=== PATIENT | male | born 1960 | race Caucasian/White ===

== ENCOUNTER → 2016-04-02 | Outpatient (CLI) | payer BC ==
[2016-04-02 08:31] LABS: Basophils # (A) 0.1 k/uL (0-0.2); Basophils % (A) 2 %; CHCM 35.8; Eosinophils # (A) 0.2 k/uL (0-0.7); Eosinophils % (A) 3 %; HCT 47.9 % (39.0-53.0); HDW 2.56; HGB 16.3 gm/dL (13.0-17.5); Luc # (Auto) 0.14; Luc % (Auto) 2; Lymphocytes # (A) 2.4 k/uL (1.0-4.8); Lymphocytes % (A) 34 %; MCH 30.6 pg (25.0-35.0); MCHC 34.1 g/dL (31.0-37.0); MCV 89.8 fL (80.0-100.0); Mean Platelet Volume 7.5; Monocytes # (A) 0.3 k/uL (0-1.0); Monocytes % (A) 5 %; Neutrophils # (A) 3.9 k/uL (1.3-7.7); Neutrophils % (A) 55 %; RBC 5.34 m/uL (4.30-5.90); RDW 12.4 % (11.5-15.5); WBC (Perox) 6.65
[2016-04-02 09:53] LABS: ALT 72 U/L (21-72); AST 39 U/L (17-59); Alkaline Phosphatase 60 U/L (38-126); Anion Gap 9 mmol/L; Blood Urea Nitrogen 14 mg/dL (9-20); Calcium 9.5 mg/dL (8.4-10.2); Carbon Dioxide 27 mmol/L (22-30); Chloride 105 mmol/L (98-107); Cholesterol 236 mg/dL (<200); Glucose 91 mg/dL (74-99); HDL Cholesterol 45 mg/dL (40-60); Non-African American GFR(MDRD) >60 (>60 ml/min/1.73 sqM); Potassium 4.5 mmol/L (3.5-5.1); Sodium 141 mmol/L (137-145); Total Bilirubin 1.2 mg/dL (0.2-1.3); Total Protein 7.1 g/dL (6.3-8.2); Triglycerides 196 mg/dL (<150)
== END | disposition home or self-care (01) ==
LOC: LABWHC1 08:04
PROVIDERS: ATTEND Internal Medicine Critical Care Medicine
DX: Z00.00 Encounter for general adult medical examination without abnormal findings (principal); K21.9 Gastro-esophageal reflux disease without esophagitis; N40.0 Benign prostatic hyperplasia without lower urinary tract symptoms; E78.5 Hyperlipidemia, unspecified; I10 Essential (primary) hypertension
CPT/HCPCS: 84439; 80061; 80053; 83036; 84443; 85025; 82306; 36415; G0103

== ENCOUNTER 2016-06-08 07:04 | Emergency (ER) | payer BC ==
[2016-06-08 07:18] VITALS: BP 128/89; PULSE 97; RESP 20; TEMP 98.5
--- NOTE | 2016-06-08 07:51 | ED ---
General Adult HPI - General Chief complaint: Fall Stated complaint: Fall Time Seen by Provider: 06/08/16 07:25 Source: patient, RN notes reviewed, old records reviewed Mode of arrival: wheelchair Limitations: no limitations - History of Present Illness Initial comments: This is a 56-year-old male the ER for evaluation of fall. Patient has a fall twisting injury to right ankle. Patient also does have injury to his incomplete right side right ankle right shoulder right wrist right elbow he has had positive loss of consciousness. Patient's main location of pain in his right ankle. Patient states follows mechanical in nature he was able to ambulate today - Related Data Home Medications Medication Instructions Recorded Confirmed Ergocalciferol [Vitamin D2] 50,000 unit PO HOFFMAN 06/08/16 06/08/16 Levothyroxine Sodium [Synthroid] 125 mcg PO DAILY 06/08/16 06/08/16 Allergies Allergy/AdvReac Type Severity Reaction Status Date / Time Penicillins AdvReac Anaphylaxis Verified 06/08/16 08:13 Review of Systems ROS Statement: Those systems with pertinent positive or pertinent negative responses have been documented in the HPI. ROS Other: All systems not noted in ROS Statement are negative. Past Medical History Past Medical History: No Reported History History of Any Multi-Drug Resistant Organisms: None Reported Past Surgical History: Orthopedic Surgery Additional Past Surgical History / Comment(s): right knee Past Psychological History: No Psychological Hx Reported Smoking Status: Never smoker Past Alcohol Use History: Rare Past Drug Use History: None Reported General Exam Limitations: no limitations General appearance: alert, in no apparent distress Head exam: Present: atraumatic, normocephalic, normal inspection Eye exam: Present: normal appearance, PERRL, EOMI. Absent: scleral icterus, conjunctival injection, periorbital swelling ENT exam: Present: normal exam, mucous membranes moist Neck exam: Present: normal inspection. Absent: tenderness, meningismus, lymphadenopathy Respiratory exam: Present: normal lung sounds bilaterally. Absent: respiratory distress, wheezes, rales, rhonchi, stridor Cardiovascular Exam: Present: regular rate, normal rhythm, normal heart sounds. Absent: systolic murmur, diastolic murmur, rubs, gallop, clicks GI/Abdominal exam: Present: soft, normal bowel sounds. Absent: distended, tenderness, guarding, rebound, rigid Extremities exam: Present: normal inspection, full ROM, normal capillary refill , other (Right ankle edema). Absent: tenderness, pedal edema, joint swelling, calf tenderness Back exam: Present: normal inspection Neurological exam: Present: alert, oriented X3, CN II-XII intact Psychiatric exam: Present: normal affect, normal mood Skin exam: Present: warm, dry, intact, normal color. Absent: rash Course Vital Signs 06/08/16 07:15 Temperature 98.5 F Pulse Rate 97 Respiratory 20 Rate Blood Pressure 128/89 O2 Sat by Pulse 97 Oximetry - Reevaluation(s) Reevaluation #1: 06/08/16 08:22 At this point patient's pain is improved Medical Decision Making - Medical Decision Making 36 middle ear status post fall, entire right body contusion. No fractures. Patient can be discharged home - Radiology Data Radiology results: report reviewed (CT brain and C-spine negative for acute disease, x-ray right ankle, x-ray right elbow wrist shoulder chest and pelvis are negative for any acute injury), image reviewed Disposition Clinical Impression: Fall, Contusion Disposition: HOME SELF-CARE Condition: Good Instructions: Contusion in Adults (ED) Referrals: Simone Howell DO [Primary Care Provider] - 1-2 days
--- NOTE | 2016-06-08 08:01 | CT ---
EXAMINATION TYPE: CT brain anithaine wo con DATE OF EXAM: 06/08/2016 7:53 AM COMPARISON: NONE HISTORY: fell and hit Rt parietal region CT DLP: Brain 1144.7, Cervical 677.[address] of the brain was performed. The ventricles, basal cisterns and sulci overlying the cerebral convexities demonstrate enlargement. There is no evidence for intracranial hemorrhage or sulcal effacement. There is decreased attenuatio n about the periventricular white matter and deep white matter of both cerebral hemispheres, compatib le with chronic small vessel ischemia. No mass effects are seen. If symptoms persist consider MRI. Osseous calvarium is intact. IMPRESSION: 1. Age related atrophic and chronic small vessel ischemic change without acute intracranial process seen at this time. CT Cervical Spine: Unenhanced CT of the cervical spine was performed with bone and soft tissue window settings submitted . Coronal and sagittal reconstruction is obtained. There is normal alignment and prevertebral soft tissues. No evidence for acute cervical fracture . Scattered degenerative disc disease and spondylosis. Biapical scarring. IMPRESSION: 1. No evidence for acute fracture or subluxation of the cervical spine.
--- NOTE | 2016-06-08 08:11 | XR ---
EXAMINATION TYPE: XR pelvis AP view DATE OF EXAM: 06/08/2016 8:05 AM CLINICAL HISTORY: pain TECHNIQUE: Single view the pelvis is submitted. FINDINGS: No evidence for fracture, dislocation or bony lesion. Joint spaces are well-preserved. S I joints appear symmetric. IMPRESSION: 1. No acute fracture or dislocation seen. ICD 10 NO FRACTURE, INITIAL EVALUATION
--- NOTE | 2016-06-08 08:12 | XR ---
EXAMINATION TYPE: XR ankle complete RT DATE OF EXAM: 06/08/2016 8:05 AM COMPARISON: NONE HISTORY: Pain TECHNIQUE: Frontal, lateral and oblique images of the right ankle are obtained. COMPARISON: None. FINDINGS: There is no acute fracture/dislocation evident. The joint spaces appear within normal mays its. The overlying soft tissue appears unremarkable. IMPRESSION: There is no acute fracture or dislocation seen.
--- NOTE | 2016-06-08 08:13 | XR ---
EXAMINATION TYPE: XR chest 1V DATE OF EXAM: 06/08/2016 8:05 AM HISTORY: Shortness of breath. COMPARISON: None. TECHNIQUE: Single view of the chest is submitted. FINDINGS: Demonstrated are scattered senescent parenchymal change. There is no evidence for focal infiltrate. The heart is stable. Hilar and mediastinal structures are within normal limits. Degenerative changes are seen of the dorsal spine. IMPRESSION: 1. Chronic changes without evidence for acute pulmonary disease.
--- NOTE | 2016-06-08 08:13 | XR ---
EXAMINATION TYPE: XR shoulder complete RT DATE OF EXAM: 06/08/2016 8:05 AM CLINICAL HISTORY: pain TECHNIQUE: Three views of the right shoulder are obtained. COMPARISON: None FINDINGS: There is no acute fracture/dislocation evident. The acromioclavicular and glenohumeral kaitlin int spaces appear within normal limits. The visualized ribs are intact and unremarkable. IMPRESSION: 1. There is no acute fracture or dislocation. ICD 10 NO FRACTURE, INITIAL EVALUATION
--- NOTE | 2016-06-08 08:14 | XR ---
EXAMINATION TYPE: XR wrist complete RT DATE OF EXAM: 06/08/2016 8:05 AM CLINICAL HISTORY: pain TECHNIQUE: Frontal, lateral and oblique images of the right wrist are obtained. Scaphoid view is als o submitted. COMPARISON: None. FINDINGS: There is no acute fracture/dislocation evident. The joint spaces appear within normal limits. The o verlying soft tissue appears unremarkable. IMPRESSION: There is no acute fracture or dislocation seen. ICD 10 NO FRACTURE, INITIAL EVALUATION
--- NOTE | 2016-06-08 08:15 | XR ---
EXAMINATION TYPE: XR elbow complete RT DATE OF EXAM: 06/08/2016 8:05 AM CLINICAL HISTORY: pain TECHNIQUE: Frontal, lateral and oblique images of the right elbow are obtained. COMPARISON: None. FINDINGS: There is no acute fracture/dislocation evident of the elbow. No abnormal fat pad signs ar e seen. Olecranon spurring is noted. The overlying soft tissue appears unremarkable. IMPRESSION: There is no acute fracture or dislocation of the elbow. ICD 10 NO FRACTURE, INITIAL EVALUATION
== END 2016-06-08 08:38 | disposition home or self-care (01) ==
LOC: EC 07:04
DX: S90.01XA Contusion of right ankle, initial encounter (principal); S40.011A Contusion of right shoulder, initial encounter; S60.211A Contusion of right wrist, initial encounter; S50.01XA Contusion of right elbow, initial encounter; S09.90XA Unspecified injury of head, initial encounter; Z88.0 Allergy status to penicillin; Z79.899 Other long term (current) drug therapy; W19.XXXA Unspecified fall, initial encounter
CPT/HCPCS: 70450; 71010; 72125; 72170; 99284

== ENCOUNTER → 2017-05-13 | Outpatient (CLI) | payer BC ==
[2017-05-13 09:05] LABS: Basophils # (A) 0.1 k/uL (0-0.2); Basophils % (A) 1 %; Eosinophils # (A) 0.1 k/uL (0-0.7); Eosinophils % (A) 2 %; HCT 50.2 % (39.0-53.0); HGB 16.8 gm/dL (13.0-17.5); Lymphocytes % (A) 32 %; MCH 28.8 pg (25.0-35.0); MCHC 33.5 g/dL (31.0-37.0); Mean Platelet Volume 7.2; Monocytes # (A) 0.4 k/uL (0-1.0); Monocytes % (A) 6 %; Neutrophils # (A) 3.8 k/uL (1.3-7.7); Neutrophils % (A) 59 %; Platelet Count 239 k/uL (150-450); RBC 5.84 m/uL (4.30-5.90); RDW 12.4 % (11.5-15.5); WBC 6.5 k/uL (3.8-10.6)
[2017-05-13 09:26] LABS: ALT 44 U/L (21-72); AST 31 U/L (17-59); Alkaline Phosphatase 82 U/L (38-126); Anion Gap 11 mmol/L; Blood Urea Nitrogen 17 mg/dL (9-20); Calcium 9.8 mg/dL (8.4-10.2); Carbon Dioxide 29 mmol/L (22-30); Chloride 103 mmol/L (98-107); Cholesterol 201 mg/dL (<200); Glucose 88 mg/dL (74-99); HDL Cholesterol 48 mg/dL (40-60); LDL Cholesterol,Calculated 105 mg/dL (0-99); Potassium 4.5 mmol/L (3.5-5.1); Sodium 143 mmol/L (137-145); Total Bilirubin 0.9 mg/dL (0.2-1.3); Total Protein 7.2 g/dL (6.3-8.2); Triglycerides 242 mg/dL (<150)
[2017-05-13 09:39] LABS: T4, Free (Free Thyroxine) 1.17 ng/dL (0.78-2.19)
[2017-05-13 09:53] LABS: PSA Annual Screen 1.27 ng/mL (0.00-4.00)
[2017-05-13 18:37] LABS: Hemoglobin A1C 4.9 % (4.0-6.0)
== END ==
LOC: LABWHC1 08:06
PROVIDERS: ATTEND Internal Medicine Critical Care Medicine
DX: Z00.00 Encounter for general adult medical examination without abnormal findings (principal); E78.5 Hyperlipidemia, unspecified; I10 Essential (primary) hypertension; N40.0 Benign prostatic hyperplasia without lower urinary tract symptoms; Z12.5 Encounter for screening for malignant neoplasm of prostate
CPT/HCPCS: 84439; 80061; 80053; 84443; 85025; 82306; 83036; 36415; G0103

== ENCOUNTER → 2018-05-19 | Outpatient (CLI) | payer BC ==
[2018-05-19 09:27] LABS: Basophils # (A) 0.1 k/uL (0-0.2); Basophils % (A) 1 %; Eosinophils # (A) 0.2 k/uL (0-0.7); Eosinophils % (A) 2 %; HCT 46.5 % (39.0-53.0); Lymphocytes # (A) 2.3 k/uL (1.0-4.8); Lymphocytes % (A) 37 %; MCH 29.8 pg (25.0-35.0); MCHC 34.4 g/dL (31.0-37.0); MCV 86.7 fL (80.0-100.0); Mean Platelet Volume 9.4; Monocytes # (A) 0.3 k/uL (0-1.0); Monocytes % (A) 5 %; Neutrophils # (A) 3.4 k/uL (1.3-7.7); Neutrophils % (A) 54 %; Platelet Count 210 k/uL (150-450); RBC 5.37 m/uL (4.30-5.90); RDW 15.1 % (11.5-15.5); WBC 6.3 k/uL (3.8-10.6)
[2018-05-19 16:50] LABS: Albumin 3.9 g/dL (3.80-4.90); Albumin/Globulin Ratio 1.7 (1.60-3.17); Anion Gap 6.7 mmol/L (4.00-12.00); Calcium 9.4 mg/dL (8.7-10.3); Carbon Dioxide 29.3 mmol/L (21.6-31.8); Globulin 2.3 g/dL (1.6-3.3); Potassium 4.4 mmol/L (3.5-5.5); Total Bilirubin 1.1 mg/dL (0.2-1.2); Total Protein 6.2 g/dL (6.2-8.2)
[2018-05-19 16:51] LABS: Bilirubin, Conjugated 0.2 mg/dL (0.20-0.40); Bilirubin,Unconjugated 0.9 mg/dL; LDL Cholesterol,Calculated 94.4 mg/dL (0.0-131.0); VLDL Calculation 60.6 mg/dL (5.00-40.00)
[2018-05-19 17:00] LABS: T4, Free (Free Thyroxine) 1.3 ng/dL (0.80-1.80)
[2018-05-19 21:22] LABS: Hemoglobin A1C 5.1 % (4.0-6.0)
== END | disposition home or self-care (01) ==
LOC: LABWHC1 08:12
PROVIDERS: ATTEND Internal Medicine Critical Care Medicine
DX: Z00.00 Encounter for general adult medical examination without abnormal findings (principal); I10 Essential (primary) hypertension; E78.5 Hyperlipidemia, unspecified; Z79.899 Other long term (current) drug therapy
CPT/HCPCS: 84439; 84481; 80061; 80053; 82248; 84443; 85025; 83036; 36415; G0103

== ENCOUNTER → 2018-06-06 | Outpatient (CLI) | payer BC ==
--- NOTE | 2018-06-11 16:43 | MR ---
MR right hip HISTORY: Pain in right hip Multiplanar multisequence imaging through the pelvis with small [id number] imaging through the rig ht hip Comparison plain film 05/28/2018, 05/10/2018 There is mild increased signal at the insertion of the gluteus medius tendon on the greater trochante r, there may be some local tendinosis. There is no evident joint effusion. Grade II chondromalacia ch anges are suspected in the right hip. Suspect there may be some labral sulcus. No joint effusion. Clu ster of grapes T2 intense focus within the medial ischium posterior aspect shows intermediate signal on T1-weighted images, there is no associated mass, lesion is clustered grapes type appearance measur ing approximately 12 mm. The prostate is enlarged. Bladder wall thickening is likely due to chronic outlet obstruction. IMPRESSION: Mild osteoarthritis. There may be tendinosis of the gluteus medius medius insertion. Abigail ggressive appearing lesion within the right ischium as described may represent an chondroma or gangli on cyst, follow-up could be performed to assess for stability.
== END | disposition home or self-care (01) ==
LOC: RADMRIMAIN 16:44
PROVIDERS: ATTEND Orthopaedic Surgery
DX: M16.11 Unilateral primary osteoarthritis, right hip (principal); M89.9 Disorder of bone, unspecified

== ENCOUNTER 2018-09-12 06:17 | Day surgery (SDC) | payer BC ==
[2018-09-06 15:49] VITALS: BMI 30.9
[~2018-09-12 06:17] MED LIST: LACTATED RINGERS 1,000 ML IV SCH
[2018-09-12 06:35] VITALS: RESP 16
[2018-09-12 06:39] VITALS: TEMP 97
[2018-09-12] MEDS ORDERED: LIDOCAINE 1% 20 ML VIAL (10MG/ML) FOR IV START INTRADERMA ONE (06:43)
[2018-09-12] MEDS ORDERED: IV FLUID CONTINUATION 1,000 ML IV ONE (07:41)
[2018-09-12 08:26] VITALS: BP 145/92; PULSE 71
--- NOTE | 2018-09-12 08:34 | FL ---
EXAMINATION TYPE: FL guided pain mgmt statistic DATE OF EXAM: 09/12/2018 CLINICAL HISTORY: Low back pain. Fluoroscopic documentation for lumbar epidural injection TECHNIQUE: Fluoroscopy. COMPARISON: None. FINDINGS: Fluoroscopic guidance was provided during pain relief procedure performed by Dr. Hyman. A t otal of 2 seconds of fluoroscopic time was utilized during the procedure and 1 spot images are acquir ed. Images acquired shows needle localization of the lumbar spine. However, it is noted in the notes that the examination was aborted due to patient pain. IMPRESSION: As Above.
--- NOTE | 2018-09-12 09:37 | P.PCN ---
Date of Procedure: 09/12/18 Procedure(s) Performed: PREOPERATIVE DIAGNOSIS: 1- Lumbar radiculopathy, Lumbar Degenerative Disc Diseases 2-Lumbar spondylosis with Facet arthropathy without myelopathy POSTOPERATIVE DIAGNOSIS: 1-Lumber Degenerative Disc Diseases 2-Lumbar spondylosis with Facet arthropathy without myelopathy PROCEDURE Patient was scheduled to have L1-2 lumbar epidural steroid injection. Patient was prepped and draped in the usual sterile fashion and skin and subcu tissue was anesthetized with 3 mL of 1% lidocaine. A 20-gauge Tuohy needle was advanced to word the epidural space. At the time of advancement, patient reported that he was feeling lightheaded, heart rate dropped from high 50s to low 30s. Patient then lost consciousness. Needle was removed from back and patient placed supine on stretcher. 1 mg of atropine was given IV and I initiated chest compressions for about 1 second, then patient had return of consciousness. Blood pressure and heart rate were stable. Procedure was aborted. I suspect that patient had a vasovagal attack. No other treatment was given. Patient was monitored for about an hour in the recovery room. Vital signs were stable. Patient was told that we will reschedule this procedure. We will plan on pretreating with IV atropine and 1 L fluid bolus prior to procedure to avoid vasovagal attack. Patient expressed understanding
== END 2018-09-12 09:02 | disposition home or self-care (01) ==
LOC: ORPAIN 06:17
PROVIDERS: ATTEND Anesthesiology
DX: M51.16 Intervertebral disc disorders with radiculopathy, lumbar region (principal); M47.26 Other spondylosis with radiculopathy, lumbar region; Z53.8 Procedure and treatment not carried out for other reasons; I97.791 Other intraoperative cardiac functional disturbances during other surgery
CPT/HCPCS: 62323; J2250; J0461; J3010; 99152

== ENCOUNTER → 2019-12-11 | Day surgery (SDC) | payer BC ==
[2019-12-09 11:48] VITALS: BMI 30.9
[~2019-12-11] MED LIST changes: +LIDOCAINE 1% INJ 10MG/ML (20 ML MDV) ONE; +MIDAZOLAM 2 MG/2 ML VIAL IV PRN; +ONDANSETRON 4 MG/2 ML VIAL IVP PRN; +PROPOFOL 10 MG/ML 20 ML VIAL IV ONE; +fentaNYL (PF) 50 MCG/ML 2 ML AMP IV PRN
[2019-12-11 10:10] VITALS: RESP 16
--- NOTE | 2019-12-11 11:26 | P.PCN ---
Date of Procedure: 12/11/19 Procedure(s) Performed: Brief history: Patient is a pleasant 59-year-old white male scheduled for an elective upper endoscopy as well as colonoscopy as a part of evaluation of GERD and screening for colorectal neoplasia. Procedure performed: Esophagogastroduodenoscopy with biopsy Colonoscopy Preoperative diagnosis: GERD Screening for colon cancer Anesthesia: MAC Procedure: After informed consent was obtained from the patient was brought into the endoscopy unit and IV sedation was administered by anesthesia under continuous monitoring. Initially upper endoscopy was done. The Olympus GF 160 video endoscope was inserted inserted into the mouth and esophagus intubated without any difficulty and was gradually advanced into the stomach and duodenum and carefully examined. The bulb and second part of the duodenum appeared normal. The scope was then withdrawn into the stomach adequately insufflated with air and upon careful examination the antrum mild gastritis and biopsies were done from this area. The body, cardia and fundus appeared normal. The scope was then withdrawn into the esophagus. The GE junction was located at 40 cm to the incisors. small sliding Hernia Noted. There Was Circumferential Erythema of the GE Junction consistent with LA grade A Reflux Esophagitis. Also There Was a Widely Patent distal esophageal Schatzki's Ring Identified. Rest of the esophagus appeared normal. abscesses were done from the distal esophagus. Patient tolerated the procedure well. At this time the patient continued to remain sedation. Initial digital rectal examination was normal. Olympus CF 160 video colonoscope was then inserted into the rectum and gradually advanced to the cecum without any difficulty. Careful examination was performed as the scope was gradually being withdrawn. The prep was excellent. The cecum, ascending colon, transverse colon, descending colon, sigmoid colon and rectum appeared normal. Retroflexion was performed in the rectum and no lesions were noted. Patient tolerated the procedure well. Impression: 1. Upper Endoscopy revealed small hiatal hernia, LA grade a reflux esophagitis. Small hiatal hernia widely patent distal esophageal Schatzki's ring. 2. Colonoscopy was within normal limits with no evidence of colitis or color ectal neoplasia Recommendations: Findings of this examination were discussed with the patient as well as family. He was advised to follow with the biopsy results. he will remain on omeprazole 20 mg daily and follow antireflux measures. He can have a repeat screening colonoscopy in 10 years.
[2019-12-11 11:32] VITALS: BP 142/94; PULSE 87
== END ==
LOC: ORWHC2ENDO 09:05
PROVIDERS: ATTEND Internal Medicine Gastroenterology
DX: Z12.11 Encounter for screening for malignant neoplasm of colon (principal); K29.50 Unspecified chronic gastritis without bleeding; K22.2 Esophageal obstruction; K21.00 Gastro-esophageal reflux disease with esophagitis, without bleeding; K44.9 Diaphragmatic hernia without obstruction or gangrene; G47.33 Obstructive sleep apnea (adult) (pediatric); M10.9 Gout, unspecified; E07.9 Disorder of thyroid, unspecified; Z88.0 Allergy status to penicillin; Z79.890 Hormone replacement therapy; Z79.899 Other long term (current) drug therapy; Z90.49 Acquired absence of other specified parts of digestive tract; Z99.89 Dependence on other enabling machines and devices
CPT/HCPCS: 88305; 43239; J2001; J2704; G0121

== ENCOUNTER → 2020-01-02 | Outpatient (CLI) | payer BC ==
--- NOTE | 2020-01-02 22:52 | CT ---
EXAMINATION TYPE: CT pelvis wo con DATE OF EXAM: 01/02/2020 COMPARISON: None HISTORY: Radiculopathy CT DLP: 485.1 mGycm Automated exposure control for dose reduction was used. FINDINGS: Some facet hypertrophy is present L5-S1. No spinal canal stenosis is noted. Some endplate spurring at S1 may be present with moderate bilateral foraminal narrowing may be present. Correlate with the rad icular symptoms Femoral heads articulate with the acetabulum. Symphysis pubis is normal. Sacroiliac joints are normal . Loops of bowel visualized normal. The appendix partially visualized is normal. Urinary bladder is unr emarkable. Prostate contains calcification. IMPRESSION: DEGENERATIVE DISC CHANGES L5-S1 WITH BILATERAL FORAMINAL NARROWING AT THIS LEVEL.
== END | disposition home or self-care (01) ==
LOC: RADCTMAIN 10:51
DX: M54.16 Radiculopathy, lumbar region (principal)
CPT/HCPCS: 72192

== ENCOUNTER → 2020-04-24 | Outpatient (CLI) | payer OTHER ==
[2020-04-24 15:26] LABS: Basophils # (A) 0.05 X 10*3/uL (0.00-0.10); Eosinophils % (A) 1.9 %; HCT 46.4 % (39.6-50.0); HGB 16.3 g/dL (13.0-17.0); Lymphocytes # (A) 1.97 X 10*3/uL (0.90-5.00); Lymphocytes % (A) 37.8 %; MCH 31.2 pg (27.0-32.0); MCHC 35.1 g/dL (32.0-37.0); MCV 88.9 fL (80.0-97.0); Mean Platelet Volume 10.5 fL (9.5-12.2); Monocytes % (A) 7.7 %; Neutrophils # (A) 2.67 X 10*3/uL (1.80-7.70); Neutrophils % (A) 51.2 %; Platelet Count 242 X 10*3/uL (140-440); RBC 5.22 X 10*6/uL (4.40-5.60); RDW 12.2 % (11.5-14.5); WBC 5.21 X 10*3/uL (4.50-10.00)
[2020-04-24 18:23] LABS: Hemoglobin A1C 4.8 % (4.0-6.0)
[2020-04-24 19:12] LABS: African American GFR (CKD) 84.1 (60.0-200.0); Albumin 4.2 g/dL (3.80-4.90); Albumin/Globulin Ratio 1.83 (1.60-3.17); Anion Gap 8.8 mmol/L (4.00-12.00); BUN/Creat Ratio 13.64 Ratio (12.00-20.00); Calcium 9.7 mg/dL (8.7-10.3); Carbon Dioxide 26.2 mmol/L (21.6-31.8); Chol/HDL Ratio 5.29; Globulin 2.3 g/dL (1.6-3.3); LDL Cholesterol,Calculated 132.4 mg/dL (0.0-131.0); Non-African American GFR(CKD) 72.6 (60.0-200.0); Potassium 4.4 mmol/L (3.5-5.5); Total Bilirubin 1.1 mg/dL (0.2-1.2); Total Protein 6.5 g/dL (6.2-8.2); VLDL Calculation 30.6 mg/dL (5.00-40.00)
[2020-04-24 19:21] LABS: PSA Annual Screen 1.1 ng/mL (0.0-4.0); T4, Free (Free Thyroxine) 1.5 ng/dL (0.80-1.80)
== END | disposition home or self-care (01) ==
LOC: LABWHC1 07:46
PROVIDERS: ATTEND Internal Medicine Critical Care Medicine
DX: Z00.00 Encounter for general adult medical examination without abnormal findings (principal); N40.0 Benign prostatic hyperplasia without lower urinary tract symptoms; I10 Essential (primary) hypertension; K21.9 Gastro-esophageal reflux disease without esophagitis; E78.5 Hyperlipidemia, unspecified; G89.29 Other chronic pain
CPT/HCPCS: 84439; 80061; 80053; 84443; 85025; 82306; 83036; 36415; G0103

== ENCOUNTER → 2021-05-11 | Outpatient (CLI) | payer OTHER ==
[2021-05-11 10:15] LABS: Basophils # (A) 0.07 X 10*3/uL (0.00-0.10); Basophils % (A) 1.2 %; Eosinophils # (A) 0.12 X 10*3/uL (0.04-0.35); Eosinophils % (A) 2.1 %; Immature Grans, Automated 0.5 %; Lymphocytes # (A) 1.92 X 10*3/uL (0.90-5.00); Lymphocytes % (A) 33.2 %; MCH 30.5 pg (27.0-32.0); MCHC 33.3 g/dL (32.0-37.0); MCV 91.4 fL (80.0-97.0); Mean Platelet Volume 10.3 fL (9.5-12.2); Monocytes # (A) 0.42 X 10*3/uL (0.20-1.00); Monocytes % (A) 7.3 %; NRBC Per 100 WBC 0 /100 WBCS (0.0-0.0); Neutrophils # (A) 3.23 X 10*3/uL (1.80-7.70); Neutrophils % (A) 55.7 %; Platelet Count 200 X 10*3/uL (140-440); RBC 5.25 X 10*6/uL (4.40-5.60); RDW 12.1 % (11.5-14.5); WBC 5.79 X 10*3/uL (4.50-10.00)
[2021-05-11 10:40] LABS: ALT 47 U/L (10-49); AST 36 U/L (14-35); African American GFR (CKD) 78.3 (60.0-200.0); Albumin 4.1 g/dL (3.8-4.9); Albumin/Globulin Ratio 1.39 (1.60-3.17); Alkaline Phosphatase 60 U/L (41-126); BUN/Creat Ratio 11.98 Ratio (12.00-20.00); Blood Urea Nitrogen 13.9 mg/dL (9.0-27.0); Calcium 9.7 mg/dL (8.7-10.3); Carbon Dioxide 25.4 mmol/L (20.0-27.5); Chloride 104 mmol/L (96-109); Glucose 90 mg/dL (70-110); LDL Cholesterol,Calculated 119.7 mg/dL (0.0-131.0); Non-African American GFR(CKD) 67.6 (60.0-200.0); Potassium 4.5 mmol/L (3.5-5.5); Sodium 139 mmol/L (135-145); Total Protein 7.1 g/dL (6.2-8.2)
== END | disposition home or self-care (01) ==
LOC: LABWHC1 07:11
PROVIDERS: ATTEND Internal Medicine Critical Care Medicine
DX: Z00.00 Encounter for general adult medical examination without abnormal findings (principal); N40.0 Benign prostatic hyperplasia without lower urinary tract symptoms; E78.5 Hyperlipidemia, unspecified; I10 Essential (primary) hypertension
CPT/HCPCS: 36415; 80053; 80061; 82306; 83036; 84153; 84439; 84480; 85025

== ENCOUNTER → 2021-08-11 | Outpatient (CLI) | payer OTHER ==
--- NOTE | 2021-08-12 04:54 | MR ---
EXAMINATION TYPE: MR shoulder RT wo con DATE OF EXAM: 08/11/2021 COMPARISON: None HISTORY: Right shoulder pain and limited range of motion due to fall in april. Multiplanar multiecho imaging of the right shoulder with no contrast. There is a mild shoulder joint effusion with fluid around the subscapularis tendon. The biceps tendon is intact with fluid around the tendon. The glenoid adryan appear intact. There is some spurring at t he AC joint. The infraspinatus tendon shows some mild increased fluid signal. The supraspinatus tendo n shows very slight thickening and increased signal but no full-thickness tear. There is no evidence of a fracture. Glenohumeral joint is anatomic. IMPRESSION: There is some increased flow around the biceps tendon and subscapularis tendon consistent with some s ynovitis. No evidence of full-thickness rotator cuff tear. There is intrasubstance tears of the infra spinatus tendon and the supraspinatus tendon.
== END | disposition home or self-care (01) ==
LOC: RADMRIMAIN 18:38
PROVIDERS: ATTEND Orthopaedic Surgery
DX: M25.511 Pain in right shoulder (principal); W19.XXXA Unspecified fall, initial encounter; Z91.81 History of falling

== ENCOUNTER → 2021-08-18 | Outpatient (CLI) | payer OTHER ==
[2021-08-18 14:26] LABS: Basophils # (A) 0.06 X 10*3/uL (0.00-0.10); Basophils % (A) 1.1 %; Eosinophils % (A) 1.8 %; HCT 47.3 % (39.6-50.0); HGB 15.8 g/dL (13.0-17.0); Immature Grans, Automated 0.2 %; Lymphocytes # (A) 1.61 X 10*3/uL (0.90-5.00); Lymphocytes % (A) 29.1 %; MCHC 33.4 g/dL (32.0-37.0); MCV 89.9 fL (80.0-97.0); Mean Platelet Volume 10.7 fL (9.5-12.2); Monocytes # (A) 0.47 X 10*3/uL (0.20-1.00); Monocytes % (A) 8.5 %; NRBC Per 100 WBC 0 /100 WBCS (0.0-0.0); Neutrophils # (A) 3.28 X 10*3/uL (1.80-7.70); Neutrophils % (A) 59.3 %; Platelet Count 227 X 10*3/uL (140-440); RBC 5.26 X 10*6/uL (4.40-5.60); WBC 5.53 X 10*3/uL (4.50-10.00)
[2021-08-18 14:28] LABS: African American GFR (CKD) 83.5 (60.0-200.0); Anion Gap 8.4 mmol/L (10.00-18.00); BUN/Creat Ratio 11.27 Ratio (12.00-20.00); Blood Urea Nitrogen 12.4 mg/dL (9.0-27.0); Calcium 9.5 mg/dL (8.7-10.3); Carbon Dioxide 26.6 mmol/L (20.0-27.5); Non-African American GFR(CKD) 72.1 (60.0-200.0); Potassium 4.4 mmol/L (3.5-5.5)
== END | disposition home or self-care (01) ==
LOC: LABPAT 09:47
PROVIDERS: ATTEND Orthopaedic Surgery
DX: Z01.812 Encounter for preprocedural laboratory examination (principal); M75.41 Impingement syndrome of right shoulder
CPT/HCPCS: 80048; 85025

== ENCOUNTER 2021-09-17 07:44 | Day surgery (SDC) | payer OTHER ==
--- NOTE | 2021-09-02 08:25 | HP ---
HISTORY AND PHYSICAL CHIEF COMPLAINT: Right shoulder pain. HISTORY OF PRESENT ILLNESS: The patient is a 61-year-old, right-hand dominant, retired gentleman who presents with persistent/progressive right shoulder pain and weakness after an injury on April 16, 2021. He notes anterior lateral pain when trying to reach overhead and out to the side. He is having significant night symptoms. He has tried therapy in addition he has tried medications and previous injections, without much relief. PAST MEDICAL HISTORY: Significant for hypothyroidism. PAST SURGICAL HISTORY: Significant for right knee surgery, lumbar spine surgery, cholecystectomy, and bilateral carpal tunnel release. CURRENT MEDICATIONS: Synthroid, aspirin. ALLERGIES: HE HAS ALLERGIES TO PENICILLIN, TESTOSTERONE, AND HEPARIN. FAMILY HISTORY: Significant for cancer. SOCIAL HISTORY: Significant for previous tobacco use. REVIEW OF SYSTEMS: 16-point review of systems otherwise is reviewed and is noncontributory. PHYSICAL EXAMINATION: On examination, the patient is approximately 6 foot 1, 240 pounds of endomorphic habitus. HEENT exam is nonfocal. Neck is supple. Examination of right shoulder: He is tender about the anterior subacromial space. Active range of motion. Forward elevation 145 degrees. External rotation with arm at side 60 degrees, internal rotation to L4. Motor strength is 4+/5 for external rotation and abduction. Passive forward elevation is 145 degrees. Impingement test, Neer test and Speed test are positive. His distal neurovascular exam appears intact in the right upper extremity. MRI report right shoulder 08/11/2021 shows evidence of synovitis along with increasing along the anterior supraspinatus. IMPRESSION: 1. Right rotator cuff strain/glenohumeral synovitis. 2. Possible partial-thickness rotator cuff tear/proximal biceps tendinosis. RECOMMENDATIONS: I talked to the patient at length regarding his condition along with treatment options. At this point, he is quite symptomatic despite previous conservative measures. After thorough discussion, he opts to proceed with surgery. We will plan to proceed with arthroscopic evaluation with probable subacromial decompression/synovectomy/rotator cuff debridement versus repair in addition, possible biceps tenotomy. We will likely perform that as an outpatient procedure. Risks and benefits were discussed at length in layman's terms. MMODL / IJN: [id number] /
[2021-09-15 09:59] VITALS: BMI 31.4
[~2021-09-17 07:44] MED LIST changes: +DEXAMETHASONE SOD PHOSPHATE 4 MG/ML 1 ML VIAL IV ONE; +HYDROmorphone 0.5 MG/0.5 ML SYRINGE IVP PRN; +LIDOCAINE 1% (10MG/ML) FOR IV START INTRADERMA PRN; -LIDOCAINE 1% INJ 10MG/ML (20 ML MDV) ONE; -MIDAZOLAM 2 MG/2 ML VIAL IV PRN; +ONDANSETRON 4 MG/2 ML VIAL IVP ONE; -ONDANSETRON 4 MG/2 ML VIAL IVP PRN; -PROPOFOL 10 MG/ML 20 ML VIAL IV ONE; -fentaNYL (PF) 50 MCG/ML 2 ML AMP IV PRN
[2021-09-17] MEDS ORDERED: LACTATED RINGERS 1,000 ML IV ONE (08:30)
[2021-09-17] MEDS ORDERED: ONDANSETRON 4 MG/2 ML VIAL IVP ONE (08:35)
[2021-09-17] MEDS ORDERED: DEXAMETHASONE SOD PHOSPHATE 4 MG/ML 1 ML VIAL IVP ONE (08:35)
[2021-09-17] MEDS ORDERED: KETAMINE 10 MG/ML 20 ML VIAL ONE (09:59)
[2021-09-17] MEDS ORDERED: GLYCOPYRROLATE 0.2 MG/ML 2 ML VIAL ONE (09:59)
[2021-09-17] MEDS ORDERED: PROPOFOL 10 MG/ML 20 ML VIAL IV ONE (09:59)
[2021-09-17] MEDS ORDERED: LIDOCAINE 2% INJ 20 MG/ML (2 ML VIAL) ONE (09:59)
[2021-09-17] MEDS ORDERED: SUCCINYLCHOLINE CHLORIDE 200 MG/10 ML VIAL IV ONE (09:59)
[2021-09-17] MEDS ORDERED: fentaNYL (PF) 50 MCG/ML 2 ML AMP ONE (09:59)
[2021-09-17] MEDS ORDERED: MIDAZOLAM 2 MG/2 ML VIAL ONE (09:59)
[2021-09-17] MEDS ORDERED: ePHEDrine 50 MG/ML 1 ML VIAL ONE (09:59)
[2021-09-17] MEDS ORDERED: EPINEPHrine (PF) 1 ML in SODIUM CHLORIDE 0.9% IRRIGATIO 3,000 ML IRRIGATION ONE ×8 (10:02)
--- NOTE | 2021-09-17 11:33 | P.OP ---
Date of Procedure: 09/17/21 Preoperative Diagnosis: Right shoulder impingement/partial thickness rotator cuff tear Postoperative Diagnosis: High-grade partial-thickness tear anterior supraspinatus1 cm, posterior superior labral tear Procedure(s) Performed: Right shoulder arthroscopic subacromial decompression/rotator cuff repair/posterior labral debridement Implants: Arthrex 5.5 mm swivel lock anchor 1 Anesthesia: GETA Surgeon: Elio Wilcox Estimated Blood Loss (ml): 10 Pathology: none sent Condition: stable Disposition: PACU Indications for Procedure: The patient's a 61-year-old male who presents with progressive right shoulder pain after a recent injury despite conservative measures. A discussion of the risks and benefits of operative intervention versus continued conservative measures was had with the patient. He opted to proceed with surgery. Operative risks to include infection, neurovascular injury, development of blood clots, possible tendon rerupture, possible postoperative stiffness and need for subsequent procedures was discussed. Informed consent was obtained. Operative Findings: As below Description of Procedure: The patient was brought to the operating room, and after induction of general a nesthesia was placed in a beachchair position. A preoperative interscalene block was placed for postoperative analgesia. I examined the right shoulder. There was no gross block to passive motion or gross glenohumeral instability. The right upper extremity was prepped and draped in normal fashion. The bony outlines the acromion, distal clavicle, and coracoid process were outlined with a skin marker. The glenohumeral joint was inflated with 50 mL of saline utilizing a spinal needle from posterior approach. A posterior portal was made through a 5 mm skin incision 1 cm medial and inferior to the posterior lateral border time. A blunt trocar was used to easily into the joint. Diagnostic arthroscopy was performed. An anterior portal was made just lateral to the coracoid process entering the joint above the subscapularis tendon. The subscapularis tendon appeared to be intact. Anterior labrum was intact. The inferior recess was inspected. There was fraying/tearing of the posterior aspect of the superior labrum at the biceps anchor. This was debrided back to a stable base with a motorized shaver. The remaining biceps anchor was stable and intact. The biceps appeared to be intact. On inspection the rotator cuff, a high-grade tear involving the anterior aspect the supraspinatus was noted measuring approximately 1 cm. Proximally 80-90% of the tendon thickness was involved. This was debrided with a motorized shaver. The tear was completed. The posterior portion the rotator cuff was intact. The arthroscope was placed into the subacromial space. A lateral portal was made 2 centimeters inferior to the anterior lateral border of the acromion. The rotator cuff tear was identified and easily mobilized. The soft tissue on the undersurface of the acromion was debrided with a motorized shaver and electrocautery clearly defining the anterior medial and lateral borders as well as the distal clavicle. An anterior inferior acromioplasty was performed with a motorized yonis starting anterolateral, then extending this posteriorly, then extending this medially. I converted to a flat acromion and this was verified in the posterior and lateral viewing portals. The greater tuberosity was lightly decorticating with a shaver down to a bleeding bony surface. A #2 fiber wire was passed through the rotator cuff along with a fiber link. These 3 suture limbs were then placed in the lateral anchor that was inserted with the appropriate starting awl. Good purchase was obtained. Final arthroscopic view showed adequate compression at the footprint. The arthroscope was then removed. The portals were closed with simple 3-0 nylon sutures. A sterile dressing was applied in addition to a sling. The patient was then awoken from general anesthesia and transferred to recovery room in good condition. Blood loss was estimated at 10 mL. No complications were incurred. Sponge and needle counts were correct in the case. A nurse assisted during the major components of the case to include arm positioning, anchor placement, and rotator cuff repair.
[2021-09-17 11:38] VITALS: TEMP 97
[2021-09-17 12:19] VITALS: RESP 18
[2021-09-17 14:00] VITALS: BP 135/86; PULSE 86
== END 2021-09-17 14:20 | disposition home or self-care (01) ==
LOC: OR 07:44
PROVIDERS: ATTEND Orthopaedic Surgery
DX: S43.431A Superior glenoid labrum lesion of right shoulder, initial encounter (principal); X58.XXXA Exposure to other specified factors, initial encounter; E03.9 Hypothyroidism, unspecified; G47.33 Obstructive sleep apnea (adult) (pediatric); Z87.891 Personal history of nicotine dependence; K21.9 Gastro-esophageal reflux disease without esophagitis; Z80.9 Family history of malignant neoplasm, unspecified; Z79.82 Long term (current) use of aspirin; Z79.890 Hormone replacement therapy; Z88.0 Allergy status to penicillin; Z88.8 Allergy status to other drugs, medicaments and biological substances; Z91.09 Other allergy status, other than to drugs and biological substances
CPT/HCPCS: 29826; 29827; C1713 ×2; C1894; J2250; J0330; J1100; J0690; J2405; J0171; J3010; J2704; J1170; J2001

== ENCOUNTER → 2022-05-04 | Outpatient (CLI) | payer MEDICARE, OTHER ==
[2022-05-04 08:11] VITALS: BP 138/86; PULSE 73; RESP 18; TEMP 98.7
--- NOTE | 2022-05-04 14:25 | P.PAINPG ---
PQRS Measure Charge Sheet Comment: HISTORY OF PRESENT ILLNESS: 62 yr old male w at side as a referral from Dr Irene presents today w severe and chronic secondary to for evaluation. Pt states pain level is at 9 /10 in intensity, constant, localized in the R lower lumbar spine, sharp, achy in character w shooting pain towards the Buttocks. Pain is provoked by sitting for periods of 30 min or more. Pain is alleviated by PT x 2 mo which he is currently in, massage therapy at home, heat, medications (Ibu), topicals, repositioning and rest. PMH: OA, Hypothyroidism PSH: Lumbar Surgery (2001), LESI (2018), EGD/ Colonoscopy (2019), EGD (2022), Cholecystectomy, R RCT Repair (2021), R Knee Surgery, [facility], SH: Never smoker, Rare ETOH use, No illicit drug use FH: Non contributory All: PCN Meds: See lsit REVIEW OF ORGAN SYSTEMS: CONSTITUTIONAL: No fevers or chills. No recent weight loss. NEUROLOGICAL: + numbness and tingling along the distal extremities. No seizure disorders or headaches. MUSCULOSKELETAL: + pain PSYCHIATRIC: Denies current depression or suicidal thoughts. Physical Examinations : Constitutional : Cooperative , not in acute distress . Neurologic : Cranial nerve II to XII intact. No focal neurological deficits. Psychiatric : alert & oriented x 3. Matching mood & appropriate affect. Judgment & insight intact. Musculoskeletal : Cervical Spine Motor strength in the deltoid and biceps: Normal right side. Normal Left side Motor strength biceps and the wrist extensors: Normal right side . Normal left side Motor strength in the triceps muscle: Normal right side. Normal left side Deep tendon reflexes: Normal at the biceps. Normal at Brachioradialis. Normal at triceps Vertebral body tenderness to deep palpation over Cervical facet loading test: positive bilaterally Spurling test: positive bilaterally Neck distraction test: positive bilaterally Stevan sign: positive bilaterally Lumbar spine Motor strength lower extremities ,thigh and legs 5/5 Right side , 5/5 Left side Deep tendon reflexes : Normal Knee Jerk. Normal Ankle Jerk Vertebral body tenderness over Lumbar facet Loading Test: positive Right / positive Left Range of motion of the lumbar spine Flexion 30 degrees, extension 10 degrees Straight Leg Raise test: Left/ Right positive at degree Charmaine test: positive right / positive left. Severe tenderness over the Sacroiliac joint on the Right / Left sides Gaenslen test: positive bilaterally Seated flexion test: positive bilaterally. Sacral spine : Severe tenderness over the Sacroiliac joint: right side / left side Range of motion: Flexion of the lumbar spine <60 degrees Range of motion: Extension of the lumbar spine <20 degrees Gaenslen's Test positive on R Charmaine test: positive right side / left side Thigh Thrust Test Sacral Thrust Test Imaging: x ray of lumbar spine from 04/18/22 reviewed Assessment/ Plan : R Sacroiliitis Recommendation of R SI injection. Pt and at side request full sedation and state that they will not go through procedure w twilight. Stated they will go to another hospital where full sedation was previously granted for this procedure. All questions answered. I have spent greater than 30 minutes on patient care today. Dr Huber was available by phone for the evaluation of this patient. The time was used to review the medical records including relevant urine studies and Prescription history (MAPs), review of the available imaging, evaluation and examination of the patient, coordination of care with the medical staff and if applicable referring physicians, as well as creation of the medical record PQRS Narrative: Smoking Status Former smoker Home Medications: Ambulatory Orders Ergocalciferol [Vitamin D2] 50,000 unit PO HOFFMAN 06/08/16 Levothyroxine Sodium [Synthroid] 125 mcg PO DAILY 06/08/16 Pantoprazole [Protonix] 40 mg PO W/SUPPER 09/15/21 methocarbamoL [Methocarbamol] 750 mg PO DAILY PRN 09/15/21 Controlled Substance Measures - Controlled Substance Measures Is patient prescribed a controlled substance at discharge?: No
== END ==
LOC: PNWHC3 07:32
PROVIDERS: ATTEND Specialist
DX: M47.26 Other spondylosis with radiculopathy, lumbar region (principal); Z79.890 Hormone replacement therapy; Z87.891 Personal history of nicotine dependence; M46.1 Sacroiliitis, not elsewhere classified; E03.9 Hypothyroidism, unspecified; M19.90 Unspecified osteoarthritis, unspecified site; Z88.0 Allergy status to penicillin; Z88.7 Allergy status to serum and vaccine
CPT/HCPCS: 99211

== ENCOUNTER → 2022-05-24 | Outpatient (CLI) | payer MEDICARE, OTHER ==
[2022-05-24 11:20] LABS: Basophils # (A) 0.07 X 10*3/uL (0.00-0.10); Basophils % (A) 1.3 %; Eosinophils # (A) 0.11 X 10*3/uL (0.04-0.35); HGB 16.7 g/dL (13.0-17.0); Immature Grans, Automated 0.2 %; Lymphocytes # (A) 1.92 X 10*3/uL (0.90-5.00); Lymphocytes % (A) 35.4 %; MCH 30.6 pg (27.0-32.0); MCHC 34.1 g/dL (32.0-37.0); MCV 89.9 fL (80.0-97.0); Monocytes # (A) 0.39 X 10*3/uL (0.20-1.00); Monocytes % (A) 7.2 %; NRBC Per 100 WBC 0 /100 WBCS (0.0-0.0); Neutrophils # (A) 2.93 X 10*3/uL (1.80-7.70); Neutrophils % (A) 53.9 %; Platelet Count 178 X 10*3/uL (140-440); RBC 5.45 X 10*6/uL (4.40-5.60); RDW 12.1 % (11.5-14.5); WBC 5.43 X 10*3/uL (4.50-10.00)
[2022-05-24 11:43] LABS: ALT 45 U/L (10-49); AST 37 U/L (14-35); African American GFR (CKD) 76.2 (60.0-200.0); Albumin 4.4 g/dL (3.8-4.9); Albumin/Globulin Ratio 1.52 (1.60-3.17); Alkaline Phosphatase 75 U/L (41-126); BUN/Creat Ratio 11.53 Ratio (12.00-20.00); Blood Urea Nitrogen 13.6 mg/dL (9.0-27.0); Carbon Dioxide 26.7 mmol/L (20.0-27.5); Chloride 103 mmol/L (96-109); Chol/HDL Ratio 4.76 Ratio; Globulin 2.9 g/dL (1.6-3.3); Glucose 92 mg/dL (70-110); LDL Cholesterol,Calculated 138.4 mg/dL (0.0-131.0); Non-African American GFR(CKD) 65.7 (60.0-200.0); Potassium 4.9 mmol/L (3.5-5.5); Sodium 136 mmol/L (135-145); Total Protein 7.4 g/dL (6.2-8.2)
== END | disposition home or self-care (01) ==
LOC: LABWHC1 07:11
PROVIDERS: ATTEND Internal Medicine Critical Care Medicine
DX: Z00.00 Encounter for general adult medical examination without abnormal findings (principal); I10 Essential (primary) hypertension; E78.5 Hyperlipidemia, unspecified; N40.0 Benign prostatic hyperplasia without lower urinary tract symptoms
CPT/HCPCS: 36415; 80053; 80061; 82306; 83036; 84153; 84439; 84443; 85025

== ENCOUNTER → 2022-11-23 | Outpatient (CLI) | payer MEDICARE, OTHER ==
--- NOTE | 2022-11-23 08:19 | US ---
EXAMINATION TYPE: US abdomen complete DATE OF EXAM: 11/23/2022 COMPARISON: NONE CLINICAL INDICATION: Male, 62 years old with history of R10.13 EPIGASTRIC PAIN; Pain x a couple days. Hx cholecystectomy in 2016. TECHNIQUE: Multiple sonographic images of the abdomen are obtained. FINDINGS: EXAM MEASUREMENTS: Liver Length: 15.5 cm Gallbladder Wall: Surgically absent. CBD: Obscured. Spleen: 12.5 cm Right Kidney: 12.9 x 5.5 x 6.6 cm Left Kidney: 11.9 x 5.9 x 5.8 cm STEELWORKER NOTES: Very limited due to gas and patient body habitus. Pancreas: Obscured Liver: Limited. Very coarse/heterogeneous with increased echogenicity. Gallbladder: Surgically absent. Evidence for sonographic Sorensen's sign: No CBD: Obscured Spleen: Appears wnl Right Kidney: Appears enlarged. Anechoic area seen lower pole: 1.0 x 1.4 x 1.2 cm. Left Kidney: No hydronephrosis or masses seen Upper IVC: Slightly limited. Abd Aorta: Only distal segment was seen. Limited. IMPRESSION: 1. Hepatic steatosis. 2. Simple cyst right kidney.
== END | disposition home or self-care (01) ==
LOC: RADUSWWP 06:49
PROVIDERS: ATTEND Internal Medicine Gastroenterology
DX: K76.0 Fatty (change of) liver, not elsewhere classified (principal); R10.13 Epigastric pain; N28.1 Cyst of kidney, acquired; Z90.49 Acquired absence of other specified parts of digestive tract
CPT/HCPCS: 76700

== ENCOUNTER 2022-11-29 13:07 | Observation (INO) | payer MEDICARE, OTHER ==
--- NOTE | 2022-11-29 13:44 | XR ---
EXAMINATION TYPE: XR chest 2V DATE OF EXAM: 11/29/2022 COMPARISON: 06/08/2016 INDICATION: Chest pain TECHNIQUE: Frontal and lateral views of the chest are obtained. FINDINGS: The heart size is normal. The pulmonary vasculature is normal. The lungs are clear. IMPRESSION: 1. No acute pulmonary process.
[2022-11-29 13:46] LABS: Basophils # (A) 0.1 k/uL (0-0.2); Basophils % (A) 1 %; Eosinophils # (A) 0.1 k/uL (0-0.7); Eosinophils % (A) 1 %; HCT 45.3 % (39.0-53.0); HGB 15.9 gm/dL (13.0-17.5); Lymphocytes # (A) 1.9 k/uL (1.0-4.8); Lymphocytes % (A) 25 %; MCH 31.9 pg (25.0-35.0); MCHC 35.1 g/dL (31.0-37.0); MCV 90.9 fL (80.0-100.0); Mean Platelet Volume 7.7; Monocytes # (A) 0.4 k/uL (0-1.0); Monocytes % (A) 5 %; Neutrophils % (A) 67 %; Platelet Count 220 k/uL (150-450); RBC 4.98 m/uL (4.30-5.90); WBC 7.5 k/uL (3.8-10.6)
[2022-11-29 13:49] LABS: ALT 33 U/L (4-49); AST 31 U/L (17-59); African American GFR (CKD) >90 (>60 ml/min/1.73 sqM); Albumin 3.9 g/dL (3.5-5.0); Alkaline Phosphatase 57 U/L (38-126); Anion Gap 9 mmol/L; Blood Urea Nitrogen 16 mg/dL (9-20); Calcium 9.4 mg/dL (8.4-10.2); Carbon Dioxide 25 mmol/L (22-30); Chloride 103 mmol/L (98-107); Glucose 112 mg/dL (74-99); Lipase 254 U/L (23-300); Magnesium 2.1 mg/dL (1.6-2.3); Non-African American GFR(CKD) 86 (>60 ml/min/1.73 sqM); Potassium 4.2 mmol/L (3.5-5.1); Sodium 137 mmol/L (137-145)
[2022-11-29 13:50] LABS: Partial Thromboplastin Time 23.9 sec (22.0-30.0); Prothrombin Time 11.2 sec (10.0-12.5)
[2022-11-29] MEDS ORDERED: NITROGLYCERIN SL TABS 0.4 MG TAB SUBLINGUAL PRN (14:06)
[2022-11-29] MEDS ORDERED: HEPARIN SODIUM 1,000 UN/ML (10ML VL) IV ONE (14:06)
--- NOTE | 2022-11-29 14:06 | ED ---
General Adult HPI - General Chief complaint: Chest Pain Stated complaint: Chest pains Time Seen by Provider: 11/29/22 13:09 Source: patient, RN notes reviewed, old records reviewed Mode of arrival: ambulatory Limitations: no limitations - History of Present Illness Initial comments: 62-year-old male presents for evaluation of lower chest pain, indigestion, and abnormal CT angiography of the coronary arteries which she received as an outpatient. Patient had CT angiography of the coronary arteries this morning and had been contacted by his food aide Dr. Knight with concern for coronary artery disease. He was instructed to present to the emergency department. He's had ongoing exertional lower chest discomfort which she attributed to indigestio n over the past several months. Symptoms are minimal at the time my evaluation. - Related Data Home Medications Medication Instructions Recorded Confirmed Ergocalciferol [Vitamin D2] 50,000 unit PO HOFFMAN 06/08/16 05/04/22 Levothyroxine Sodium [Synthroid] 125 mcg PO DAILY 06/08/16 05/04/22 Pantoprazole [Protonix] 40 mg PO W/SUPPER 09/15/21 05/04/22 methocarbamoL [Methocarbamol] 750 mg PO DAILY PRN 09/15/21 05/04/22 Allergies Allergy/AdvReac Type Severity Reaction Status Date / Time Penicillins Allergy Anaphylaxis Verified 11/29/22 13:22 NF-INJECTIONS AdvReac Severe Anaphylaxis Uncoded 11/29/22 13:22 Review of Systems ROS Statement: Those systems with pertinent positive or pertinent negative responses have been documented in the HPI. ROS Other: All systems not noted in ROS Statement are negative. Past Medical History Past Medical History: GERD/Reflux, Osteoarthritis (OA), Sleep Apnea/CPAP/BIPAP, Thyroid Disorder Additional Past Medical History / Comment(s): SLEEP APNEA (NO MACHINE), HX SHINGLES. hiatal hernia, COVID 09/01/21, "boarderline cholesterol", History of Any Multi-Drug Resistant Organisms: None Reported Past Surgical History: Back Surgery, Cholecystectomy, Joint Replacement, Orthopedic Surgery Additional Past Surgical History / Comment(s): COLONOSCOPY, RIGHT CARP TUNNEL RELEASE, rt knee replacement x 3, BACK SURGERY x 2(disectomy 05/2021), RT SHOULDER SX Past Anesthesia/Blood Transfusion Reactions: Family History of Problems w/ Anesthesia Additional Past Anesthesia/Blood Transfusion Reaction / Comment(s): PT PASSES OUT WITH ALL INJECTIONS-UNSURE WHY.(IV's OK),MOTHER -PONV Past Psychological History: No Psychological Hx Reported Smoking Status: Former smoker - Past Family History Brother(s) Family Medical History: Deep Vein Thrombosis (DVT), Myocardial Infarction ([place]) Father Family Medical History: Cancer General Exam Limitations: no limitations General appearance: alert, in no apparent distress Head exam: Present: atraumatic, normocephalic Eye exam: Present: normal appearance, PERRL ENT exam: Present: normal exam Neck exam: Present: normal inspection. Absent: tenderness, meningismus Respiratory exam: Present: normal lung sounds bilaterally, respiratory distress Cardiovascular Exam: Present: regular rate, normal rhythm GI/Abdominal exam: Present: soft. Absent: distended, tenderness, guarding Extremities exam: Present: normal inspection, normal capillary refill. Absent: pedal edema Neurological exam: Present: alert, oriented X3, CN II-XII intact. Absent: motor sensory deficit Psychiatric exam: Present: normal affect, normal mood Skin exam: Present: warm, dry, intact Course Vital Signs 11/29/22 13:22 Temperature 98.3 F Pulse Rate 63 Respiratory 16 Rate Blood Pressure 146/97 O2 Sat by Pulse 97 Oximetry Medical Decision Making - Medical Decision Making Was pt. sent in by a medical professional or institution (, PA, CLAIMS COLLECTOR, urgent care, hospital, or group home...) When possible be specific @ -Sent in by his food aide Dr. Knight Did you speak to anyone other than the patient for history (EMS, parent, family, police, friend...)? What history was obtained from this source @ -No Did you review nursing and triage notes (agree or disagree)? Why? @ -I reviewed and agree with nursing and triage notes Were old charts reviewed (outside hosp., previous admission, EMS record, old EKG, old radiological studies, urgent care reports/EKG's, group home records)? Report findings @ -No old charts were reviewed Differential Diagnosis (chest pain, altered mental status, abdominal pain women, abdominal pain men, vaginal bleeding, weakness, fever, dyspnea, syncope, headache, dizziness, GI bleed, back pain, seizure, CVA, palpatations, mental health, musculoskeletal)? @ Differential Chest Pain: Stable Angina, Unstable Angina, STEMI, NSTEMI Aortic Dissection, Pneumothorax, Musculoskeletal, Esophageal Spasm GERD, Cholecystitis, Pancreatitis, Zoster, this is not meant to be an all-inclusive list. EKG interpreted by me (3pts min.). @ EKG: Sinus bradycardia rate of 58, MT interval 161, QRS duration 91, QTC [address] segment elevation.] X-rays interpreted by me (1pt min.). @ -No acute cardio pulmonary findings CT interpreted by me (1pt min.). @ -None done U/S interpreted by me (1pt. min.). @ -None done What testing was considered but not performed or refused? (CT, X-rays, U/S, labs)? Why? @ -None What meds were considered but not given or refused? Why? @ -None Did you discuss the management of the patient with other professionals (professionals i.e. , PA, CLAIMS COLLECTOR, lab, RT, psych nurse, community mental health social worker, supply controller, teacher, learning officer, case assistant)? Give summary @ -Case discussed with [facility] and Dr. Knight, spoke with Dr. Howell who is a patient's primary care provider and recommends admission to [facility] Was smoking cessation discussed for >3mins.? @ -No Was critical care preformed (if so, how long)? @ -[Yes, 35 minutes Were there social determinants of health that impacted care today? How? (Homelessness, low income, unemployed, alcoholism, drug addiction, transportation, low edu. Level, literacy, decrease access to med. care, detention, rehab)? @ -No Was there de-escalation of care discussed even if they declined (Discuss DNR or withdrawal of care, Hospice)? DNR status @ -No What co-morbidities impacted this encounter? (DM, HTN, Smoking, COPD, CAD, Cancer, CVA, ARF, Chemo, Hep., AIDS, mental health diagnosis, sleep apnea, morbid obesity)? @ -None Was patient admitted / discharged? Hospital course, mention meds given and route, prescriptions, significant lab abnormalities, going to OR and other pertinent info. @ -[62-year-old male with exertional lower chest pain and outpatient CT angiography of the coronary arteries with concern for CAD. Patient's initial troponin is negative. He has a stable hemoglobin. Normal labs otherwise. He will be admitted for unstable angina with cardiology on consult who is aware. Undiagnosed new problem with uncertain prognosis? @ -No Drug Therapy requiring intensive monitoring for toxicity (Heparin, Nitro, Insulin, Cardizem)? @ -No Were any procedures done? @ -No Diagnosis/symptom? @ Unstable angina Acute, or Chronic, or Acute on Chronic? @ -Acute Uncomplicated (without systemic symptoms) or Complicated (systemic symptoms)? @ -default Side effects of treatment? @ -No Exacerbation, Progression, or Severe Exacerbation? @ -No Poses a threat to life or bodily function? How? (Chest pain, [place], [place], pneumonia, PE, COPD, DKA, ARF, appy, cholecystitis, CVA, Diverticulitis, Homicidal, Suicidal, threat to staff... and all critical care pts) @ Yes, ACS - Lab Data Result diagrams: 11/29/22 13:23 11/29/22 13:23 Lab Results 11/29/22 11/29/22 11/29/22 Range/Units 13:23 13:23 13:23 WBC 7.5 (3.8-10.6) k/uL RBC 4.98 (4.30-5.90) m/uL Hgb 15.9 (13.0-17.5) gm/dL Hct 45.3 (39.0-53.0) % MCV 90.9 (80.0-100.0) fL MCH 31.9 (25.0-35.0) pg MCHC 35.1 (31.0-37.0) g/dL RDW 12.0 (11.5-15.5) % Plt Count 220 (150-450) k/uL MPV 7.7 Neutrophils % 67 % Lymphocytes % 25 % Monocytes % 5 % Eosinophils % 1 % Basophils % 1 % Neutrophils # 5.0 (1.3-7.7) k/uL Lymphocytes # 1.9 (1.0-4.8) k/uL Monocytes # 0.4 (0-1.0) k/uL Eosinophils # 0.1 (0-0.7) k/uL Basophils # 0.1 (0-0.2) k/uL PT 11.2 (10.0-12.5) sec INR 1.0 (<1.2) APTT 23.9 (22.0-30.0) sec Sodium 137 (137-145) mmol/L Potassium 4.2 (3.5-5.1) mmol/L Chloride 103 (98-107) mmol/L Carbon Dioxide 25 (22-30) mmol/L Anion Gap 9 mmol/L BUN 16 (9-20) mg/dL Creatinine 0.95 (0.66-1.25) mg/dL Est GFR (CKD-EPI)AfAm >90 (>60 ml/min/1.73 sqM) Est GFR (CKD-EPI)NonAf 86 (>60 ml/min/1.73 sqM) Glucose 112 H (74-99) mg/dL Calcium 9.4 (8.4-10.2) mg/dL Magnesium 2.1 (1.6-2.3) mg/dL Total Bilirubin 1.0 (0.2-1.3) mg/dL AST 31 (17-59) U/L ALT 33 (4-49) U/L Alkaline Phosphatase 57 (38-126) U/L Troponin I (0.000-0.034) ng/mL Total Protein 7.0 (6.3-8.2) g/dL Albumin 3.9 (3.5-5.0) g/dL Lipase 254 (23-300) U/L 11/29/22 Range/Units 13:23 WBC (3.8-10.6) k/uL RBC (4.30-5.90) m/uL Hgb (13.0-17.5) gm/dL Hct (39.0-53.0) % MCV (80.0-100.0) fL MCH (25.0-35.0) pg MCHC (31.0-37.0) g/dL RDW (11.5-15.5) % Plt Count (150-450) k/uL MPV Neutrophils % % Lymphocytes % % Monocytes % % Eosinophils % % Basophils % % Neutrophils # (1.3-7.7) k/uL Lymphocytes # (1.0-4.8) k/uL Monocytes # (0-1.0) k/uL Eosinophils # (0-0.7) k/uL Basophils # (0-0.2) k/uL PT (10.0-12.5) sec INR (<1.2) APTT (22.0-30.0) sec Sodium (137-145) mmol/L Potassium (3.5-5.1) mmol/L Chloride (98-107) mmol/L Carbon Dioxide (22-30) mmol/L Anion Gap mmol/L BUN (9-20) mg/dL Creatinine (0.66-1.25) mg/dL Est GFR (CKD-EPI)AfAm (>60 ml/min/1.73 sqM) Est GFR (CKD-EPI)NonAf (>60 ml/min/1.73 sqM) Glucose (74-99) mg/dL Calcium (8.4-10.2) mg/dL Magnesium (1.6-2.3) mg/dL Total Bilirubin (0.2-1.3) mg/dL AST (17-59) U/L ALT (4-49) U/L Alkaline Phosphatase (38-126) U/L Troponin I <0.012 (0.000-0.034) ng/mL Total Protein (6.3-8.2) g/dL Albumin (3.5-5.0) g/dL Lipase (23-300) U/L Critical Care Time Critical Care Time: Yes Total Critical Care Time: 35 Disposition Clinical Impression: Unstable angina pectoris Disposition: ADMITTED IP TO THIS [facility] Condition: Stable Is patient prescribed a controlled substance at d/c from ED?: No Referrals: Simone Howell DO [Primary Care Provider] - 1-2 days Time of Disposition: 14:09
[2022-11-29] MEDS ORDERED: HEPARIN SOD,PORK IN 0.45% NACL 25,000 UNIT in 0.45% NACL 1 250ML.BAG IV SCH (14:15)
[2022-11-29] MEDS ORDERED: CALCIUM CARBONATE 500 MG CHEWABLE PO PRN (16:11)
--- NOTE | 2022-11-29 16:13 | P.HPIM ---
History of Present Illness H&P Date: 11/29/22 Patient is a 62-year-old male with history of hypothyroidism, GERD presented with recurrent chest pain. He claims that has been going on for a few months. He has been evaluated both by cardiology and GI. He had a coronary CT done today which showed right coronary lesion. He has been having worsening chest pain or the last few days even at rest. Currently chest pain-free. He denies any shortness of breath, palpitations, abdominal pain, nausea, vomiting, urinary or bowel complaints. He denies any sick contacts or travel history. In the ED, temperature was 98.3, pulse 63, respiratory rate 16, blood pressure 146/97, saturating at 97% on room air. Laboratory analysis shows normal CBC, normal BMP, troponin negative. Chest x-ray independently interpreted, shows no acute process. EKG independently interpreted, shows T-wave inversions in the 3 and aVF, and sinus bradycardia. Patient admitted for unstable angina. Cardiology consulted. Pertinent positives and negatives as discussed in HPI, a complete review of systems was performed and all other systems are negative. Patient seen and examined at bedside. Vital signs reviewed General: nontoxic, no distress, appears at stated age Derm: warm, dry Head: atraumatic, normocephalic, symmetric Eyes: EOMI, no lid lag, anicteric sclera, pupils equal round reactive to light ENT: Nose and ears atraumatic Neck: No thyromegaly, supple Mouth: no lip lesion, mucus membranes moist Cardiovascular: S1S2 reg, no murmur, no edema Lungs: clear to auscultation bilateral, no rhonchi, no rales, no wheeze, no accessory muscle use Abdominal: soft, nontender to palpation, no guarding, no appreciable organomegaly Ext: no gross muscle atrophy, muscle strength muscle strength 5 out of 5 in all 4 extremities, no contractures Neuro: CN II-XII grossly intact Psych: Alert, oriented, appropriate affect Assessment/Plan: Unstable angina Sinus bradycardia GERD Hypothyroidism -Heparin drip, monitor for any acute bleeding -Aspirin and statin -trend troponin -Telemetry -Echocardiogram ordered -Cardiology consulted -Continue home medications -A1c, lipid panel, TSH pending The patient is admitted with an anticipated less than 2 midnight stay as observation status for evaluation of chest pain. Surrogate decision-maker: CODE STATUS: Full code DVT prophylaxis: Heparin drip Anticipated discharge date: Pending clinical course Anticipated discharge place: Pending clinical course A total of 55 minutes was spent on the care of this complex patient more than 50% of the time was spent in counseling and care coordination. Past Medical History Past Medical History: GERD/Reflux, Osteoarthritis (OA), Sleep Apnea/CPAP/BIPAP, Thyroid Disorder Additional Past Medical History / Comment(s): SLEEP APNEA (NO MACHINE), HX SHINGLES. hiatal hernia, COVID 09/01/21, "boarderline cholesterol", History of Any Multi-Drug Resistant Organisms: None Reported Past Surgical History: Back Surgery, Cholecystectomy, Joint Replacement, Orthopedic Surgery Additional Past Surgical History / Comment(s): COLONOSCOPY, RIGHT CARP TUNNEL RELEASE, rt knee replacement x 3, BACK SURGERY x 2(disectomy 05/2021), RT SHOULDER SX Past Anesthesia/Blood Transfusion Reactions: Family History of Problems w/ Anesthesia Additional Past Anesthesia/Blood Transfusion Reaction / Comment(s): PT PASSES OUT WITH ALL INJECTIONS-UNSURE WHY.(IV's OK),MOTHER -PONV Past Psychological History: No Psychological Hx Reported Smoking Status: Former smoker - Past Family History Brother(s) Family Medical History: Deep Vein Thrombosis (DVT), Myocardial Infarction ([place]) Father Family Medical History: Cancer Medications and Allergies Home Medications Medication Instructions Recorded Confirmed Type Ergocalciferol [Vitamin D2] 50,000 unit PO HOFFMAN 06/08/16 11/29/22 History Levothyroxine Sodium [Synthroid] 125 mcg PO DAILY 06/08/16 11/29/22 History Pantoprazole [Protonix] 40 mg PO AC-BID 09/15/21 11/29/22 History methocarbamoL [Methocarbamol] 750 mg PO TID PRN 09/15/21 11/29/22 History Calcium Carbonate [Tums] 1,000 mg PO ACHS PRN 11/29/22 11/29/22 History Allergies Allergy/AdvReac Type Severity Reaction Status Date / Time Penicillins Allergy Severe Anaphylaxis Verified 11/29/22 15:35 NF-INJECTIONS AdvReac Severe Anaphylaxis Uncoded 11/29/22 15:35 Physical Exam Vitals: Vital Signs Temp Pulse Resp BP Pulse Ox 11/29/22 13:22 98.3 F 63 16 146/97 97 Intake and Output 1011/29/22 11/29/22 06:59 14:59 22:59 Other: Weight 103.419 kg Results CBC & Chem 7: 11/29/22 13:23 11/29/22 13:23 Labs: Abnormal Lab Results - Last 24 Hours (Table) 11/29/22 Range/Units 13:23 Glucose 112 H (74-99) mg/dL
[2022-11-29] MEDS: PANTOPRAZOLE 40 MG TABLET PO SCH (17:02)
[2022-11-29] MEDS: ATORVASTATIN 40 MG TAB PO SCH ×2 (20:30→20:32)
[2022-11-29] MEDS ORDERED: HEPARIN SODIUM 1,000 UN/ML (10ML VL) IV PRN (21:59)
[2022-11-30 04:42] LABS: Mean Platelet Volume 7.3; Platelet Count 197 k/uL (150-450)
[2022-11-30] MEDS: PANTOPRAZOLE 40 MG TABLET PO SCH ×2 (06:02→17:14)
[2022-11-30] MEDS: LEVOTHYROXINE 125 MCG TAB PO SCH (06:02)
[2022-11-30] MEDS ORDERED: HEPARIN SODIUM,PORCINE (1 ML) 2,500 UNIT in SODIUM CHLORIDE 0.9% 250 ML IRRIGATION PRN (07:00)
[2022-11-30] MEDS ORDERED: HEPARIN SODIUM,PORCINE 10,000 UNIT in SODIUM CHLORIDE 0.9% 1,000 ML IRRIGATION PRN (07:00)
[2022-11-30] MEDS ORDERED: ALPRAZolam 0.5 MG TAB PO PRN (08:00)
[2022-11-30] MEDS ORDERED: ATORVASTATIN 80 MG TAB PO STA (08:00)
[2022-11-30] MEDS ORDERED: ASPIRIN 325 MG TAB PO STA (08:00)
[2022-11-30] MEDS ORDERED: ALPRAZolam 0.25 MG TAB PO PRN (08:00)
[2022-11-30] MEDS ORDERED: NITROGLYCERIN SL TABS 0.4 MG TAB SUBLINGUAL PRN (08:00)
[2022-11-30] MEDS: SODIUM CHLORIDE 0.9% 1,000 ML in EMPTY BAG 1 BAG IV SCH (08:21)
--- NOTE | 2022-11-30 09:48 | P.CRDCN ---
History of Present Illness Consult date: 11/30/22 Consult reason: chest pain History of present illness: History of present illness: This is a 62-year-old male patient of Dr. Leana Knight, with past medical history of dyslipidemia, family history of premature coronary artery disease, history of tobacco use. Patient has had difficulty with indigestion type chest pain and heartburn status post GI workup followed by a stress test regular treadmill stress test was inconclusive in August of this year. Patient subsequently underwent a stress Cardiolite that did not reveal any significant areas of is chemia. Patient was seen at the pain clinic and was sent to see Dr. Leana Knight regarding frequent PVCs prior to a pain procedure which ended up being canceled. PVCs were not causing any symptoms. Then a CT angiogram of his coronary arteries was ordered and patient went to [facility] yesterday have this done. He was having frequent PVCs including trigeminy according to the patient's and made the study difficult. There was concern for abnormal CTA and patient was contacted by Dr. Leana Knight and told come into the hospital for further evaluation with plan for cardiac catheterization today. Patient does have active chest pain indigestion type at this time of evaluation. EKG sinus rhythm with no acute ST changes. Chest x-ray: No acute findings CBC normal. Electrolytes renal function normal. Blood sugar 112. Troponin negative 3. Liver function tests normal. Magnesium 2.1. Lipase 254. Home cardiac medications: Levothyroxine 125 g daily Lexiscan Cardiolite stress test performed 11/11/22 in the office was negative with probable normal myocardial perfusion and function. Review Of Systems: At the time of my evaluation: Constitutional: No fever, no chills. No weakness, fatigue or lethargy. EENT: No headache. No dizziness. Lungs: No shortness of breath, cough, no sputum production. No wheezing. Cardiovascular: Mild chest pain, no lower extremity edema. No palpitations. No paroxysmal nocturnal dyspnea. No orthopnea. No lightheadedness or dizziness. No syncopal episodes. Abdominal: No abdominal pain. No nausea, vomiting. No diarrhea. No constipation. No bloody or tarry stools. Musculoskeletal: No myalgias. No muscle weakness, no frequent falls. Integumentary: No wounds. No rash. No unusual bruising. Neurologic: No aphasia. No facial droop. No change in mentation. Physical examination: Gen: This is a 62-year-old male. He is resting on the bed and appears to be in no acute distress. VS: reviewed HEENT: Head is atraumatic, normocephalic. Pupils equal, round. Sclerae is anicteric. NECK: Supple. No JVD. . LUNGS: Clear to auscultation. No wheezes or rhonchi. No intercostal retractions. HEART: Regular rate and rhythm. No murmur. ABDOMEN: Soft No tenderness. EXTREMITIES: No pedal edema. No calf tenderness. NEUROLOGICAL: Patient is awake, alert and oriented x3. Assessment: Chest pain with concern for abnormal CTA of of his coronaries Dyslipidemia Family history of premature coronary artery disease History of tobacco use Plan: Patient will be scheduled for cardiac catheterization today with Dr. Leana Knight Continue patient on aspirin changed to 81 mg daily, Lipitor 40 mg at bedtime, Protonix 40 mg twice daily and levothyroxine Obtain 2-D echocardiogram and Doppler study to assess cardiac structure and function Further recommendations to follow based upon clinical course Thank you kindly for this consultation. Nurse practitioner note has been reviewed, I agree with documented findings and plan of care. Patient was seen and examined. Past Medical History Past Medical History: GERD/Reflux, Osteoarthritis (OA), Sleep Apnea/CPAP/BIPAP, Thyroid Disorder Additional Past Medical History / Comment(s): SLEEP APNEA (NO MACHINE), HX SHINGLES. hiatal hernia, COVID 09/01/21, "boarderline cholesterol", History of Any Multi-Drug Resistant Organisms: None Reported Past Surgical History: Back Surgery, Cholecystectomy, Joint Replacement, Orthopedic Surgery Additional Past Surgical History / Comment(s): COLONOSCOPY, RIGHT CARP TUNNEL RELEASE, rt knee replacement x 3, BACK SURGERY x 2(disectomy 05/2021), RT SHOULDER SX Past Anesthesia/Blood Transfusion Reactions: Family History of Problems w/ Anesthesia Additional Past Anesthesia/Blood Transfusion Reaction / Comment(s): PT PASSES OUT WITH ALL INJECTIONS-UNSURE WHY.(IV's OK),MOTHER -PONV Past Psychological History: No Psychological Hx Reported Smoking Status: Former smoker Past Alcohol Use History: Occasional Additional Past Alcohol Use History / Comment(s): QUIT SMOKING 1985, SMOKED 1 PPD, STARTED SMOKING AGE 16 Past Drug Use History: None Reported - Past Family History Brother(s) Family Medical History: Deep Vein Thrombosis (DVT), Myocardial Infarction ([place]) Father Family Medical History: Cancer Medications and Allergies Home Medications Medication Instructions Recorded Confirmed Type Ergocalciferol [Vitamin D2] 50,000 unit PO HOFFMAN 06/08/16 11/29/22 History Levothyroxine Sodium [Synthroid] 125 mcg PO DAILY 06/08/16 11/29/22 History Pantoprazole [Protonix] 40 mg PO AC-BID 09/15/21 11/29/22 History methocarbamoL [Methocarbamol] 750 mg PO TID PRN 09/15/21 11/29/22 History Calcium Carbonate [Tums] 1,000 mg PO ACHS PRN 11/29/22 11/29/22 History Allergies Allergy/AdvReac Type Severity Reaction Status Date / Time Penicillins Allergy Severe Anaphylaxis Verified 11/29/22 15:35 NF-INJECTIONS AdvReac Severe Anaphylaxis Uncoded 11/29/22 15:35 Physical Exam Vitals: Vital Signs Temp Pulse Pulse Resp BP BP Pulse Ox 11/30/22 07:00 97.8 F 59 L 18 144/88 98 11/30/22 03:53 97.6 F 51 L 16 118/72 98 11/29/22 21:54 97.5 F L 59 L 16 152/87 97 11/29/22 17:09 63 18 136/94 100 11/29/22 17:00 64 18 136/89 99 11/29/22 16:30 57 L 18 142/89 97 11/29/22 16:00 53 L 18 123/82 97 11/29/22 15:30 57 L 18 129/84 98 11/29/22 13:22 98.3 F 63 16 146/97 97 Intake and Output 11/29/22 11/30/22 11/30/22 22:59 06:59 14:59 Intake Total 67.333 103.181 Balance 67.333 103.181 Intake: Intake, IV Titration 67.333 103.181 Amount Heparin Sod,Pork in 0.45% 67.333 103.181 NaCl 25,000 unit In 0.45 % NaCl 1 250ml.bag @ 9. 669 UNITS/KG/HR 10 mls/hr IV .Q24H [facility] Rx#: [id number] Oral 0 Other: Voiding Method Toilet # Voids 2 Weight 103.419 kg Results 11/30/22 04:30 11/29/22 13:23 Cardiac Enzymes 11/29/22 11/29/22 11/29/22 Range/Units 13:23 13:23 15:35 AST 31 (17-59) U/L Troponin I <0.012 <0.012 (0.000-0.034) ng/mL 11/29/22 Range/Units 18:22 AST (17-59) U/L Troponin I <0.012 (0.000-0.034) ng/mL Coagulation 11/29/22 11/29/22 11/29/22 Range/Units 13:23 15:35 20:17 PT 11.2 (10.0-12.5) sec APTT 23.9 63.5 H 40.6 H (22.0-30.0) sec 11/30/22 Range/Units 04:30 PT (10.0-12.5) sec APTT 67.9 H (22.0-30.0) sec CBC 11/29/22 11/30/22 Range/Units 13:23 04:30 WBC 7.5 (3.8-10.6) k/uL RBC 4.98 (4.30-5.90) m/uL Hgb 15.9 (13.0-17.5) gm/dL Hct 45.3 (39.0-53.0) % Plt Count 220 197 (150-450) k/uL Comprehensive Metabolic Panel 11/29/22 Range/Units 13:23 Sodium 137 (137-145) mmol/L Potassium 4.2 (3.5-5.1) mmol/L Chloride 103 (98-107) mmol/L Carbon Dioxide 25 (22-30) mmol/L BUN 16 (9-20) mg/dL Creatinine 0.95 (0.66-1.25) mg/dL Glucose 112 H (74-99) mg/dL Calcium 9.4 (8.4-10.2) mg/dL AST 31 (17-59) U/L ALT 33 (4-49) U/L Alkaline Phosphatase 57 (38-126) U/L Total Protein 7.0 (6.3-8.2) g/dL Albumin 3.9 (3.5-5.0) g/dL Current Medications Generic Name Dose Route Start Last Admin Trade Name Freq PRN Reason Stop Dose Admin Aspirin 325 mg 11/30/22 09:00 Aspirin 325 Mg Tab PO DAILY [facility] Atorvastatin Calcium 40 mg 11/29/22 21:00 11/29/22 20:32 Atorvastatin 40 Mg Tab PO Not Given HS [facility] Calcium Carbonate/Glycine 1,000 mg 11/29/22 16:11 Calcium Carbonate 500 Mg Chewable PO ACHS PRN GI Upset Ergocalciferol 1,250 mcg 12/04/22 09:00 Ergocalciferol 1,250 Mcg (50,000 Iu) Capsule PO HOFFMAN [facility] Levothyroxine Sodium 125 mcg 11/30/22 06:30 11/30/22 06:02 Levothyroxine 125 Mcg Tab PO 125 mcg 0630 PEARL Administration Nitroglycerin 0.4 mg 11/29/22 14:06 Nitroglycerin Sl Tabs 0.4 Mg Tab SUBLINGUAL Q5M PRN Chest Pain Pantoprazole Sodium 40 mg 11/29/22 17:30 11/30/22 06:02 Pantoprazole 40 Mg Tablet PO 40 mg AC-BID PEARL Administration Intake and Output 11/29/22 11/30/22 11/30/22 22:59 06:59 14:59 Intake Total 67.333 103.181 Balance 67.333 103.181 Intake: Intake, IV Titration 67.333 103.181 Amount Heparin Sod,Pork in 0.45% 67.333 103.181 NaCl 25,000 unit In 0.45 % NaCl 1 250ml.bag @ 9. 669 UNITS/KG/HR 10 mls/hr IV .Q24H [facility] Rx#: [id number] Oral 0 Other: Voiding Method Toilet # Voids 2 Weight 103.419 kg 11/30/22 04:30 11/29/22 13:23
--- NOTE | 2022-11-30 10:15 | CA ---
Transthoracic Echo Report Name: Tyshawn Bradley Age: 62 Gender: M : 1960 Exam Date: 11/29/2022 16:37 Exam Location: [place] [facility] Ht (in): 73 Wt (lb): 228 Ordering Physician: Darci Aguiar MD Attending/Referring Phys: Color Print Inspector Karen Moore RDCS Procedure CPT: Indications: angina Cardiac Hx: Technical Quality: Good Contrast 1: Total Dose (mL): Contrast 2: Total Dose (mL): MEASUREMENTS (Male / Female) Normal Values 2D ECHO LV Diastolic Diameter PLAX 4.8 cm 4.2 - 5.9 / 3.9 - 5.3 cm LV Systolic Diameter PLAX 3.3 cm IVS Diastolic Thickness 1.2 cm 0.6 - 1.0 / 0.6 - 0.9 cm LVPW Diastolic Thickness 1.2 cm 0.6 - 1.0 / 0.6 - 0.9 cm LV Relative Wall Thickness 0.5 RV Internal Dim ED PLAX 4.4 cm LA Systolic Diameter LX 3.3 cm 3.0 - 4.0 / 2.7 - 3.8 cm LV Diastolic Volume MOD 4C 116.5 cm??? LV Systolic Volume MOD 4C 66.5 cm??? LV Ejection Fraction MOD 4C 42.9 % LV Cardiac Index MOD 4C 1115.8 cm???/min???m??? LV Diastolic Length 4C 9.1 cm LV Systolic Length 4C 7.2 cm LV Diastolic Volume MOD 2C 90.8 cm??? LV Systolic Volume MOD 2C 34.3 cm??? LV Ejection Fraction MOD 2C 62.2 % LV Cardiac Index MOD 2C 1260.1 cm???/min???m??? LV Diastolic Length 2C 8.9 cm LV Systolic Length 2C 7.1 cm LA Volume 56.1 cm??? 18 - 58 / 22 - 52 cm??? LA Volume Index 24.1 cm???/m??? 16 - 28 cm???/m??? M-MODE Aortic Root Diameter MM 3.6 cm MV E Point Septal Separation 0.7 cm AV Cusp Separation MM 2.3 cm DOPPLER AV Peak Velocity 124.1 cm/s AV Peak Gradient 6.2 mmHg MV Area PHT 3.0 cm??? Mitral E Point Velocity 82.7 cm/s Mitral A Point Velocity 61.5 cm/s Mitral E to A Ratio 1.3 MV Deceleration Time 252.4 ms MV E' Velocity 7.3 cm/s Mitral E to MV E' Ratio 11.3 TR Peak Velocity 263.3 cm/s TR Peak Gradient 27.7 mmHg Right Ventricular Systolic Press 32.6 mmHg FINDINGS Left Ventricle Left ventricular ejection fraction is estimated at 55-60 %. Left ventricular cavity size normal. Mildly increased septal wall thickness. Right Ventricle Severe right ventricular dilatation. Right ventricular systolic pressure within normal limits. Right ventricular systolic pressure estimated at 33 mm hg. Right Atrium Normal right atrial size. Left Atrium Normal left atrial size. Mitral Valve Structurally normal mitral valve. Trace mitral regurgitation. Aortic Valve Trileaflet aortic valve. No aortic valve stenosis or regurgitation. Tricuspid Valve Structurally normal tricuspid valve. Mild tricuspid regurgitation. Pulmonic Valve Structurally normal pulmonic valve. Mild pulmonic regurgitation. Pericardium No pericardial effusion. Aorta Normal size aortic root and proximal ascending aorta. CONCLUSIONS LVH with preserved systolic function Right ventricular enlargement Previewed by: Dr. Norbert Prieto MD (Electronically Signed) Final Date: 30 November 2022 10:14
[2022-11-30 11:20] LABS: Chol/HDL Ratio 4.77 Ratio; LDL Cholesterol,Calculated 110.9 mg/dL (0.0-131.0)
[2022-11-30] MEDS ORDERED: fentaNYL (PF) 50 MCG/ML 2 ML AMP ONE (12:24)
[2022-11-30] MEDS ORDERED: LIDOCAINE 1% INJ 10MG/ML (5 ML VIAL-PF) SQ ONE (12:33)
[2022-11-30] MEDS ORDERED: HEPARIN SODIUM 1,000 UN/ML (10ML VL) ONE (12:38)
[2022-11-30] MEDS ORDERED: MIDAZOLAM 2 MG/2 ML VIAL IVP ONE ×2 (12:39→13:06)
[2022-11-30] MEDS ORDERED: fentaNYL (PF) 50 MCG/1 ML VIAL IVP ONE (12:39)
[2022-11-30] MEDS ORDERED: VERAPAMIL SYRINGE (5 MG/10 ML) INTRAARTER ONE ×2 (12:39→13:03)
[2022-11-30] MEDS ORDERED: IV FLUID CONTINUATION 1,000 ML IV ONE (12:40)
[2022-11-30] MEDS: HEPARIN SODIUM 1,000 UN/ML (10ML VL) IV ONE ×2 (12:40→13:11)
[2022-11-30] MEDS ORDERED: TICAGRELOR 90 MG TAB ONE (13:00)
[2022-11-30] MEDS ORDERED: TICAGRELOR 90 MG TAB PO ONE (13:04)
[2022-11-30] MEDS ORDERED: HEPARIN SODIUM 1,000 UN/ML (10ML VL) IV ONE (13:04)
--- NOTE | 2022-11-30 13:10 | P.PN ---
Subjective Progress Note Date: 11/30/22 Hospital Course: Patient is a 62-year-old male with history of hypothyroidism, GERD presented with recurrent chest pain. He had a coronary CT done which showed right coronary lesion. In the ED, temperature was 98.3, pulse 63, respiratory rate 16, blood pressure 146/97, saturating at 97% on room air. Laboratory analysis shows normal CBC, normal BMP, troponin negative. Chest x-ray independently interpreted, shows no acute process. EKG independently interpreted, shows T- wave inversions in the 3 and aVF, and sinus bradycardia. Patient admitted for unstable angina. Cardiology consulted. Currently on heparin drip. Pending cardiac cath. Subjective: Patient seen and examined at bedside. No acute events overnight. Still having intermittent chest pain. Pertinent positives and negatives as discussed above, a complete review of systems was performed and all other systems are negative. Vitals Signs Reviewed. General: nontoxic, no distress, appears at stated age Derm: warm, dry Head: atraumatic, normocephalic, symmetric Eyes: EOMI, no lid lag, anicteric sclera Mouth: no lip lesion, mucus membranes moist Cardiovascular: S1S2 reg, no murmur Lungs: CTA bilateral, no rhonchi, no rales , no accessory muscle use Abdominal: soft, nontender to palpation, no guarding, no appreciable organomegaly Ext: no gross muscle atrophy, no edema, no contractures Neuro: CN II-XI grossly intact, no focal neuro deficits Psych: Alert, oriented, appropriate affect Data Reviewed Today: Pertinent Labs: Platelets 197, APTT 67.9, A1c 5.1, triglycerides 216, total cholesterol 195, LDL 110, TSH 2.85 Imaging: Echocardiogram report reviewed shows LVH with preserved systolic function, right ventricular enlargement Assessment and Plan: Unstable angina Sinus bradycardia GERD Hypothyroidism -Heparin drip, monitor for any acute bleeding -Aspirin and statin -Troponin negative 3 -Telemetry -Cardiology note reviewed, indicating cardiac cath -Continue home medications DVT ppx: Heparin drip Code status: Full code Anticipated discharge place: Pending clinical course Anticipated discharge time: Pending clinical course Objective - Vital Signs Vital signs: Vital Signs Temp 97.8 F 11/30/22 07:00 Pulse 59 L 11/30/22 07:00 Resp 18 11/30/22 07:00 BP 144/88 11/30/22 07:00 Pulse Ox 98 11/30/22 07:00 FiO2 Intake & Output 11/29/22 11/30/22 11/30/22 18:59 06:59 18:59 Intake Total 170.514 Balance 170.514 Weight 103.419 kg 103.419 kg Intake: Intake, IV Titration 170.514 Amount Heparin Sod,Pork in 0.45% 170.514 NaCl 25,000 unit In 0.45 % NaCl 1 250ml.bag @ 9. 669 UNITS/KG/HR 10 mls/hr IV .Q24H [facility] Rx#: [id number] Oral 0 Other: Voiding Method Toilet # Voids 2 - Labs CBC & Chem 7: 11/30/22 04:30 11/29/22 13:23 Labs: Abnormal Lab Results - Last 24 Hours (Table) 11/29/22 11/29/22 11/29/22 Range/Units 13:23 15:35 20:17 APTT 63.5 H 40.6 H (22.0-30.0) sec Glucose 112 H (74-99) mg/dL Triglycerides (0.00-149.00) mg/dL VLDL Cholesterol, Calc (5.00-40.00) mg/dL 11/30/22 11/30/22 Range/Units 04:30 04:30 APTT 67.9 H (22.0-30.0) sec Glucose (74-99) mg/dL Triglycerides 216.00 H (0.00-149.00) mg/dL VLDL Cholesterol, Calc 43.20 H (5.00-40.00) mg/dL
[2022-11-30] MEDS ORDERED: NITROGLYCERIN 1000MCG/10ML SYRINGE INTRACORON ONE (13:23)
[2022-11-30] MEDS ORDERED: IOPAMIDOL-370 200ML BTL INJ ONE (13:30)
[2022-11-30] MEDS ORDERED: SODIUM CHLORIDE 0.9% 1,000 ML IV ONE (13:30)
--- NOTE | 2022-11-30 13:43 | CC ---
CARDIAC CATHETERIZATION REPORT INDICATION: Unstable angina. HISTORY OF PRESENT ILLNESS: This is a 62-year-old gentleman, who recently presented to me with recurrent episodes of what he described as heart burn. The patient has had prior vasovagal events. Hence, we initially opted for a CT angiogram of the chest that revealed severe stenosis involving proximal right coronary artery. Due to this, I advised him to undergo cardiac catheterization. He was admitted to hospital with unstable angina because of heart burn like symptoms that he had yesterday. PROCEDURE NOTE: After obtaining informed consent, left heart catheterization and coronary angiogram were performed via the right radial artery using standard Srinivas catheters. The patient tolerated the procedure well without any obvious immediate complications. The patient received moderate conscious sedation. Total sedation time was 18 minutes. The patient received verapamil and heparin per protocol. I obtained right radial artery access using Seldinger technique, 6-Bengali sheath was placed. Catheters and wires were floated into the ascending aorta under fluoroscopic guidance. FINDINGS: 1. HEMODYNAMICS: Left ventricular end-diastolic pressure is 24 mm. There is no significant gradient across the aortic valve. 2. LEFT VENTRICULOGRAM: Left ventriculogram is not performed. 3. ANGIOGRAPHIC DATA: a.Right coronary artery: Right coronary artery is a large dominant vessel that shows a focal 90% stenosis involving proximal RCA. b.Left main coronary artery is a short vessel and is free of stenosis. Divides into left anterior descending coronary artery and circumflex coronary artery. c.Circumflex coronary artery is a nondominant vessel and is free of significant stenosis. d. LAD shows a 40% mid LAD stenosis. CONCLUSION: 1. Focal 90% stenosis involving the right coronary artery. 2. Moderate stenosis involving mid LAD. PLAN: I have asked Dr. Huddleston, the on-call professor of apologetics to review the angiographic data and advise on angioplasty of the right coronary artery with or without an FFR of the LAD. MMODL / IJN: [id number] /
[2022-11-30] MEDS ORDERED: MAG HYDROX/AL HYDROX/SIMETH 30 ML CUP PO PRN (14:03)
[2022-11-30] MEDS ORDERED: RX INFO: IV CONTRAST WAS GIVEN 1 EACH MISC MISCELLANE PRN (14:03)
[2022-11-30] MEDS ORDERED: ZOLPIDEM 5 MG TAB PO PRN (14:03)
[2022-11-30] MEDS ORDERED: ATROPINE SULFATE 0.1 MG/ML 10ML SYRINGE IV PRN (14:03)
--- NOTE | 2022-11-30 14:03 | P.PRCINT ---
Percutaneous Coronary Int. - Percutaneous Coronary Intervention Percutaneous Coronary Intervention: PROCEDURES PERFORMED: Bilateral coronary angiography, iFR LAD, PCI proximal RCA with a 3.5 x 12mm Xience WARREN, IVUS RCA INDICATION: Unstable angina, abnormal CT coronary angiography CONSENT:I have discussed the risks, benefits and alternative therapies for the above-mentioned procedure and for both sedation/analgesia as well as necessary blood product administration, if indicated, as they pertain to this patient. The patient has indicated understanding and acceptance of the risks and procedures discussed. PROCEDURE: After the risks, benefits and alternatives of the above mentioned procedure explained in detail with the patient, informed consent was obtained. Patient was taken to the catheterization lab and prepped and draped in usual fashion. Ultrasound guidance was used to assess for arterial access. A 6-Iranian sheath had previously been placed in the right radial artery. There was an intermediate LAD lesion, 60-70% and therefore iFR was recommended. Heparin was given. A 6-Iranian CLS 3.5 guide was attempted to be advanced however had resistance at the elbow. Therefore the 5-Iranian FL 3.5 diagnostic catheter was used to engage the left main. A 0.014 pressure wire was advanced in the left main and normalize. It was then advanced 1 cm distal to the LAD lesion and iFR was performed and was abnormal at 0.78. Given RCA appeared more significant and appeared to be the culprit lesion, PCI of the RCA was recommended. A 6-Iranian AL 0.75 guide was used to engage the RCA. A 0.014 BMW wire was advanced to the distal RCA. Predilation was performed with a 3.0 x 12 mm balloon. Intravascular ultrasound showed reference vessel 3.25-3.5 mm. Therefore a 3.5 x 12 mm Xience WARREN was placed. Repeat intravascular ultrasound showed good stent apposition and no dissection. Patient did have some atypical chest pain appeared related to swallowing the Brillinta with normal appearing IVUS and angiography and no EKG changes. Final angiograms were performed. Preinterventional there is 90% stenosis and ELENA-3 flow and postintervention there was less than 10% stenosis with ELENA 3 flow. The right radial sheath was removed and a TR band was placed with hemostasis achieved. The patient tolerated the procedure well. Patient was transported back to the post catheterization holding area in stable condition. Conscious Sedation: Patient was monitored under the direct supervision of myself for conscious sedation using Versed and fentanyl for a total duration of 30 minutes HEMODYNAMICS: Ao: 114/87 SELECTIVE CORONARY ARTERIOGRAPHY: LEFT MAIN: The left main is a large caliber vessel which bifurcates into the LAD and circumflex. There is no significant stenosis. LEFT ANTERIOR DESCENDING CORONARY ARTERY: LAD is a large caliber vessel which wraps around to the apex. There is a mid LAD 60-70% stenosis and otherwise mild luminal irregularities. After the diagonal 2 branch there is diffuse 30% LAD stenosis. LEFT CIRCUMFLEX CORONARY ARTERY: Left circumflex is a moderate caliber vessel without significant stenosis. RIGHT CORONARY ARTERY: The right coronary artery is a large caliber vessel which gives off a PDA and PLV branch and is the dominant vessel. There is a proximal RCA 90% stenosis followed by a mid RCA 40-50% stenosis. FINAL IMPRESSION: 1. CAD as described above including 90% proximal RCA stenosis and a mid LAD 60- 70% stenosis 2. iFR LAD abnormal at 0.78 PLAN: 1. Aggressive risk factor modification per most recent ACC/AHA guidelines. 2. Continue dual antiplatelets with aspirin and Brilinta for 12 months 3. Staged PCI of LAD if still having angina symptoms.
[2022-11-30] MEDS: TICAGRELOR 90 MG TAB PO SCH (19:35)
[2022-11-30] MEDS ORDERED: ATORVASTATIN 80 MG TAB PO SCH (21:00)
[2022-11-30] MEDS: ATORVASTATIN 40 MG TAB PO SCH (21:29)
[2022-12-01] MEDS: SODIUM CHLORIDE 0.9% 1,000 ML in EMPTY BAG 1 BAG IV SCH (05:59)
[2022-12-01 06:20] LABS: Mean Platelet Volume 7.5; Platelet Count 198 k/uL (150-450)
[2022-12-01] MEDS: PANTOPRAZOLE 40 MG TABLET PO SCH (06:20)
[2022-12-01] MEDS: LEVOTHYROXINE 125 MCG TAB PO SCH (06:20)
[2022-12-01 06:38] VITALS: TEMP 97.8
[2022-12-01 07:41] LABS: African American GFR (CKD) >90 (>60 ml/min/1.73 sqM); Non-African American GFR(CKD) 86 (>60 ml/min/1.73 sqM)
[2022-12-01 08:19] VITALS: BP 137/87; PULSE 63; RESP 16
[2022-12-01] MEDS ORDERED: ASPIRIN 81 MG PO SCH (09:00)
[2022-12-01] MEDS ORDERED: ASPIRIN 325 MG TAB PO SCH (09:00)
[2022-12-01] MEDS ORDERED: METOPROLOL SUCCINATE (ER) 25 MG TAB.ER.24H PO SCH (09:00)
--- NOTE | 2022-12-01 09:05 | P.PN ---
Subjective Progress Note Date: 12/01/22 History of present illness: This is a 62-year-old male patient of Dr. Leana Knight, with past medical history of dyslipidemia, family history of premature coronary artery disease, history of tobacco use. Patient has had difficulty with indigestion type chest pain and heartburn status post GI workup followed by a stress test regular treadmill stress test was inconclusive in August of this year. Patient subsequently underwent a stress Cardiolite that did not reveal any significant areas of ischemia. Patient was seen at the pain clinic and was sent to see Dr. Leana Knight regarding frequent PVCs prior to a pain procedure which ended up being canceled. PVCs were not causing any symptoms. Then a CT angiogram of his coronary arteries was ordered and patient went to [facility] yesterday have this done. He was having frequent PVCs including trigeminy according to the patient's and made the study difficult. There was concern for abnormal CTA and patient was contacted by Dr. Leana Knight and told come into the hospital for further evaluation with plan for cardiac catheterization today. Patient does have active chest pain indigestion type at this time of evaluation. EKG sinus rhythm with no acute ST changes. Chest x-ray: No acute findings CBC normal. Electrolytes renal function normal. Blood sugar 112. Troponin negative 3. Liver function tests normal. Magnesium 2.1. Lipase 254. Home cardiac medications: Levothyroxine 125 g daily Lexiscan Cardiolite stress test performed 11/11/22 in the office was negative with probable normal myocardial perfusion and function. 12/01 Yesterday, patient underwent cardiac catheterization with Dr. Leana Knight which revealed focal 90% stenosis involving the right coronary artery and moderate stenosis involving the mid LAD. Subsequently, patient underwent PCI of the proximal RCA and I FR of the LAD which was 0.78. Plan for dual antiplatelet and aspirin and Mylanta for 12 months and stage PCI of the LAD is still having anginal symptoms. Patient denies having any chest pain this morning. He is having less PVCs. Yesterday he was started on beta blockers well. Heart rate is running in the 60s, blood pressure 137/87, pulse ox 99% on room air. Echocardiogram reveals LVH with preserved systolic function. Right ventricular enlargement. Physical examination: Gen: This is a 62-year-old male. He is resting on the bed and appears to be in no acute distress. VS: reviewed HEENT: Head is atraumatic, normocephalic. Pupils equal, round. Sclerae is anicteric. NECK: Supple. No JVD. . LUNGS: Clear to auscultation. No wheezes or rhonchi. No intercostal retractions. HEART: Regular rate and rhythm. No murmur. ABDOMEN: Soft No tenderness. EXTREMITIES: No pedal edema. No calf tenderness. NEUROLOGICAL: Patient is awake, alert and oriented x3. Assessment: Chest pain secondary to CAD status post PCI of the proximal RCA PVCs Dyslipidemia Family history of premature coronary artery disease History of tobacco use Plan: Continue patient's current cardiac medications, new prescriptions have been sent to his pharmacy Patient is cleared from cardiology for discharge with follow-up with Dr. Knight 1 week. Nurse practitioner note has been reviewed, I agree with documented findings and plan of care. Patient was seen and examined. Objective - Vital Signs Vital signs: Vital Signs Temp 97.8 F 12/01/22 02:51 Pulse 60 12/01/22 02:51 Resp 15 12/01/22 02:51 BP 132/82 12/01/22 02:51 Pulse Ox 98 12/01/22 02:51 FiO2 Intake & Output 11/30/22 12/01/22 12/01/22 18:59 06:59 18:59 Intake Total 918 Balance 918 Intake: IV 800 Oral 118 Other: Voiding Method Toilet # Voids 3 3 - Labs CBC & Chem 7: 12/01/22 05:20 12/01/22 05:50 Labs: Abnormal Lab Results - Last 24 Hours (Table) 11/30/22 Range/Units 04:30 Triglycerides 216.00 H (0.00-149.00) mg/dL VLDL Cholesterol, Calc 43.20 H (5.00-40.00) mg/dL
[2022-12-01] MEDS: TICAGRELOR 90 MG TAB PO SCH (09:06)
--- NOTE | 2022-12-01 10:19 | P.DS ---
Providers Date of admission: 11/29/22 14:07 Expected date of discharge: 12/01/22 Attending physician: Arline Silverio DO Consults: 11/29/22 14:06 Consult Physician Urgent Consulting Provider: Enrique Knight Consult Reason/Comments: UA Do you want consulting provider notified?: Already Contacted 11/30/22 14:03 Consult Physician Routine Consulting Provider: [facility] Consult Reason/Comments: Post Interventional Patient Do you want consulting provider notified?: Already Contacted Primary care physician: [facility] Course: Discharge Diagnosis: Unstable angina. Pt underwent cardiac cath and was found to have multivessel occlusive coronary artery disease of RCA and LAD. He underwent successful stenting of RCA and was started on dual antiplatelet regimen with aspirin 81 mg daily and Brilinta and to follow up outpatient with cardiology for staged PCI of LAD. Patient discharged home on dual antiplatelet therapy with aspirin and Brilinta in addition to metoprolol 12.5 mg daily, atorvastatin 80 mg nightly, and sublingual nitroglycerin tablets to be used as needed for chest pain/discomfort. Hypertension Hyperlipidemia Hypothyroidism GERD Obstructive sleep apnea Hospital Course: Patient is a very pleasant 62-year-old male with a past medical history of hypothyroidism, GERD, and obstructive sleep apnea. Pt presented to the emergency department on 11/29/22 with a chief complaint of chest pain. Labs completed and reviewed. CBC, coags, and CMP were unremarkable. Lipase normal findings at 254. Troponin was negative at less than 0.012. EKG showing sinus bradycardia at 58 bpm with T-wave inversion in inferior leads 3 and aVF otherwise no significant abnormalities upon personal review and interpretation. Patient was started on heparin infusion for treatment of unstable angina. Patient admitted under our services with consultation to cardiology. Troponins trended overnight all negative at less than 0.0123 draws. Hemoglobin A1c 5.1%. Lipid profile showing elevated triglycerides of 216 and elevated VLDL of 43.20. TSH normal findings at 2.850. Echocardiogram completed revealing a preserved EF of 55-60% with severe right ventricular dilation and mild tricuspid and pulmonic regurgitation. Patient was evaluated by cardiology and underwent a cardiac cath on 11/30/22 and was found to have focal 90% stenosis involving the right coronary artery and moderate stenosis (40%) involving mid LAD. Patient then underwent successful stenting of RCA and started on dual platelet regimen with aspirin and Brilinta and to follow up outpatient with cardiology for staged PCI of LAD. Patient discharged home on dual antiplatelet therapy with aspirin and Brilinta in addition to metoprolol 12.5 mg daily, atorvastatin 80 mg nightly, and sublingual nitroglycerin tablets to be used as needed for chest pain/discomfort. Patient to follow up outpatient with his PCP in 1-2 days and with air quality technician in 1 week. Physical examination: Patient seen and examined at bedside. Vital signs reviewed and stable. General: Nontoxic, no distress and appears stated age. Derm: Skin warm and dry, normal coloration for ethnicity. Head: Atraumatic, normocephalic and symmetric. Eyes: EOMs intact, no lid lag, and anicteric sclera Mouth: no lip lesions, mucus membranes moist Cardiovascular: regular rate and rhythm with normal S1S2, no murmur, positive posterior tibial pulses bilaterally, and cap refill < 2 seconds. Lungs: Respirations even, regular, and unlabored on room air. Lungs CTA bilaterally, no rhonchi, no rales, no wheezing, and no accessory muscle usage. Abdominal: soft, nontender to palpation, no guarding, no appreciable organomegaly Ext: ROM intact. No gross muscle atrophy, no edema, no contractures Neuro: Speech clear, face symmetrical and CN II-XII grossly intact with no noted focal neuro deficits Psych: Alert and oriented to person, place, time, and situation. Appropriate and pleasant affect. A total of 38 minutes of time were spent preparing this complex discharge summary. Pt was discharged on 12/02/19 through 10:17 AM. Patient was seen independently by Nurse Practitioner. This document was prepared using Verac[employer] dictation software. Please allow for errors in assembler mechanical ordnance while rare they do occur. I reviewed the documentation as provided by the LANDON above, who is the original author of this note. I agree with the documented assessment and plan, with the following changes: none Patient Condition at Discharge: Stable Plan - Discharge Summary New Discharge Prescriptions: New Nitroglycerin Sl Tabs [Nitrostat] 0.4 mg SUBLINGUAL Q5M PRN #25 tab PRN Reason: Chest Pain Metoprolol Succinate (ER) [Toprol XL] 12.5 mg PO DAILY #90 tab Ticagrelor [Brilinta] 90 mg PO BID #180 tab Aspirin 81 mg PO DAILY tab Atorvastatin [Lipitor] 80 mg PO HS #90 tab Continue Levothyroxine Sodium [Synthroid] 125 mcg PO DAILY Ergocalciferol [Vitamin D2 (DRISDOL)] 50,000 unit PO HOFFMAN methocarbamoL 750 mg PO TID PRN PRN Reason: Muscle Spasm Calcium Carbonate [Tums] 1,000 mg PO ACHS PRN PRN Reason: Gi Upset Pantoprazole [Protonix] 40 mg PO AC-BID Discharge Medication List Ergocalciferol [Vitamin D2 (DRISDOL)] 50,000 unit PO HOFFMAN 06/08/16 [History] Levothyroxine Sodium [Synthroid] 125 mcg PO DAILY 06/08/16 [History] Pantoprazole [Protonix] 40 mg PO AC-BID 09/15/21 [History] methocarbamoL 750 mg PO TID PRN 09/15/21 [History] Calcium Carbonate [Tums] 1,000 mg PO ACHS PRN 11/29/22 [History] Aspirin 81 mg PO DAILY tab 12/01/22 [Rx] Atorvastatin [Lipitor] 80 mg PO HS #90 tab 12/01/22 [Rx] Metoprolol Succinate (ER) [Toprol XL] 12.5 mg PO DAILY #90 tab 12/01/22 [Rx] Nitroglycerin Sl Tabs [Nitrostat] 0.4 mg SUBLINGUAL Q5M PRN #25 tab 12/01/22 [Rx] Ticagrelor [Brilinta] 90 mg PO BID #180 tab 12/01/22 [Rx] Follow up Appointment(s)/Referral(s): Simone Howell DO [Primary Care Provider] - 1-2 days Enrique Knight MD [STAFF PHYSICIAN] - 12/08/22 11:15 am Patient Instructions/Handouts: Angina (DC), After Radial Heart Catheterization (GEN) Activity/Diet/Wound Care/Special Instructions: Special Instructions: Aspirin as anti-platelet therapy - Aspirin lessens the chance of heart attack and stroke. It helps prevent blood clots from forming, allowing the blood to flow more easily. Each day, you will take one 81 mg (non-enteric coated) tablet daily. Do not stop unless instructed by your doctor. Anti-platelet Therapy. -In addition to aspirin, you will take one additional anti-platelet medication daily. This will help prevent a clot from forming in your stent: Brilinta -You will need to take your anti-platelet medicine every day for 12 months -Please consult your heart doctor before you stop this medicine. -They may want you to continue for a longer period of time. Statins -A statin medication lowers cholesterol levels in the blood. This helps slow the progression of heart disease. - Please take your statin medication as prescribed by your doctor. -You may be taking one of the following statins: Atorvastatin Beta blockers Your Medication: Metoprolol Is a medication that protects your heart from stress and can prevent future heart attacks. It can slow your heart rate. It can take weeks for your body to get used to a beta devorah. The dose may need to be changed a few times as your body adjusts Do not stop taking these medicines without talking to your doctor. -Take all other medicines as directed by your doctor. Do not take any extra aspirin or ibuprofen. They can increase your risk of bleeding. Many [id number] drugs contain aspirin. If you are unsure about what the drug contains, check with your pharmacist before taking it. -For mild discomfort, you may take plain Tylenol (acetaminophen). Follow dose directions, but do not take more than 4,000 mg of acetaminophen in 24 hours. Contact your doctor right away or go to the nearest hospital Emergency Room if you have: -Severe angina or chest pain. (This may be a sign of a problem with your stent.) -Excessive bruising, blood in urine/stool or black tarry stools. Healthy LifeStyle It is important to keep a heart healthy lifestyle. This can improve your long- term health and decrease your risk for heart attacks. -Managing your blood cholesterol, blood pressure, weight, and stress. -The importance of regular exercise. -Heart Healthy Diet: Include more plants in your diet. Eat lots of fresh vegetables and fresh fruits. Eat good fats: plant based oils, avocado, nuts, beans, legumes. Eat more seafood. Limit Meat. Switch to whole grains. -Avoid fried foods and animal fats and processed meats Follow up with your PCP and [facility] Thank you for allowing us to participate in your care, it was truly a pleasure having you for our patient!!! Discharge Disposition: HOME SELF-CARE
[2022-12-04] MEDS ORDERED: ERGOCALCIFEROL 1,250 MCG (50,000 IU) CAPSULE PO SCH (09:00)
== END 2022-12-01 11:32 | disposition home or self-care (01) ==
LOC: EC 13:07 → 6NMEDSUR 14:07
PROVIDERS: ADMIT Internal Medicine; ATTEND Internal Medicine
DX: I25.110 Atherosclerotic heart disease of native coronary artery with unstable angina pectoris (principal); E03.9 Hypothyroidism, unspecified; K21.9 Gastro-esophageal reflux disease without esophagitis; E78.5 Hyperlipidemia, unspecified; I49.3 Ventricular premature depolarization; I10 Essential (primary) hypertension; G47.33 Obstructive sleep apnea (adult) (pediatric); Z87.891 Personal history of nicotine dependence; Z98.61 Coronary angioplasty status; Z79.890 Hormone replacement therapy; Z79.899 Other long term (current) drug therapy; Z82.49 Family history of ischemic heart disease and other diseases of the circulatory system; Z88.0 Allergy status to penicillin
CPT/HCPCS: 96376 ×2; 96374; 99291; 36415; 93005; 93306; 92978; 93458; 93799; 80061; 80053; 84443; 82565; 83690; 83735; 84484; 85025; 85049 ×2; 85610; 85730 ×2; 83036; 71046; G0378 ×3; C1769 ×4; C9600; C1887 ×2; C1894; C1725; C1753; C1874; J2250; J2001; J1644 ×3; J3010; Q9967; J2305

== ENCOUNTER 2022-12-28 07:29 | Day surgery (SDC) | payer MEDICARE, OTHER ==
[~2022-12-28 07:29] MED LIST changes: +ALPRAZolam 0.25 MG TAB PO PRN; +ALPRAZolam 0.5 MG TAB PO PRN; +ASPIRIN 325 MG TAB PO STA; +ATORVASTATIN 80 MG TAB PO STA; -DEXAMETHASONE SOD PHOSPHATE 4 MG/ML 1 ML VIAL IV ONE; +HEPARIN SODIUM,PORCINE (1 ML) 2,500 UNIT in SODIUM CHLORIDE 0.9% 250 ML IRRIGATION PRN; +HEPARIN SODIUM,PORCINE 10,000 UNIT in SODIUM CHLORIDE 0.9% 1,000 ML IRRIGATION PRN; -HYDROmorphone 0.5 MG/0.5 ML SYRINGE IVP PRN; -LACTATED RINGERS 1,000 ML IV SCH; -LIDOCAINE 1% (10MG/ML) FOR IV START INTRADERMA PRN; +NITROGLYCERIN SL TABS 0.4 MG TAB SUBLINGUAL PRN; -ONDANSETRON 4 MG/2 ML VIAL IVP ONE; +SODIUM CHLORIDE 0.9% 1,000 ML in EMPTY BAG 1 BAG IV SCH
[2022-12-28 08:25] LABS: Basophils # (A) 0.1 k/uL (0-0.2); Basophils % (A) 1 %; Eosinophils # (A) 0.1 k/uL (0-0.7); Eosinophils % (A) 2 %; HCT 46.1 % (39.0-53.0); HGB 16.5 gm/dL (13.0-17.5); Lymphocytes % (A) 31 %; MCHC 35.8 g/dL (31.0-37.0); MCV 89.3 fL (80.0-100.0); Mean Platelet Volume 7.2; Monocytes # (A) 0.4 k/uL (0-1.0); Monocytes % (A) 6 %; Neutrophils # (A) 3.8 k/uL (1.3-7.7); Neutrophils % (A) 59 %; Platelet Count 227 k/uL (150-450); RBC 5.17 m/uL (4.30-5.90); RDW 12.1 % (11.5-15.5); WBC 6.4 k/uL (3.8-10.6)
[2022-12-28 08:34] LABS: African American GFR (CKD) 88 (>60 ml/min/1.73 sqM); Anion Gap 10 mmol/L; Blood Urea Nitrogen 14 mg/dL (9-20); Calcium 9.9 mg/dL (8.4-10.2); Carbon Dioxide 27 mmol/L (22-30); Chloride 103 mmol/L (98-107); Glucose 94 mg/dL (74-99); Non-African American GFR(CKD) 76 (>60 ml/min/1.73 sqM); Potassium 4.4 mmol/L (3.5-5.1); Sodium 140 mmol/L (137-145)
[2022-12-28] MEDS ORDERED: HEPARIN SODIUM 1,000 UN/ML (10ML VL) ONE (09:49)
[2022-12-28] MEDS ORDERED: VERAPAMIL 2.5 MG/ML 2 ML AMP ONE (09:49)
[2022-12-28] MEDS ORDERED: fentaNYL (PF) 50 MCG/ML 2 ML AMP ONE (09:50)
[2022-12-28] MEDS ORDERED: MIDAZOLAM 2 MG/2 ML VIAL IVP ONE (10:13)
[2022-12-28] MEDS: fentaNYL (PF) 50 MCG/1 ML VIAL IVP ONE ×2 (10:13→11:15)
[2022-12-28] MEDS ORDERED: LIDOCAINE 1% INJ 10MG/ML (20 ML MDV) SQ ONE (10:14)
[2022-12-28] MEDS ORDERED: VERAPAMIL SYRINGE (5 MG/10 ML) INTRAARTER ONE (10:15)
[2022-12-28] MEDS: HEPARIN SODIUM 1,000 UN/ML (10ML VL) IV ONE ×3 (10:17→10:56)
[2022-12-28] MEDS: NITROGLYCERIN 1000MCG/10ML SYRINGE INTRACORON ONE ×2 (10:28→11:06)
[2022-12-28] MEDS ORDERED: IOPAMIDOL-370 100ML BTL INJ ONE ×2 (11:15)
--- NOTE | 2022-12-28 11:27 | P.PRCINT ---
Percutaneous Coronary Int. - Percutaneous Coronary Intervention Percutaneous Coronary Intervention: PROCEDURES PERFORMED: Left coronary angiography, ultrasound guided arterial access, IVUS LAD, cutting balloon angioplasty LAD, CSI rotational atherectomy LAD, PCI LAD with a 3.5 x 18mm Xience WARREN, post dilated with a 4.0 NC balloon INDICATION: Unstable angina, stage PCI CONSENT:I have discussed the risks, benefits and alternative therapies for the above-mentioned procedure and for both sedation/analgesia as well as necessary blood product administration, if indicated, as they pertain to this patient. The patient has indicated understanding and acceptance of the risks and procedures discussed. PROCEDURE: After the risks, benefits and alternatives of the above mentioned procedure explained in detail with the patient, informed consent was obtained. Patient was taken to the catheterization lab and prepped and draped in usual fashion. Ultrasound guidance was used to assess for arterial access. 1% lidocaine was used to anesthetize the right radial artery. A 6-[place] sheath was placed in the right radial artery using modified Seldinger technique and ultrasound guidance. The 6-[place] CLS 3.5 catheter was inserted into the left ventricle and pressure measurements were obtained. Previous iFR of LAD wasn't abnormal and therefore decision was made to perform PCI of the LAD. A 6-[place] CLS 3.5 guide was used to engage the left main. A 0.014 BMW wire advanced into the distal LAD. Predilation was performed with a 2.5 x 8 mm balloon. There was significant watermeloning. Intravascular ultrasound showed reference vessel 3.25-3.5 mm distally and 4.0 mm proximally with what appeared to be a fibrotic lesion. Attempted predilation with a 3.0 x 12 mm noncompliant balloon and then a 3.0 x 10 mm cutting balloon however still some waist and watermelloning. Therefore the BMW wire was changed to a CSI Viper wire and CSI rotational atherectomy was performed 2 times at low and 2 times at high speed. Balloon angioplasty was performed with a 3.5 x 12 mm noncompliant balloon. Next a 3.5 x 18 mm Xience WARREN was placed in the mid LAD. The proximal portion was postdilated with a 4.0 noncompliant balloon. Repeat intravascular ultrasound showed well expanded stent, no dissection. There was "pinching" of a very small caliber diagonal branch and patient did have chest pain throughout the procedure felt likely related to the diagonal branch. Final angiograms were performed. Preintervention there was 70% stenosis and ELENA-3 flow and postintervention there was 0% stenosis and ELENA-3 flow. The right radial sheath was removed and a TR band was placed with hemostasis achieved. The patient tolerated the procedure well. Patient was transported back to the post catheterization holding area in stable condition. Conscious Sedation: Patient was monitored under the direct supervision of myself for conscious sedation using Versed and fentanyl for a total duration of 60 minutes HEMODYNAMICS: Order: 144/72 LV: 131/5, LVEDP 20 SELECTIVE CORONARY ARTERIOGRAPHY: LEFT MAIN: The left main is a large caliber vessel which bifurcates into the LAD and circumflex. There is no significant stenosis. LEFT ANTERIOR DESCENDING CORONARY ARTERY: LAD is a large caliber vessel which wraps around to the apex. There is mid LAD 70% stenosis and mild luminal irregularities of the remainder of the LAD. There is mid to distal LAD bridging. LEFT CIRCUMFLEX CORONARY ARTERY: Left circumflex is a moderate caliber vessel without significant stenosis. RIGHT CORONARY ARTERY: The right coronary artery was not imaged. FINAL IMPRESSION: 1. CAD as described above including 70% mid LAD stenosis 2. S/p PCI LAD with a 3.5 x 18mm Xience WARREN PLAN: 1. Aggressive risk factor modification per most recent ACC/AHA guidelines. 2. Continue dual antiplatelets with aspirin and Brilinta for 12 months
[2022-12-28] MEDS ORDERED: methocarbamoL 750 MG TAB PO PRN (11:35)
[2022-12-28] MEDS ORDERED: MAG HYDROX/AL HYDROX/SIMETH 30 ML CUP PO PRN (11:36)
[2022-12-28] MEDS ORDERED: RX INFO: IV CONTRAST WAS GIVEN 1 EACH MISC MISCELLANE PRN (11:36)
[2022-12-28] MEDS ORDERED: ZOLPIDEM 5 MG TAB PO PRN (11:36)
[2022-12-28] MEDS ORDERED: ATROPINE SULFATE 0.1 MG/ML 10ML SYRINGE IV PRN (11:36)
[2022-12-28] MEDS ORDERED: MAG HYDROX/AL HYDROX/SIMETH 30 ML CUP ONE (13:42)
[2022-12-28] MEDS ORDERED: ACETAMINOPHEN TAB 325 MG TAB PO PRN (15:17)
[2022-12-28] MEDS ORDERED: ACETAMINOPHEN TAB 325 MG TAB ONE (15:19)
[2022-12-28] MEDS ORDERED: NITROGLYCERIN SL TABS 0.4 MG TAB SUBLINGUAL STA (15:22)
[2022-12-28] MEDS ORDERED: MORPHINE SULFATE 2 MG/ML SYRINGE IVP PRN (15:22)
[2022-12-28] MEDS ORDERED: MORPHINE SULFATE 4 MG/ML SYRINGE ONE (15:26)
[2022-12-28] MEDS: PANTOPRAZOLE 40 MG TABLET PO SCH (16:49)
[2022-12-28 17:13] VITALS: RESP 16
[2022-12-28] MEDS: TICAGRELOR 90 MG TAB PO SCH (20:44)
[2022-12-28] MEDS: METOPROLOL SUCCINATE (ER) 25 MG TAB.ER.24H PO SCH (20:44)
[2022-12-28] MEDS ORDERED: ATORVASTATIN 80 MG TAB PO SCH (21:00)
[2022-12-29] MEDS: PANTOPRAZOLE 40 MG TABLET PO SCH (05:52)
[2022-12-29 06:22] LABS: Basophils # (A) 0.1 k/uL (0-0.2); Basophils % (A) 1 %; Eosinophils # (A) 0.1 k/uL (0-0.7); Eosinophils % (A) 2 %; HCT 45.9 % (39.0-53.0); HGB 15.8 gm/dL (13.0-17.5); Lymphocytes # (A) 1.5 k/uL (1.0-4.8); Lymphocytes % (A) 23 %; MCH 31.3 pg (25.0-35.0); MCHC 34.3 g/dL (31.0-37.0); Mean Platelet Volume 7.5; Monocytes # (A) 0.4 k/uL (0-1.0); Monocytes % (A) 6 %; Neutrophils # (A) 4.4 k/uL (1.3-7.7); Neutrophils % (A) 66 %; Platelet Count 193 k/uL (150-450); RBC 5.05 m/uL (4.30-5.90); RDW 12.1 % (11.5-15.5); WBC 6.6 k/uL (3.8-10.6)
[2022-12-29] MEDS ORDERED: LEVOTHYROXINE 125 MCG TAB PO SCH (06:30)
[2022-12-29 06:34] LABS: African American GFR (CKD) >90 (>60 ml/min/1.73 sqM); Anion Gap 10 mmol/L; Blood Urea Nitrogen 13 mg/dL (9-20); Calcium 9.3 mg/dL (8.4-10.2); Carbon Dioxide 25 mmol/L (22-30); Chloride 106 mmol/L (98-107); Glucose 87 mg/dL (74-99); Non-African American GFR(CKD) 85 (>60 ml/min/1.73 sqM); Potassium 4.5 mmol/L (3.5-5.1); Sodium 141 mmol/L (137-145)
[2022-12-29] MEDS: METOPROLOL SUCCINATE (ER) 25 MG TAB.ER.24H PO SCH (08:05)
[2022-12-29] MEDS: TICAGRELOR 90 MG TAB PO SCH (08:06)
[2022-12-29 08:43] VITALS: BP 127/86; PULSE 62; TEMP 97.8
[2022-12-29] MEDS ORDERED: ASPIRIN 81 MG PO SCH (09:00)
--- NOTE | 2022-12-30 13:34 | P.DS ---
Providers Attending physician: Bimal Huddleston DO Consults: 12/28/22 11:36 Consult Physician Routine Consulting Provider: [facility] Consult Reason/Comments: Post Interventional patient Do you want consulting provider notified?: Already Contacted [facility]: [facility] Course: Patient is a pleasant 62-year-old male who underwent initial stenting of the RCA and had residual abnormal functional assessment of the LAD and therefore underwent staged PCI of LAD 12/28. This was a more fibrotic lesion requiring atherectomy, Cutting Balloon angioplasty and eventually underwent stenting successfully. He did have some degree of chest pain felt likely related to a small caliber diagonal branch after the procedure an overnight. Intravascular ultrasound showed no dissection with well-expanded stent. He was monitored overnight and had mild discomfort throughout the night however this had resolved by 12/29 and appears stable for discharge with outpatient follow-up in 1 week. Plan - Discharge Summary Discharge Rx Participant: Yes New Discharge Prescriptions: No Action Levothyroxine Sodium [Synthroid] 125 mcg PO DAILY Ergocalciferol [Vitamin D2 (DRISDOL)] 50,000 unit PO HOFFMAN methocarbamoL 750 mg PO TID PRN PRN Reason: Muscle Spasm Calcium Carbonate [Tums] 1,000 mg PO ACHS PRN PRN Reason: Gi Upset Nitroglycerin Sl Tabs [Nitrostat] 0.4 mg SUBLINGUAL Q5M PRN #25 tab PRN Reason: Chest Pain Metoprolol Succinate (ER) [Toprol XL] 12.5 mg PO DAILY #90 tab Pantoprazole [Protonix] 40 mg PO AC-BID Ticagrelor [Brilinta] 90 mg PO BID #180 tab Aspirin 81 mg PO DAILY tab Atorvastatin [Lipitor] 80 mg PO HS #90 tab Discharge Medication List Ergocalciferol [Vitamin D2 (DRISDOL)] 50,000 unit PO HOFFMAN 06/08/16 [History] Levothyroxine Sodium [Synthroid] 125 mcg PO DAILY 06/08/16 [History] Pantoprazole [Protonix] 40 mg PO AC-BID 09/15/21 [History] methocarbamoL 750 mg PO TID PRN 09/15/21 [History] Calcium Carbonate [Tums] 1,000 mg PO ACHS PRN 11/29/22 [History] Aspirin 81 mg PO DAILY tab 12/01/22 [Rx] Atorvastatin [Lipitor] 80 mg PO HS #90 tab 12/01/22 [Rx] Metoprolol Succinate (ER) [Toprol XL] 12.5 mg PO DAILY #90 tab 12/01/22 [Rx] Nitroglycerin Sl Tabs [Nitrostat] 0.4 mg SUBLINGUAL Q5M PRN #25 tab 12/01/22 [Rx] Ticagrelor [Brilinta] 90 mg PO BID #180 tab 12/01/22 [Rx] Follow up Appointment(s)/Referral(s): Bimal Huddleston DO [STAFF PHYSICIAN] - 1 Week (APPOINTMENT MADE ON December @ 2:00PM ) Patient Instructions/Handouts: Moderate Sedation (ED), Cardiac Rehabilitation (ED), Coronary Intravascular Stent Placement (DC), After Radial Heart Catheterization (GEN) Activity/Diet/Wound Care/Special Instructions: *NO LIFTING, PUSHING, OR PULLING ANYTHING OVER 5 POUNDS FOR 5 DAYS *NO DRIVING FOR 3 DAYS *YOU CAN REMOVE YOUR DRESSING TOMORROW AND YOU CAN SHOWER AT THAT TIME - DO NOT SUBMERSE YOUR PUNCTURE SITE IN WATER FOR A FEW DAYS TO PREVENT INFECTION - SO NO TUB BATHS, POOLS, HOT TUBS, DISHES...ETC *ANY SIGNS OF BLEEDING (HARDNESS, SWELLING, OR EXCESSIVE BRUISING) HOLD DIRECT PRESSURE ON YOUR PUNCTURE SITE AND COME TO THE NEAREST EMERGENCY ROOM TO GET YOUR PUNCTURE SITE LOOKED AT - DO NOT DRIVE YOURSELF! EITHER CALL EMS OR HAVE SOMEONE DRIVE YOU! Discharge Disposition: HOME SELF-CARE
== END 2022-12-29 12:02 | disposition home or self-care (01) ==
LOC: CATHCVL 07:29 → 6NMEDSUR 11:13 → CATHCVL 12-29 12:02
PROVIDERS: ATTEND Internal Medicine
DX: I25.110 Atherosclerotic heart disease of native coronary artery with unstable angina pectoris (principal); G47.30 Sleep apnea, unspecified; F10.90 Alcohol use, unspecified, uncomplicated; Z87.891 Personal history of nicotine dependence; Z88.0 Allergy status to penicillin; Z88.8 Allergy status to other drugs, medicaments and biological substances; Z79.899 Other long term (current) drug therapy
CPT/HCPCS: 92978; 76937; 80048 ×2; 85025 ×2; C9602; C1769 ×3; C1887; C1894; C1725 ×5; C1753; C1724; C1874; J2250; J2270; J2001; J1644; Q9967; J3010; J2305

== ENCOUNTER → 2023-06-12 | Outpatient (CLI) | payer MEDICARE, OTHER ==
[2023-06-12 10:43] LABS: Basophils # (A) 0.07 X 10*3/uL (0.00-0.10); Basophils % (A) 1.2 %; Eosinophils # (A) 0.12 X 10*3/uL (0.04-0.35); Eosinophils % (A) 2.1 %; HGB 16.3 g/dL (13.0-17.0); Lymphocytes # (A) 1.75 X 10*3/uL (0.90-5.00); Lymphocytes % (A) 30.1 %; MCH 31.1 pg (27.0-32.0); MCV 91.6 FL (80.0-97.0); Mean Platelet Volume 10.3 FL (9.5-12.2); Monocytes # (A) 0.42 X 10*3/uL (0.20-1.00); Monocytes % (A) 7.2 %; NRBC Per 100 WBC 0 X 10*3/uL (0.00-0.01); Neutrophils # (A) 3.45 X 10*3/uL (1.80-7.70); Neutrophils % (A) 59.2 %; Platelet Count 223 X 10*3/uL (140-440); RBC 5.24 X 10*6/uL (4.40-5.60); RDW 12.1 % (11.5-14.5); WBC 5.82 X 10*3/uL (4.50-10.00)
[2023-06-12 11:08] LABS: ALT 105 U/L (10-49); AST 67 U/L (14-35); Albumin 4.2 g/dL (3.8-4.9); Albumin/Globulin Ratio 1.62 Ratio (1.60-3.17); Alkaline Phosphatase 92 U/L (41-126); BUN/Creat Ratio 10.92 Ratio (12.00-20.00); Blood Urea Nitrogen 13.1 mg/dL (9.0-27.0); Calcium 9.9 mg/dL (8.7-10.3); Carbon Dioxide 26.3 mmol/L (21.6-31.8); Chloride 106 mmol/L (96-109); Chol/HDL Ratio 2.28 Ratio; Globulin 2.6 g/dL (1.6-3.3); Glucose 103 mg/dL (70-110); LDL Cholesterol,Calculated 47.2 mg/dL (0.0-131.0); Potassium 4.8 mmol/L (3.5-5.5); Sodium 140 mmol/L (135-145); T4, Free (Free Thyroxine) 1.56 ng/dL (0.80-1.80); Total Bilirubin 1.1 mg/dL (0.3-1.2); Total Protein 6.8 g/dL (6.2-8.2)
== END | disposition home or self-care (01) ==
LOC: LABWHC1 07:00
PROVIDERS: ATTEND Internal Medicine Critical Care Medicine
DX: Z00.00 Encounter for general adult medical examination without abnormal findings (principal); N40.0 Benign prostatic hyperplasia without lower urinary tract symptoms; I25.10 Atherosclerotic heart disease of native coronary artery without angina pectoris; E78.5 Hyperlipidemia, unspecified
CPT/HCPCS: 84439; 80061; 80053; 84443; 85025; 82306; 83036; 36415; G0103

== ENCOUNTER 2023-06-29 06:10 | Day surgery (SDC) | payer MEDICARE, OTHER ==
[2023-06-27 11:15] VITALS: BMI 30.3
[~2023-06-29 06:10] MED LIST changes: -HEPARIN SODIUM,PORCINE (1 ML) 2,500 UNIT in SODIUM CHLORIDE 0.9% 250 ML IRRIGATION PRN; -HEPARIN SODIUM,PORCINE 10,000 UNIT in SODIUM CHLORIDE 0.9% 1,000 ML IRRIGATION PRN
[2023-06-29] MEDS: SODIUM CHLORIDE 0.9% 1,000 ML IV ONE (06:33)
[2023-06-29] MEDS ORDERED: HEPARIN SODIUM,PORCINE (1 ML) 2,500 UNIT in SODIUM CHLORIDE 0.9% 250 ML IRRIGATION PRN (07:00)
[2023-06-29] MEDS ORDERED: HEPARIN SODIUM,PORCINE 10,000 UNIT in SODIUM CHLORIDE 0.9% 1,000 ML IRRIGATION PRN (07:00)
[2023-06-29] MEDS ORDERED: HEPARIN SODIUM 1,000 UN/ML (10ML VL) ONE (07:09)
[2023-06-29] MEDS ORDERED: fentaNYL (PF) 50 MCG/ML 2 ML AMP ONE (07:09)
[2023-06-29] MEDS ORDERED: VERAPAMIL 2.5 MG/ML 2 ML AMP ONE (07:10)
[2023-06-29] MEDS: fentaNYL (PF) 50 MCG/ML 2 ML AMP IVP ONE (07:26)
[2023-06-29] MEDS: MIDAZOLAM 2 MG/2 ML VIAL IVP ONE (07:26)
[2023-06-29 07:27] VITALS: RESP 16; TEMP 98
[2023-06-29] MEDS: LIDOCAINE 1% INJ 10MG/ML (20 ML MDV) SQ ONE (07:27)
[2023-06-29] MEDS: VERAPAMIL SYRINGE (5 MG/10 ML) INTRAARTER ONE (07:28)
[2023-06-29] MEDS: HEPARIN SODIUM 1,000 UN/ML (10ML VL) IVP ONE (07:33)
[2023-06-29] MEDS: IOPAMIDOL-370 100ML BTL INJ ONE (07:44)
[2023-06-29] MEDS ORDERED: RX INFO: IV CONTRAST WAS GIVEN 1 EACH MISC MISCELLANE PRN (07:55)
[2023-06-29] MEDS ORDERED: SODIUM CHLORIDE 0.9% 1,000 ML IV SCH (08:00)
--- NOTE | 2023-06-29 08:11 | CC ---
CARDIAC CATHETERIZATION REPORT INDICATIONS: Unstable angina. HISTORY OF PRESENT ILLNESS: This is a 63-year-old gentleman with history of coronary artery disease, status post angioplasty with stent placement of mid LAD in December of 2022 who presented to me on Monday with symptoms of chest pain. He described intermittent episodes of precordial chest pressure at rest for which he had to take sublingual nitroglycerin. EKG did not reveal any ischemic changes. Because of his new-onset typical chest pain, I advised him to undergo cardiac catheterization. The patient had been explained of risks, benefits, and alternatives, understood and accepted. PROCEDURE NOTE: After obtaining informed consent, left heart catheterization and coronary angiogram were performed via the right radial artery using standard Srinivas catheters. The patient tolerated the procedure well without any obvious immediate complications. The patient received moderate conscious sedation. Total sedation time was 14 minutes. Right radial artery access was obtained using Seldinger technique. The 6-[place] sheath was placed. Catheters and wires were floated into the ascending aorta under fluoroscopic guidance. The patient received verapamil and heparin per protocol. FINDINGS: 1. Hemodynamics: Left ventricular end-diastolic pressure is 8 to 10 mm. There is no significant gradient across the aortic valve. 2. Left ventriculogram: Left ventriculogram is not performed. 3. Angiographic Data: a.Right Coronary Artery: Right coronary artery is a large dominant vessel that shows mild nonobstructive disease in the proximal portion. Left main coronary artery is a normal-sized vessel and is free of stenosis. Divides into left anterior descending coronary artery and circumflex coronary artery. Circumflex coronary artery and its branches are free of significant stenosis. The previously stented segment within the LAD appears patent. There is very mild in- stent restenosis. CONCLUSION: Patent stent within the LAD. PLAN: I am going to have Dr. Huddleston, who performed the angioplasty, review the angiographic data and see if we need to do an IVUS on this vessel. MMODL / IJN: [id number] /
[2023-06-29 13:08] VITALS: BP 122/72; PULSE 68
== END 2023-06-29 11:10 | disposition home or self-care (01) ==
LOC: CATHCVL 06:10
PROVIDERS: ATTEND Internal Medicine Cardiovascular Disease
DX: I25.110 Atherosclerotic heart disease of native coronary artery with unstable angina pectoris (principal); E78.5 Hyperlipidemia, unspecified; F17.210 Nicotine dependence, cigarettes, uncomplicated; Z82.49 Family history of ischemic heart disease and other diseases of the circulatory system; Z88.0 Allergy status to penicillin; Z95.5 Presence of coronary angioplasty implant and graft; Z79.82 Long term (current) use of aspirin; Z79.890 Hormone replacement therapy; Z79.899 Other long term (current) drug therapy
CPT/HCPCS: 93458; C1769; C1894; J2250; J2001; J3010; J1644; Q9967

== ENCOUNTER → 2023-11-29 | Outpatient (CLI) | payer MEDICARE, OTHER ==
[2023-11-29 11:01] LABS: ALT 56 U/L (10-49); AST 44 U/L (14-35); Albumin 4.2 g/dL (3.8-4.9); Alkaline Phosphatase 66 U/L (41-126); BUN/Creat Ratio 11.33 Ratio (12.00-20.00); Blood Urea Nitrogen 13.6 mg/dL (9.0-27.0); Calcium 9.6 mg/dL (8.7-10.3); Carbon Dioxide 25.9 mmol/L (21.6-31.8); Chloride 104 mmol/L (96-109); Globulin 2.8 g/dL (1.6-3.3); Glucose 98 mg/dL (70-110); Potassium 4.8 mmol/L (3.5-5.5); Sodium 140 mmol/L (135-145)
[2023-11-29 11:05] LABS: Basophils # (A) 0.07 X 10*3/uL (0.00-0.10); Eosinophils # (A) 0.12 X 10*3/uL (0.04-0.35); Eosinophils % (A) 1.8 %; HGB 16.6 g/dL (13.0-17.0); Lymphocytes # (A) 2.01 X 10*3/uL (0.90-5.00); MCHC 33.9 g/dL (32.0-37.0); MCV 88.4 FL (80.0-97.0); Mean Platelet Volume 9.9 FL (9.5-12.2); Monocytes # (A) 0.57 X 10*3/uL (0.20-1.00); Monocytes % (A) 8.5 %; NRBC Per 100 WBC 0 X 10*3/uL (0.00-0.01); Neutrophils % (A) 58.4 %; Platelet Count 205 X 10*3/uL (140-440); RBC 5.54 X 10*6/uL (4.40-5.60); RDW 12.4 % (11.5-14.5); WBC 6.69 X 10*3/uL (4.50-10.00)
[2023-11-29 11:13] LABS: INR 1.08 sec (0.93-1.11); Prothrombin Time 11.6 sec (9.9-11.9)
== END | disposition home or self-care (01) ==
LOC: LABWHC1 06:52
PROVIDERS: ATTEND Internal Medicine Critical Care Medicine
DX: Z01.818 Encounter for other preprocedural examination (principal)
CPT/HCPCS: 36415; 80053; 82306; 85025; 85610

== ENCOUNTER → 2023-12-05 | Outpatient (CLI) | payer MEDICARE, OTHER | END | disposition home or self-care (01) | LOC: LABPAT 13:35 | PROVIDERS: ATTEND Orthopaedic Surgery | CPT/HCPCS: 86850; 86900; 86901; 87070 ==

== ENCOUNTER 2023-12-12 09:30 | Inpatient (IN) | payer MEDICARE, OTHER ==
--- NOTE | 2023-12-06 20:10 | P.HPOR ---
History of Present Illness H&P Date: 12/06/23 .D:Date: 12/06/23 : 04:46pm .T:Title: *PRE OP ASSESSMENT SPINE SURGICAL RISK AND CLINICAL REVIEW IMPRESSION: It was my pleasure to have seen and examined Tyshawn. I reviewed the patient's clinical syndrome, physical findings, and imaging studies during the appointment today. It is my impression that the patient has a diagnosis of. 1. L3-S1 spondylosis with stenosis 2. L5-S1 spondylolisthesis with stenosis and spondylosis 3. Low back pain 4. Bilateral lower extremity radiculopathy PLAN: SURGICAL RECOMMENDATION - Open L3-S1 decompression with L5-S1 fusion DISCUSSION: - I discussed treatment options in the form of continued conservative measures versus surgical intervention in the form of an open L3-S1 decompression with an L5-S1 fusion due to te patient's symptomatic L3-S1 spondylosis with stenosis and worsening lower extremity radiculopathy. The patient verbally understands all risks and benefits involved with the procedure and elects to proceed. The patient will obtain surgical clearance from his primary care physician and any necessary speciality providers prior to surgery. THERAPIES - Cont with Heat/Ice as warranted - Cont with supplementation Vit D, Vit C, Ca2+, High protein diet - OK for massage or other alternative treatment modalities as able. If it exacerbates your sx do not continue ACTIVITY - Ambulate daily MEDICATIONS - Take as directed IMAGING: -Pt will obtain pre op CT for surgical planning and fine bony detail Spine Surgery Risk Review Mr. Bradley is presenting for evaluation of low back and bilateral lower extremity pain, bilateral lower extremity numbness and tingling. It was my pleasure to have seen and examined Mr. Bradley. In our visit today we have had a chance to go over subjective complaints, physical examination findings and treatments including the natural course history without intervention and various interventional options. The patients imaging demonstrates: MRI Lumbar Spine completed on 05/08/2023 at [facility]: This is reviewed with pt. Demonstrates spondylosis with stenosis L3-S1. There is disc height loss at these levle swith the worst being at L4-5 and L5-S1 with near complete collapse, modic changes II, and severe facet arthroapthy with ligament hypertrophy contri buting to the stenotic features as well of these levels. There is moderate to severe stenosis of L4-S1 with moderate stenosis of L3-4 central and foraminal at these levels. There are no lesions or fractures noted. Decreased LL secondary to the collapse noted. XRay taken on 04/07/2022 of Lumbar Spine at [facility]: - Images re-reviewed with patient L3-S1 spondylosis noted with disc height loss, desiccation and facet arthropathy Old L1 VCF noted. Flattened LL noted. L5-S1 spondylosis severe with foraminal stenosis No other fracture noted No lesions On physical exam, Mr. Bradley demonstrates: A continued constant throbbing and intermittent sharp pain throughout the low back that radiates down into the bilateral lower extremities. He notes worsening numbness and tingling throughout the bilateral leg. The patient notes ongoing dull, ache-like pain around the lateral right hip that radiates inward toward the right buttock. He states he feels his leg pain makes up approximately 60% of is pain and the back is 40% of his pain. He states his symptoms worsen after prolonged walking or standing. He reports experiencing severe sleep disturbances related to his ongoing pain and associated symptoms. I have explained to the patient that as their condition progresses it will cause further neurological deficits and eventual paralysis. Based on the patients imaging, physical exam, and the rapid progression and disabling nature of their symptoms, at this time I recommend surgery in the form of a: Open L3-S1 decompression with L5-S1 fusion. I discussed the risk and benefits of this procedure at length with Mr. Bradley. The patient agreed to considered pursuing the procedure above mentioned. Prior to surgery, she should follow up with her PCP (Cardio, ID, IM etc) for clearance. Questions were invited and answered, and the patient wishes to proceed as outlined below. Currently, I am recommendin.Open L3-S1 decompression with L5-S1 fusion 2.Follow up with PCP for surgical clearance 3.Review of surgical risks and benefits as well as an educational packet on the proposed surgical procedure. Risks: All surgical procedures come with inherent risks, including those related to positioning, anesthesia, intraoperative findings, and postoperative complications. It is important to understand that surgery does not come with any guarantee of a successful outcome as complications and adverse events are always possible. The patient was given a handout in office today discussing the surgical procedure and risks associated with the intervention, both of which were discussed with the patient. These risks include but are not limited to the following: * Experiencing same, different or even worse symptoms in back, neck, arms, or legs compared to before surgery. Requiring further surgery or other forms of treatment presently or at some time in the future at same or other levels of the intended spine surgery. On an extreme but fortunately relatively rare basis severe complication such as blindness, stroke, heart attack, temporary and/or permanent nerve injury, paralysis, coma, or may occur, sometimes without known explanation. Surgical complications may include but are not limited to risk of infection, fluid accumulation in the surgical dissection site, including a seroma or hematoma, that requires additional surgery, wound drainage, bleeding, new numbness or weakness, vision changes/loss, spinal fluid leakage, non-healing and/or infected incision, headaches, difficulty or inability to swallow, hoarseness, hemopneumothorax, pneumothorax, impotence, retrograde ejaculation, vaginal dryness; injury to nerves, spinal cord, blood vessels, lymphatics or other vital organs (i.e., bowel injury, injury to the great vessels); heterotopic bone formation; complications related to the hardware such as screws, rods, cages including misplaced hardware, device failure, instrumentation at the wrong spine level, hardware fracture/breakage, or hardware loosening; vertebral failure of the spinal column above or below the newly placed hardware; retained surgical instrumentations or devices and the need for further surgery. * Medical risks of the planned spine surgery include but are not limited to generalized Infections to the whole body or local areas outside of the surgical site (sepsis), heart attack, bleeding, anaphylaxis, meningitis, seizure, epilepsy, hearing loss, burn wu, laceration of the head or other areas of the body, bruising, hypersensitivity of the skin, bladder over distension; allergic reaction; shoulder injury related to positioning; fat, blood and air clots to other areas of the body like heart, lungs, brain; failure of internal organs such as lungs, kidneys, liver and excessive bleeding. If blood transfusions are necessary, note that transfusions may cause intolerance reactions such as anaphylaxis or other complex reactions. Despite best efforts, the results of spine surgery might not heal in terms of bone, soft tissues such as skin, fascia, ligaments, and joints. Additionally, in order to achieve best possible results, spine surgery may be carried out beyond the initially planned levels and involve decompression, fusion including insertion of hardware at levels other than the original intended area of surgical interest change some portions of the procedure in order to ensure the best possible outcomes. With spine surgery and spinal fusion, there are different off label uses of instrumentation (devices, implants and hardware) as well as biological substances (bone morphogenic proteins, demineralized bone matrix) as well as using extra bone from allograft sources (i.e. cadaver bone) or autograft (iliac crest bone, ribs, or the spine itself). The patient has been given information about these practices and their inherent risks and benefits. [facility] is an educational center that serves as a training facility for neurosurgical and orthopedic [employer] and Nursing students. Physician assistants are medically trained surgical providers who function in the outpatient, inpatient, and operating room setting under the direct supervision of the manju osorio surgeon. [facility] has multiple operating rooms with single and overlapping rooms running daily. They currently function under the required guidelines as produced by the [facility] Finance Committee with regards to the overlapping rooms and will continue to comply with changes to this policy as they occur. The requirements include and are complied with as follows: (1) the critical portions of the overlapping rooms will not occur at the same time, (2) the attending physician will be physically present during the critical portions of the procedure and immediately available during the entire case, and (3) a back-up attending is designated should the primary attending not be immediately available. The patient has had a chance to review all the listed information, has been give n print outs detailing this information, and has had all his/her questions answered to their satisfaction. It was my pleasure to have seen and examined Mr. Bradley. In our visit today we have had a chance to go over my understanding of our patient's current condition, the natural course history without intervention and various interventional options. Questions were invited and answered, and the patient wishes to proceed as outlined above. I have seen and examined the patient for 25 minutes and we have spent more than 50% of the time in repeat and detailed counseling about the patient's condition, its natural course history with out and as much as can be predicted with surgery and re-review of various surgical treatment options. In conclusion, Mr. Bradley requested we proceed with the above suggested surgery and are willing to accept risks and limitations of the suggested surgery as nature of the disease process and our best attempts at treatment for the condition. Thank you again for allowing us to be part of your patient's care. Please don't hesitate to contact me if you have any further questions. FOLLOW UP: POST OP PATIENT EDUCATION: Medications Reviewed: YES In our visit today Mr. Bradley and I have had a chance to go over my understanding of the patient's current condition, the natural course history without intervention and various interventional options. Questions were invited and answered, and the patient wishes to proceed as outlined above. I will be sure to keep you updated after Mr. Bradley returns here for further follow-up. Thank you again for your referral. Please do not hesitate to contact me if you have any further questions. Signed and authenticated by: Lyndon Storey [facility] [address] [facility], [address] [address] This message is confidential, intended only for the named recipient(s) and may contain information that is privileged or exempt from disclosure under applicable law. If you are not the intended recipient(s), you are notified that the dissemination, distribution or copying of this information is strictly prohibited. If you received this message in error, please notify the sender then delete this message. Past Medical History Past Medical History: Chest Pain / Angina, GERD/Reflux, Osteoarthritis (OA), Sleep Apnea/CPAP/BIPAP, Thyroid Disorder Additional Past Medical History / Comment(s): SLEEP APNEA (NO MACHINE), HX S HINGLES. hiatal hernia, COVID 09/01/21, "borderline cholesterol", History of Any Multi-Drug Resistant Organisms: None Reported Past Surgical History: Back Surgery, Cholecystectomy, Heart Catheterization With Stent, Joint Replacement, Orthopedic Surgery Additional Past Surgical History / Comment(s): COLONOSCOPY, RIGHT CARP TUNNEL RELEASE, rt knee replacement x 3, BACK SURGERY x 2(disectomy 05/2021), RT SHOULDER SX Past Anesthesia/Blood Transfusion Reactions: Previous Problems w/ Anesthesia, Family History of Problems w/ Anesthesia Additional Past Anesthesia/Blood Transfusion Reaction / Comment(s): PT PASSES OUT WITH ALL INJECTIONS-UNSURE WHY.(IV's OK),MOTHER -PONV Date of Last Stent Placement:: 11/30/22 Smoking Status: Former smoker - Past Family History Brother(s) Family Medical History: Myocardial Infarction ([place]) Father Family Medical History: Cancer Medications and Allergies Home Medications Medication Instructions Recorded Confirmed Type Ergocalciferol [Vitamin D2 50,000 unit PO HOFFMAN 06/08/16 06/29/23 History (DRISDOL)] Levothyroxine Sodium [Synthroid] 125 mcg PO DAILY 06/08/16 06/29/23 History Pantoprazole [Protonix] 40 mg PO AC-BID 09/15/21 06/29/23 History methocarbamoL 750 mg PO TID PRN 09/15/21 06/29/23 History Calcium Carbonate [Tums] 1,000 mg PO ACHS PRN 11/29/22 06/29/23 History Aspirin 81 mg PO DAILY tab 12/01/22 06/29/23 Rx Atorvastatin [Lipitor] 80 mg PO HS #90 tab 12/01/22 06/29/23 Rx Metoprolol Succinate (ER) [Toprol 12.5 mg PO DAILY #90 tab 12/01/22 06/29/23 Rx XL] Nitroglycerin Sl Tabs [Nitrostat] 0.4 mg SUBLINGUAL Q5M PRN #25 tab 12/01/22 06/29/23 Rx Ticagrelor [Brilinta] 90 mg PO BID #180 tab 12/01/22 06/29/23 Rx Acetaminophen [Tylenol Extra 1,000 mg PO BID PRN 06/29/23 06/29/23 History Strength] Isosorbide Mononitrate ER [Imdur] 30 mg PO DAILY #90 tab 06/29/23 Rx Allergies Allergy/AdvReac Type Severity Reaction Status Date / Time Penicillins Allergy Severe Anaphylaxis Verified 06/27/23 10:10 NF-INJECTIONS AdvReac Severe Anaphylaxis Uncoded 06/27/23 10:10 Physical Examination Osteopathic Statement: *. No significant issues noted on an osteopathic structural exam other than those noted in the History and Physical/Consult.
[2023-12-07 12:00] VITALS: BMI 30.9
[~2023-12-12 09:30] MED LIST changes: -ALPRAZolam 0.25 MG TAB PO PRN; -ALPRAZolam 0.5 MG TAB PO PRN; -ASPIRIN 325 MG TAB PO STA; -ATORVASTATIN 80 MG TAB PO STA; +LIDOCAINE 1% (10MG/ML) FOR IV START INTRADERMA PRN; -NITROGLYCERIN SL TABS 0.4 MG TAB SUBLINGUAL PRN; +ONDANSETRON 4 MG/2 ML VIAL IVP PRN; -SODIUM CHLORIDE 0.9% 1,000 ML in EMPTY BAG 1 BAG IV SCH; +TRANEXAMIC 1,000 MG/100ML-NACL 1,000 MG in SALINE 1 100ML.BAG IVPB PRN
[2023-12-12] MEDS: IV FLUID CONTINUATION 1,000 ML IV ONE ×2 (09:57→10:50)
[2023-12-12] MEDS: ACETAMINOPHEN TAB 500 MG TAB PO PRN (10:35)
[2023-12-12] MEDS: DEXAMETHASONE SOD PHOSPHATE 4 MG/ML 1 ML VIAL IV ONE (10:35)
[2023-12-12] MEDS: LACTATED RINGERS 1,000 ML IV SCH (10:36)
[2023-12-12] MEDS: ONDANSETRON 4 MG/2 ML VIAL IVP ONE (10:36)
[2023-12-12] MEDS: GABAPENTIN 300 MG CAP PO PRN (10:38)
--- NOTE | 2023-12-12 11:24 | P.PN ---
Progress Note - Text Progress Note Date: 12/12/23 Pre-operative Note: L3-S1 Decompressive Laminectomy with L5-S1 Decompression and Fusion Date of Surgery: 12/12/23 ## Diagnosis 1. Lumbar spinal stenosis, L3-S1 2. Lumbar spondylolisthesis, L5-S1 ## Planned Procedure L3-S1 Decompressive Laminectomy with L5-S1 Decompression and Fusion ## Indications for Surgery The patient presents with chronic lower back pain and radicular symptoms consistent with lumbar spinal stenosis and spondylolisthesis. Conservative management including physical therapy, pain management, and epidural steroid injections have failed to provide adequate relief. ## Pre-operative Assessment - Imaging studies (MRI, CT) confirm multilevel lumbar stenosis from L3-S1 and spondylosis with stenosis at L5-S1 - Neurological exam shows neurogenic claudication, LE radiculopathy and weakness - Patient has been cleared for surgery by anesthesia - All necessary pre-operative labs and tests have been completed and reviewed ## Surgical Plan 1. Perform L3-S1 decompressive laminectomy to address multilevel stenosis 2. At L5-S1 level, perform additional decompression and instrumented fusion to address spondylolisthesis 3. Use pedicle screw fixation and interbody fusion technique at L5-S1 ## Risks Discussed with Patient - Infection - Bleeding - Nerve root injury - Dural tear - Failed back syndrome - Adjacent segment disease - Hardware complications - Need for future surgeries ## Informed Consent The patient has been fully informed of the risks, benefits, and alternatives to surgery. All questions have been answered, and informed consent has been obtained. ## Pre-operative Instructions - NPO after midnight before surgery - Preoperative antibiotics to be given 1 hr prior to incision - TXA 2g planned for incision and closure - Preoperative medications given per protocol ## Post-operative Plan 1. Admit to neurosurgical floor for post-operative care 2. Early mobilization with physical therapy 3. Pain management as per protocol 4. Wound care and drain management 5. Discharge planning to begin on post-operative day 1
[2023-12-12] MEDS ORDERED: MAGNESIUM HYDROXIDE 2,400 MG/30 ML CUP PO PRN (11:43)
[2023-12-12] MEDS ORDERED: NA PHOS,M-B/NA PHOS,DI-BA 133 ML ENEMA RECTAL PRN (11:43)
[2023-12-12] MEDS ORDERED: HYDROmorphone 0.5 MG/0.5 ML SYRINGE IVP PRN (11:43)
[2023-12-12] MEDS ORDERED: ONDANSETRON 4 MG/2 ML VIAL IVP PRN (11:43)
[2023-12-12] MEDS ORDERED: HYDROmorphone 1 MG/ML 1 ML SYRINGE IVP PRN (11:43)
[2023-12-12] MEDS ORDERED: bisacodyL 10 MG SUPP RECTAL PRN (11:43)
[2023-12-12] MEDS: THROMBIN (BOVINE) 5,000 UNIT VIAL MISCELLANE ONE (13:27)
[2023-12-12] MEDS: GENTAMICIN 80 MG in SODIUM CHLORIDE 0.9% IRRIGATIO 3,000 ML IRRIGATION ONE (13:29)
[2023-12-12] MEDS: ceFAZolin 3,000 MG in SODIUM CHLORIDE 0.9% IRRIGATIO 3,000 ML IRRIGATION ONE (13:30)
[2023-12-12] MEDS: LACTATED RINGERS 1,000 ML IV ONE ×2 (13:30→16:00)
[2023-12-12] MEDS: VANCOMYCIN 1,000 MG VIAL MISCELLANE ONE ×2 (15:26→15:51)
[2023-12-12] MEDS ORDERED: HYDROmorphone 2 MG/ML 1 ML SYRINGE IVP PRN (16:05)
--- NOTE | 2023-12-12 17:07 | XR ---
Fluoroscopy INDICATION: Pain FINDINGS: Fluoroscopy time: 42.1 seconds. Total dose area product (DAP) in uGy*m?, mGy*cm? (or similar): 13.030 Images obtained: 5. Posterior fixation L4-S1 is evident. Disc spaces are present L4-5 and L5-S1. IMPRESSION: 1. Documentation of fluoroscopy. [facility], Workstation: [facility], 12/12/2023 5:04 PM
[2023-12-12] MEDS: HYDROmorphone 0.5 MG/0.5 ML SYRINGE IVP PRN (17:17)
--- NOTE | 2023-12-12 17:23 | FL ---
EXAMINATION TYPE: FL guidance operating room DATE OF EXAM: 12/12/2023 Comparison: None Clinical History: 'S 63-year-old male M48.061 LUMBAR STENOSIS, M47.26 LUMBAR SPONDYLOSIS FLUOROSCOPY: L3-S1 decompression and fusion. FL 56.1 seconds. DAP [id number]. 4 images sent into PACS, 3 images s canned into PACS. Dr Irene. [facility], , 12/12/2023 5:21 PM
[2023-12-12] MEDS: droPERidol 5 MG/2 ML VIAL IVP ONE (17:43)
[2023-12-12] MEDS: KETOROLAC 15 MG/ML 1 ML VIAL IVP SCH (17:45)
[2023-12-12] MEDS: 0.9% NACL WITH KCL 20 MEQ/L 1,000 ML IV SCH (19:39)
[2023-12-12] MEDS: ACETAMINOPHEN TAB 500 MG TAB PO SCH (19:39)
[2023-12-12] MEDS ORDERED: NITROGLYCERIN SL TABS 0.4 MG TAB SUBLINGUAL PRN (19:47)
--- NOTE | 2023-12-12 19:56 | P.CONS ---
History of Present Illness - Reason for Consult Consult date: 12/12/23 - History of Present Illness History of present illness; Tyshawn Villarreal 63-year-old male with hypothyroidism, GERD, CAD presents for elective L3-S1 decompressive laminectomy and fusion. Patient has chronic history of lower back pain and radicular symptoms consistent with lumbar spinal stenosis and spondylolithiasis. Patient then followed up with orthopedic surgery Dr. Irene outpatient and had planned surgery today. Patient is now postop with no known surgical complications. Patient is laying on side in bed resting with pain at the surgical site. Patient reports absence of fever, chills, weight loss, chest pain, palpitations, diaphoresis, dyspnea, cough, nausea, vomiting, constipation, diarrhea, abdominal pain, weakness, myalgia, dizziness, headache, and dysuria. Internal medicine was consulted for medical management. REVIEW OF SYSTEMS: All systems reviewed, pertinent positives and negatives noted in HPI. All other symptoms are negative. PHYSICAL EXAMINATION: Vitals reviewed GENERAL: No acute distress. Well developed, well nourished. Wound dressing on lower back with drain. Lawrence catheter. HEENT: Pupils are round and equally reacting to light. EOMI. No scleral icterus. Normocephalic, atraumatic. No pharyngeal erythema. No thyromegaly. CARDIOVASCULAR: S1 and S2 present. No murmurs, rubs, or gallops. PULMONARY: Chest is clear to auscultation, no wheezing, rhonchi, or crackles. ABDOMEN: Soft, nontender, nondistended, normoactive bowel sounds. No palpable organomegaly. MUSCULOSKELETAL: No apparent joint swelling and deformities. EXTREMITIES: No apparent cyanosis, clubbing, or pedal edema. NEUROLOGICAL: The patient is alert and oriented x3, Gross neurological examination did not reveal any focal deficits. SKIN: No apparent rashes. Assessment and plan Tyshawn Villarreal 63-year-old male with hypothyroidism, GERD, CAD presents for elective L3-S1 decompressive laminectomy and fusion. #Coronary artery disease, Hx of CABG - Resume Aspirin when cleared by ortho - Resume home Metoprolol Resume home Imdur and Nitrostat as needed - Resume home atorvastatin #Hypothyroidism - Resume home Synthroid #GERD - Resume home pantoprazole #L3-S1 decompressive laminectomy and fusion -Pain management and DVT prophylaxis per primary surgical team F: IV LR at 20 mL/hr E: Replete as needed N: Regular diet DVT ppx: per primary surgical team, mechanical for now due to spine surgery Code status: Full code patient is stable from medical stand point follow up CBC and CMP in AM Dictation was produced using [employer] dictation software. Please excuse any grammatical, word or spelling errors. Past Medical History Past Medical History: Chest Pain / Angina, GERD/Reflux, Osteoarthritis (OA), Sleep Apnea/CPAP/BIPAP, Thyroid Disorder Additional Past Medical History / Comment(s): SLEEP APNEA (NO MACHINE), HX SHINGLES-approx 7 yrs ago. hiatal hernia, COVID 09/01/21 History of Any Multi-Drug Resistant Organisms: None Reported Past Surgical History: Back Surgery, Cholecystectomy, Heart Catheterization, Heart Catheterization With Stent, Joint Replacement, Orthopedic Surgery Additional Past Surgical History / Comment(s): COLONOSCOPY, RIGHT CARP TUNNEL RELEASE, rt knee replacement x 3, BACK SURGERY x 2(disectomy 05/2021), RT SHOULDER SX,heart cath x3,2 heart stents,back surgeries x2 Past Anesthesia/Blood Transfusion Reactions: Previous Problems w/ Anesthesia, Family History of Problems w/ Anesthesia Additional Past Anesthesia/Blood Transfusion Reaction / Comm: PT PASSES OUT WITH ALL INJECTIONS-UNSURE WHY.(IV's OK),MOTHER -PONV. no hx blood transfusion Date of Last Stent Placement:: 11/30/22,01/05 Smoking Status: Former smoker - Past Family History Brother(s) Family Medical History: Myocardial Infarction ([place]) Father Family Medical History: Cancer, Coronary Artery Disease (CAD), Myocardial Infarction ([place]) Additional Family Medical History / Comment(s): CABG 4 vessel Medications and Allergies Home Medications Medication Instructions Recorded Confirmed Type Ergocalciferol [Vitamin D2 50,000 unit PO HOFFMAN 06/08/16 12/12/23 History (DRISDOL)] Levothyroxine Sodium [Synthroid] 125 mcg PO QAM 06/08/16 12/12/23 History Pantoprazole [Protonix] 40 mg PO AC-BID 09/15/21 12/12/23 History Calcium Carbonate [Tums] 1,000 mg PO ACHS PRN 11/29/22 12/12/23 History Aspirin 81 mg PO DAILY tab 12/01/22 12/12/23 Rx Atorvastatin [Lipitor] 80 mg PO HS #90 tab 12/01/22 12/12/23 Rx Nitroglycerin Sl Tabs [Nitrostat] 0.4 mg SUBLINGUAL Q5M PRN #25 tab 12/01/22 12/12/23 Rx Acetaminophen [Tylenol Extra 1,000 mg PO BID PRN 06/29/23 12/12/23 History Strength] Isosorbide Mononitrate ER [Imdur] 30 mg PO QAM 12/07/23 12/12/23 History Metoprolol Succinate (ER) [Toprol 25 mg PO QAM 12/07/23 12/12/23 History XL] Ticagrelor [Brilinta] 90 mg PO BID 12/07/23 12/12/23 History Allergies Allergy/AdvReac Type Severity Reaction Status Date / Time Penicillins Allergy Severe Anaphylaxis Verified 12/12/23 10:00 NF-INJECTIONS AdvReac Severe Anaphylaxis-see Uncoded 12/12/23 10:00 comment Physical Exam Vitals: Vital Signs Temp Pulse Resp BP Pulse Ox 12/12/23 18:25 78 16 108/61 95 12/12/23 18:08 86 16 105/60 96 12/12/23 17:53 79 16 110/68 97 12/12/23 17:38 68 16 107/60 98 12/12/23 17:23 60 16 102/56 98 12/12/23 17:08 75 16 107/64 96 12/12/23 16:53 78 16 106/60 98 12/12/23 16:38 97 F L 49 L 16 96/55 94 L 12/12/23 16:08 86 16 105/60 95 12/12/23 10:02 97.7 F 67 16 105/56 97 Intake and Output 12/12/23 12/12/23 12/12/23 06:59 14:59 22:59 Intake Total 2452 500 Output Total 980 Balance 2452 -480 Intake: IV 2452 500 Output: Urine 500 Estimated Blood Loss 480 Other: Weight 104.6 kg Assessment and Plan Assessment: I have seen and evaluated the patient today. I Discussed the case with the resident and agree with the resident's findings I edited the assessment and plan as necessary as documented in the resident's note.
[2023-12-12] MEDS: ATORVASTATIN 80 MG TAB PO SCH (21:34)
[2023-12-13] MEDS: HYDROcodone/APAP 7.5-325MG 1 EACH TAB PO PRN (04:18)
[2023-12-13] MEDS: CYCLOBENZAPRINE 10 MG TAB PO PRN (04:18)
[2023-12-13] MEDS: LEVOTHYROXINE 125 MCG TAB PO SCH (05:27)
[2023-12-13] MEDS: PANTOPRAZOLE 40 MG TABLET PO SCH (05:27)
--- NOTE | 2023-12-13 07:55 | P.OP ---
Date of Procedure: 12/12/23 Preoperative Diagnosis: 1. L3-S1 spondylosis with stenosis ICD-10 code: M47.16 (Other spondylosis with radiculopathy, lumbar region) 2. L5-S1 spondylolisthesis with stenosis and spondylosis ICD-10 code: M43.16 (Spondylolisthesis, lumbar region) Additional code: M48.06 (Spinal stenosis, lumbar region) 3. Low back pain ICD-10 code: M54.5 (Low back pain) 4. Bilateral lower extremity radiculopathy ICD-10 code: M54.16 (Radiculopathy, lumbar region) Postoperative Diagnosis: 1. L3-S1 spondylosis with stenosis ICD-10 code: M47.16 (Other spondylosis with radiculopathy, lumbar region) 2. L5-S1 spondylolisthesis with stenosis and spondylosis ICD-10 code: M43.16 (Spondylolisthesis, lumbar region) Additional code: M48.06 (Spinal stenosis, lumbar region) 3. Low back pain ICD-10 code: M54.5 (Low back pain) 4. Bilateral lower extremity radiculopathy ICD-10 code: M54.16 (Radiculopathy, lumbar region) Procedure(s) Performed: - 14173: Lumbar spine fusion combined posterior or posterolateral technique with posterior interbody technique including laminectomy and/or discectomy sufficient to prepare interspace (other than for decompression), single interspace and segment; lumbar (L5-S1) - 42242: Each additional interspace and segment (List separately in addition to code for primary procedure) (L4-5) -13900: instrumentation (L4-S1) - 48919: Insertion of interbody biomechanical device(s) (e.g., synthetic cage, mesh) with integral anterior instrumentation for device anchoring (e.g., screws, flanges), when performed, to intervertebral disc space in conjunction with interbody arthrodesis, each interspace (L4-5, L5-S1) - 21395: Laminectomy, facetectomy and foraminotomy (unilateral or bilateral with decompression of spinal cord, cauda equina and/or nerve root[s], [eg, spinal or lateral recess stenosis]), single vertebral segment; (lumbar L3-4) - 65465: Each additional segment, cervical, thoracic, or lumbar (List separately in addition to code for primary procedure) (L4-5, L5-S1) - +73912: Stereotactic computer-assisted (navigational) procedure; spinal (List separately in addition to code for primary procedure) use of IONM all screws testing >12 mA Implants: -ALICIA EVEREST RODS AND SCREWS -GLOBUS SABLE CAGES 9-14 15 DEG; 10-17 15 DEG, LONG -MAGNATOS, AUTOGRAFT, DBM, ARTHROCELL, ALLOCELL. Anesthesia: GETA Surgeon: [employer] Coordinator #1: Flavio Rogers (was present and assisted with all aspects of the case from positioning to dressing placement) Estimated Blood Loss (ml): 400 IV fluids (ml): 2,000 Urine output (ml): 500 Pathology: none sent Condition: stable Disposition: PACU Indications for Procedure: Mr. Bradley is presenting for evaluation of low back and bilateral lower extremity pain, bilateral lower extremity numbness and tingling. It was my pleasure to have seen and examined Mr. Bradley. In our visit today we have had a chance to go over subjective complaints, physical examination findings and treatments including the natural course history without intervention and various interventional options. The patients imaging demonstrates: MRI Lumbar Spine completed on 05/08/2023 at [facility]: This is reviewed with pt. Demonstrates spondylosis with stenosis L3-S1. There is disc height loss at these levle swith the worst being at L4-5 and L5-S1 with near complete collapse, modic changes II, and severe facet arthroapthy with ligament hypertrophy contributing to the stenotic features as well of these levels. There is moderate to severe stenosis of L4-S1 with moderate stenosis of L3-4 central and foraminal at these levels. There are no lesions or fractures noted. Decreased LL secondary to the collapse noted. XRay taken on 04/07/2022 of Lumbar Spine at [facility]: - Images re-reviewed with patient L3-S1 spondylosis noted with disc height loss, desiccation and facet arthropathy Old L1 VCF noted. Flattened LL noted. L5-S1 spondylosis severe with foraminal stenosis No other fracture noted No lesions On physical exam, Mr. Bradley demonstrates: A continued constant throbbing and intermittent sharp pain throughout the low back that radiates down into the bilateral lower extremities. He notes worsening numbness and tingling throughout the bilateral leg. The patient notes ongoing dull, ache-like pain around the lateral right hip that radiates inward toward the right buttock. He states he feels his leg pain makes up approximately 60% of is pain and the back is 40% of his pain. He states his symptoms worsen after prolonged walking or standing. He reports experiencing severe sleep disturbances related to his ongoing pain and associated symptoms. I have explained to the patient that as their condition progresses it will cause further neurological deficits and eventual paralysis. Based on the patients imaging, physical exam, and the rapid progression and disabling nature of their symptoms, at this time I recommend surgery in the form of a: Open L3-S1 decompression with L5-S1 fusion. I discussed the risk and benefits of this procedure at length with Mr. Bradley. The patient agreed to considered pursuing the procedure above mentioned. Prior to surgery, she should follow up with her PCP (Cardio, ID, IM etc) for clearance. Questions were invited and answered, and the patient wishes to proceed as outlined below. Currently, I am recommendin.Open L3-S1 decompression with L5-S1 fusion Description of Procedure: L3-S1 open Decompression and L4-S1 fusion (parvez) The patient was seen and examined in the preoperative area. All preoperative protocols were followed. Informed consent was obtained, risks and benefits of the procedure were discussed at length. Risks including bleeding infection damage to the surrounding tissue and risk of reoperation were discussed with the patient. Risk of anesthesia up to and including was discussed with the patient. These are outlined in the risk review. They were willing to accept these risks and all the risks of surgery. The patient was given a weight-based dose of antibiotics in the form of 2 g Ancef. The patient was seen and evaluated by the anesthesia team who deemed them fit for surgery. The site was marked, the patient was willing to proceed with the procedure. The patient was transferred to the operative suite by the Department of anesthesia. They were then drifted off to sleep by the department anesthesia and GETA was performed. The patient tolerated this well. Lawrence catheter was placed by nursing staff, a-traumatically. Once confirmation of lines and ventilation the patient was transferred to a prone Nima table very carefully. All bony prominences including wrists, elbows, axilla, chest, hips, and thighs, and feet were padded very well. Special attention was paid to the genitalia, and these were padded accordingly. SCDs were placed on bilateral lower extremities and were connected. Arms were well padded and placed on arm boards up and out in the 90/90 position. Once in position, again we confirmed good ventilation capabilities and that lines were running appropriately. The patients Lumbar spine was then exposed. 1010s were placed outlining the incision site. Standard alcohol was used to clean the incision site and allowed to dry. C-arm was used to needle localize the pedicles at L4-S1 and bio-елена the patient and confirm level for incision which was marked with a skin marker. Operative briefing was performed with all teams and everyone in agreement to proceed. The patient was then prepped and draped in a normal sterile fashion. Timeout was then performed, and all parties agreed with the procedure to be performed. Midline skin incision was made over the previously bio-marked area and dissection taken down over the SP of L3-S1. L4-S1 was taken out over facet joints and TPs and a penfield 4 used to елена the L4 pedicle. Lateral image used to confirm levels. Once confirmed, screws were proceeded to be placed b/l at pedicles from L4-S1 using Rodati Navigation. An SP clamp was used, 3D C arm spin obtained and confirmed to be accurate. Once this was confirmed screws were placed using a navigated yonis, navigated awl-tap and navigated electric pile driver operator. Once screws were placed they were confirmed to be in good position using AP and Lateral fluoroscopy. The wound was then irrigated. Screws were tested and all tested above 20 mA. We then proceeded to decompression and cage placement. Attention was then turned to interbody fusion at L5-S1. Bilateral laminectomy, complete facetectomy and foraminotomy performed at L5-S1 using high speed yonis and Kerrison rongeur. The ligamentum was removed and the dural sac decompressed. Exiting and traversing roots visualized and decompressed. Neural elements were then protected, and disc space accessed with an osteotome. Sequential shaving then done under lateral imaging and complete discectomy performed using rodrick, pituitary and curette. Once good bleeding endplates accomplished and good height catholic with trials, a combination of autograft, allograft and synthetic placed anterior in the disc space. The cage was then selected and impacted into place under lateral imaging. The cage was then expanded restoring height, lordosis and alignment. The cage was backfilled with bone graft through a funnel. The escort vehicle driver was removed and the area insp ected. Good cage placement, stable cage and no injuries. Area was irrigated copiously, and meticulous hemostasis achieved. The tubular retractor was then removed under direct visualization. Attention was then turned to interbody fusion at L4-5. Bilateral laminectomy, complete facetectomy and foraminotomy performed at L4-5 using high speed yonis and Kerrison rongeur. The ligamentum was removed and the dural sac decompressed. Exiting and traversing roots visualized and decompressed. Neural elements were then protected, and disc space accessed with an osteotome. Sequential shaving then done under lateral imaging and complete discectomy performed using rodrick, pituitary and curette. Once good bleeding endplates accomplished and good height catholic with trials, a combination of autograft, allograft and synthetic placed anterior in the disc space. The cage was then selected and impacted into place under lateral imaging. The cage was then expanded restoring height, lordosis and alignment. The cage was backfilled with bone graft through a funnel. The escort vehicle driver was removed and the area inspected. Good cage placement, stable cage and no injuries. Area was irrigated copiously, and meticulous hemostasis achieved. The wound and disc spaces were irrigated and meticulous hemostasis achieved. We then further decompressed at L3-4 with high speed yonis, kerrisons, rongure, curette for complete neural decompression with bilateral laminectomy, partial medial facetectomy and foraminotomy. The roots were palpated with ball tip probe and there was good decompression noted at this level as well. There was no instability at this level and so hardware was not placed here. Meticulous hemostasis achieved. The wound was then irrigated. Rods were then sized and selected and placed into S1 screws b/l. Set screws locked these in place and then sequentially reduced into L4 and L5 b/l for alignment catholic. This was accomplished. Set screws were then all placed and final tightened. A cross link was selected and placed and final tightened. TPs were then decorticated with a high speed yonis. The wound was irrigated with 3L Ancef irrigation, 3L gentamicin irrigation and 3L NSS. Surgery was placed over the dura. Autograft and MagnatOs then placed in the posterolateral gutters and impacted into place. Deep drain placed and secured to the skin. Final images confirmed good placement of hardware and good reduction of listhesis as well as catholic of height and lordosis. Fascia was then closed with #1 PDS. Deep subq closed with 0 Vicryl. Superficial subq closed with 2-0 Vicryl and skin with eliza. Wound edges approximated very well. Wound was then cleaned with alcohol and dried. Wounds dressed with Optifoam dressings. The patient was then transferred off the table back to their hospital bed a- traumatically. They were extubated by the department of anesthesia. They were then transferred to PACU in stable condition having tolerated the procedure with no complications.
[2023-12-13 08:20] LABS: Basophils # (A) 0.03 X 10*3/uL (0.00-0.10); Basophils % (A) 0.3 %; Eosinophils # (A) 0.01 X 10*3/uL (0.04-0.35); Eosinophils % (A) 0.1 %; HCT 37.9 % (39.6-50.0); HGB 12.8 g/dL (13.0-17.0); Lymphocytes # (A) 1.24 X 10*3/uL (0.90-5.00); MCH 31.2 pg (27.0-32.0); MCHC 33.8 g/dL (32.0-37.0); MCV 92.4 FL (80.0-97.0); Mean Platelet Volume 10.4 FL (9.5-12.2); Monocytes # (A) 0.76 X 10*3/uL (0.20-1.00); Monocytes % (A) 6.7 %; NRBC Per 100 WBC 0 X 10*3/uL (0.00-0.01); Neutrophils # (A) 9.19 X 10*3/uL (1.80-7.70); Neutrophils % (A) 81.5 %; Platelet Count 166 X 10*3/uL (140-440); RDW 12.2 % (11.5-14.5); WBC 11.28 X 10*3/uL (4.50-10.00)
[2023-12-13 08:41] LABS: BUN/Creat Ratio 15.09 Ratio (12.00-20.00); Blood Urea Nitrogen 16.6 mg/dL (9.0-27.0); Carbon Dioxide 24.4 mmol/L (21.6-31.8); Chloride 103 mmol/L (96-109); Glucose 111 mg/dL (70-110); Potassium 4.6 mmol/L (3.5-5.5); Sodium 136 mmol/L (135-145)
[2023-12-13 08:42] LABS: Calcium 8.4 mg/dL (8.7-10.3)
[2023-12-13] MEDS: METOPROLOL SUCCINATE (ER) 25 MG TAB.ER.24H PO SCH (08:48)
[2023-12-13] MEDS: SENNOSIDES-DOCUSATE SODIUM 1 EACH TAB PO SCH (08:48)
[2023-12-13] MEDS: ISOSORBIDE MONONITRATE ER 30 MG TAB.ER.24H PO SCH (08:48)
[2023-12-13] MEDS: polyethylene glycoL 3350 17 GM POWD.PACK PO SCH (08:48)
[2023-12-13] MEDS ORDERED: ASPIRIN 81 MG PO SCH (09:00)
--- NOTE | 2023-12-13 09:19 | P.PN ---
Subjective Progress Note Date: 12/13/23 Principal diagnosis: 1. L3-S1 spondylosis with stenosis 2. L5-S1 spondylolisthesis with stenosis and spondylosis 3. Low back pain 4. Bilateral lower extremity radiculopathy Patient seen and examined this morning. Patient is sitting up in chair at bedside. Patient reports his pain is managed on current regimen. He does state that he notices improvement of his upper lower extremity radiculopathy since the procedure. Informed patient that physical therapy will begin to work with him later this morning. Patient verbalizes understanding and is looking forward to working with them and progressing with his recovery. Patient does state that he will need a walker at discharge, prescription has been placed in chart. Patient does have LSO brace that was issued from office. Surgical incision to the lumbar spine, dressing is clean dry and intact with Hemovac present. Leon catheter is present and may be discontinued today. No acute concerns. Continue to encourage the use of incentive spirometer 10x/hr while awake. Objective - Vital Signs Vital signs: Vital Signs Temp 97.9 F 12/13/23 07:30 Pulse 84 12/13/23 07:30 Resp 15 12/13/23 07:30 BP 119/70 12/13/23 07:30 Pulse Ox 98 12/13/23 07:30 FiO2 Intake & Output 12/12/23 12/13/23 12/13/23 18:59 06:59 18:59 Intake Total 2952 800 Output Total 980 610 Balance 1972 190 Weight 104.6 kg 104.6 kg Intake: IV 2952 Intake, IV Titration 800 Amount 0.9% NaCl with KCl 20 Meq 600 /l 1,000 ml @ 50 mls/hr IV .Q20H PEARL Rx#: [id number] ceFAZolin 2 gm In Sodium 200 Chloride 0.9% 50 ml @ 100 mls/hr IVPB Q8H PEARL Rx#: [id number] Output: Drainage 110 Back 110 Urine 500 500 Estimated Blood Loss 480 Other: Voiding Method Indwelling Catheter - Exam Physical Examination General: The patient is awake and alert, in no acute distress Skin: Skin is warm and dry with no obvious rashes or lesions. Surgical incision to the lumbar spine, dressing is clean dry and intact with Hemovac present. Neck: The neck is supple, there is no tenderness and ROM intact. Respiratory: Respirations are non-labored, breath sounds are equal. Gastrointestinal: Soft, non-distended, non-tender abdomen. Back: There is no tenderness to palpation in the midline, paralumbar, parathoracic or buttocks region. There is no obvious deformity . Musculoskeletal: ROM limited secondary to pain and stiffness from surgical procedure. Right: Shoulder abduction 5/5, elbow flexors 5/5, wrist dorsiflexors 5/5. finger abductor 5/5, television maintenance worker 5/5, hip flexor 4/5, knee flexor 4/5, ankle dorsiflexor 5/5, ankle plantarflexion 5/5 and extensor hallucis 5/5. Left: Shoulder abduction 5/5, elbow flexors 5/5, wrist dorsiflexors 5/5. finger abductor 5/5, television maintenance worker 5/5, hip flexor 4/5, knee flexor 4/5, ankle dorsiflexor 5/5, ankle plantarflexion 5/5 and extensor hallucis 5/5. Neurological: CN 2-12 intact. There are no obvious motor or sensory deficits. Movement and coordination equal and intact. Sensory exam to light touch intact C5-T1 and intact from L2-S1. Reflexes 2/4 in bilateral upper and lower extremities. Negative Hoffmans, babinski, and clonus signs. Psychiatric: Cooperative, appropriate mood & affect, normal judgment. - Labs CBC & Chem 7: 12/13/23 03:17 12/13/23 03:17 Labs: Abnormal Lab Results - Last 24 Hours (Table) 12/13/23 Range/Units 03:17 WBC 11.28 H (4.50-10.00) X 10*3/uL RBC 4.10 L (4.40-5.60) X 10*6/uL Hgb 12.8 L (13.0-17.0) g/dL Hct 37.9 L (39.6-50.0) % Immature Gran # 0.05 H (0.00-0.04) X 10*3/uL Neutrophils # 9.19 H (1.80-7.70) X 10*3/uL Eosinophils # 0.01 L (0.04-0.35) X 10*3/uL Assessment and Plan Assessment: Post-Op day 1 : L3-S1 decompression with L5-S1 fusion Plan: -Appreciate cisco consultant and team management. -Activity: Ambulate QID, OOB all meals, up and about, limit lifting bending twisting to less than 5 lbs. Use walker or cane if needed for stability. -Daily PT/OT, increase ambulation strength and balance. -Brace when up and about, not needed in bed or chair -Pain control: Adequate at this time -Meds: reviewed -GI ppx: senna, Miralax -DC leon this morning -DVT PPX: Aspirin 81mg daily -Hygiene: Shower today. Maintain dressing clean and dry. Meticulous cleaning after BMs away from the incision site -Drains: Maintain for now. Continue to monitor and record output q shift. -Encourage IS 10x/hr -Dispo: Anticipate discharge home tomorrow with homecare *I reviewed and discussed this case with my attending Dr. Irene, whom has reviewed this chart and films and is in agreement with assessment and plan of care as outlined above. I have personally seen and examined the patient, performed the documentation and the assessment and plan as written. Number of minutes spent on the visit: 20m.
--- NOTE | 2023-12-13 10:45 | CT ---
EXAMINATION TYPE: CT lumbar spine wo con CT DLP: 1423.6 mGycm, Automated exposure control for dose reduction was used. DATE OF EXAM: 12/13/2023 10:34 AM COMPARISON: Lumbar spine fluoroscopic images 12/12/2023, MRI lumbar spine 08/15/2018. CLINICAL INDICATION:Male, 63 years old with history of s/p lumbar fusion; PHH, S/P lumbar fusion TECHNIQUE: Multiple axial images were obtained from the midportion of T11 through the sacroiliac shobha nts. Soft tissue and bone windows in coronal and sagittal planes were obtained and reviewed. Contrast used: none. Oral contrast used: none. FINDINGS: Postsurgical changes from L4 through S1 fusion with bilateral pedicle screws and rods and disc spacer s. Laminectomy changes at these levels. Surrounding soft tissue edema and gas identified. Midline pos terior back superficial skin eliza identified. Hardware appears intact with appropriate alignment. This creates streak artifact which limits evaluation. No significant central canal stenosis or sizabl e organized fluid collection at the surgical site within the limitations from streak artifact. Right posterior back drainage catheter identified with tip terminating in the surgical bed at the L5-S1 lev el posteriorly. Anterior wedging of the vertebral body with prominent Schmorl's node involving the dent perior endplate. Additional Schmorl's nodes involving the superior endplates of the T11 and T12 verte bral bodies. Multilevel anterior osteophytosis. No acute fracture. Appropriate alignment of the verte bral bodies. Broad-based disc bulge with mild effacement of the anterior thecal sac at L3-L4. Bilateral facet arth ropathy L3-L4. Results and mild bilateral neural foraminal stenosis. Broad-based disc bulge with mild effacement of the anterior thecal sac at L2-L3. Bilateral facet arth ropathy this level without significant neural foraminal stenosis. Broad-based disc bulge with mild effacement of the anterior thecal sac at L1-L2. Bilateral facet arth ropathy this level without significant neural foraminal stenosis. IMPRESSION: 1. Postsurgical changes from posterior fusion L5-S1. Hardware appears intact with appropriate alignm ent. 2. Multilevel degenerative disease and facet arthropathy of the upper lumbar spine. [facility], , 12/13/2023 10:43 AM
--- NOTE | 2023-12-13 16:01 | P.PN ---
Subjective Progress Note Date: 12/13/23 Hospital course: Tyshawn Villarreal 63-year-old male with hypothyroidism, GERD, CAD presents for elective L3-S1 decompressive laminectomy and fusion. It is a postop day 1. Patient has chronic history of lower back pain and radicular symptoms consistent with lumbar spinal stenosis and spondylolithiasis. Patient then followed up with orthopedic surgery Dr. Irene outpatient and had planned surgery today. Patient is now postop with no known surgical complications. Subjective: Patient seen and examined at the bedside. No acute events overnight. Patient sitting upright in chair. All Systems reviewed and pertinent positives and negatives noted in HPI, all other symptoms are negative Objective: Vital signs reviewed. PHYSICAL EXAMINATION: Vitals reviewed GENERAL: No acute distress. Well developed, well nourished. Wound dressing on lower back with drain. Lawrence catheter. Hemovac present. HEENT: Pupils are round and equally reacting to light. EOMI. No scleral icterus. Normocephalic, atraumatic. No pharyngeal erythema. No thyromegaly. CARDIOVASCULAR: S1 and S2 present. No murmurs, rubs, or gallops. PULMONARY: Chest is clear to auscultation, no wheezing, rhonchi, or crackles. ABDOMEN: Soft, nontender, nondistended, normoactive bowel sounds. No palpable organomegaly. MUSCULOSKELETAL: No apparent joint swelling and deformities. EXTREMITIES: No apparent cyanosis, clubbing, or pedal edema. NEUROLOGICAL: The patient is alert and oriented x3, Gross neurological examination did not reveal any focal deficits. SKIN: No apparent rashes. Data reviewed today: Labs: WBC 11.28, hemoglobin 12.8, hematocrit 37.9, platelet count 166, sodium 136, potassium 4.6, chloride 103, bicarb 24.4, BUN 16.6, creatinine 1.1, glucose 111, calcium 8.4 Images: No new imaging Assessment and Plan: 63-year-old male with hypothyroidism, GERD, CAD presents for elective L3-S1 decompressive laminectomy and fusion. Postop day 1. #L3-S1 decompressive laminectomy and fusion -Pain management and DVT prophylaxis per primary surgical team #Leukocytosis, likely reactive WBC 11.28 Continue monitor CBC #Acute blood loss anemia likely postoperative Baseline hemoglobin 6.6 Current hemoglobin 12.8 Transfuse if hemoglobin less than 7 Continue monitor CBC #Hyperglycemia, likely reactive Serum glucose 111 Continue monitor glucose level #Coronary artery disease, Hx of CABG -Continue with aspirin, metoprolol, Imdur and Nitrostat as needed -Continue atorvastatin Hold Brilinta #Hypothyroidism - c/w home Synthroid #GERD - c/w home pantoprazole F: IV LR at 20 mL/hr E: Replete as needed N: Regular diet DVT ppx: per primary surgical team, mechanical for now due to spine surgery Code status: Full code Thank you for allowing us to participate in the care of this pleasant patient. Do not hesitate to contact us with questions. Someone can be reached from the [facility] hospitalist group all hours of the day at [phone] or via [employer]. I have seen and evaluated the patient today. Discussed with the resident and agree with the residents finding and plan as documented in the resident's note. Changes highlighted in blue font. Objective - Vital Signs Vital signs: Vital Signs Temp 98.2 F 12/13/23 13:49 Pulse 72 12/13/23 13:49 Resp 16 12/13/23 13:49 BP 124/72 12/13/23 13:49 Pulse Ox 96 12/13/23 13:49 FiO2 Intake & Output 12/12/23 12/13/23 12/13/23 18:59 06:59 18:59 Intake Total 2952 800 Output Total 980 610 Balance 1972 190 Weight 104.6 kg 104.6 kg Intake: IV 2952 Intake, IV Titration 800 Amount 0.9% NaCl with KCl 20 Meq 600 /l 1,000 ml @ 50 mls/hr IV .Q20H PEARL Rx#: [id number] ceFAZolin 2 gm In Sodium 200 Chloride 0.9% 50 ml @ 100 mls/hr IVPB Q8H PEARL Rx#: [id number] Output: Drainage 110 Back 110 Urine 500 500 Estimated Blood Loss 480 Other: Voiding Method Indwelling Catheter Indwelling Catheter - Labs CBC & Chem 7: 12/13/23 03:17 12/13/23 03:17 Labs: Abnormal Lab Results - Last 24 Hours (Table) 12/13/23 12/13/23 Range/Units 03:17 03:17 WBC 11.28 H (4.50-10.00) X 10*3/uL RBC 4.10 L (4.40-5.60) X 10*6/uL Hgb 12.8 L (13.0-17.0) g/dL Hct 37.9 L (39.6-50.0) % Immature Gran # 0.05 H (0.00-0.04) X 10*3/uL Neutrophils # 9.19 H (1.80-7.70) X 10*3/uL Eosinophils # 0.01 L (0.04-0.35) X 10*3/uL Glucose 111 H (70-110) mg/dL Calcium 8.4 L (8.7-10.3) mg/dL
[2023-12-13] MEDS: ASPIRIN 81 MG PO SCH (16:59)
--- NOTE | 2023-12-14 07:49 | P.PN ---
Subjective Progress Note Date: 12/14/23 Principal diagnosis: 1. L3-S1 spondylosis with stenosis 2. L5-S1 spondylolisthesis with stenosis and spondylosis 3. Low back pain 4. Bilateral lower extremity radiculopathy Patient seen and examined this morning. Patient is sitting up in chair at bedside. He does report that his pain is managed on current regimen. Surgical incision to the lumbar spine, dressing is clean dry and intact with Hemovac present. Upon entering room this morning Hemovac was not compressed 90 mL output overnight. Drain has been compressed, pending output at lunch it may possibly be discontinued. patient reports that he worked with physical therapy yesterday and tolerated activity well. Patient is hoping for discharge home later today. We will reassess this afternoon. No acute concerns. Objective - Vital Signs Vital signs: Vital Signs Temp 98.1 F 12/14/23 01:50 Pulse 67 12/14/23 01:50 Resp 16 12/14/23 01:50 BP 116/70 12/14/23 01:50 Pulse Ox 95 12/14/23 01:50 FiO2 Intake & Output 12/13/23 12/14/23 12/14/23 18:59 06:59 18:59 Intake Total 100 Output Total 160 Balance -60 Intake: Intake, IV Titration 100 Amount ceFAZolin 2 gm In Sodium 100 Chloride 0.9% 50 ml @ 100 mls/hr IVPB Q8H [facility] Rx#: [id number] Output: Drainage 160 Back 160 Other: Voiding Method Indwelling Catheter Toilet - Exam Physical Examination General: The patient is awake and alert, in no acute distress Skin: Skin is warm and dry with no obvious rashes or lesions. Surgical incision to the lumbar spine, dressing is clean dry and intact with Hemovac present. Neck: The neck is supple, there is no tenderness and ROM intact. Respiratory: Respirations are non-labored, breath sounds are equal. Gastrointestinal: Soft, non-distended, non-tender abdomen. Back: There is no tenderness to palpation in the midline, paralumbar, parathoracic or buttocks region. There is no obvious deformity . Musculoskeletal: ROM limited secondary to pain and stiffness from surgical procedure. Right: Shoulder abduction 5/5, elbow flexors 5/5, wrist dorsiflexors 5/5. finger abductor 5/5, manager mobility 5/5, hip flexor 4/5, knee flexor 4/5, ankle dorsiflexor 5/5, ankle plantarflexion 5/5 and extensor hallucis 5/5. Left: Shoulder abduction 5/5, elbow flexors 5/5, wrist dorsiflexors 5/5. finger abductor 5/5, manager mobility 5/5, hip flexor 4/5, knee flexor 4/5, ankle dorsiflexor 5/5, ankle plantarflexion 5/5 and extensor hallucis 5/5. Neurological: CN 2-12 intact. There are no obvious motor or sensory deficits. Movement and coordination equal and intact. Sensory exam to light touch intact C5-T1 and intact from L2-S1. Reflexes 2/4 in bilateral upper and lower extremities. Negative Hoffmans, babinski, and clonus signs. Psychiatric: Cooperative, appropriate mood & affect, normal judgment. - Labs CBC & Chem 7: 12/13/23 03:17 12/13/23 03:17 Labs: Abnormal Lab Results - Last 24 Hours (Table) 12/13/23 12/13/23 Range/Units 03:17 03:17 WBC 11.28 H (4.50-10.00) X 10*3/uL RBC 4.10 L (4.40-5.60) X 10*6/uL Hgb 12.8 L (13.0-17.0) g/dL Hct 37.9 L (39.6-50.0) % Immature Gran # 0.05 H (0.00-0.04) X 10*3/uL Neutrophils # 9.19 H (1.80-7.70) X 10*3/uL Eosinophils # 0.01 L (0.04-0.35) X 10*3/uL Glucose 111 H (70-110) mg/dL Calcium 8.4 L (8.7-10.3) mg/dL Assessment and Plan Assessment: Post-Op day 2 : L3-S1 decompression with L5-S1 fusion Plan: -Appreciate pharmacy consultant and team management. -Activity: Ambulate QID, OOB all meals, up and about, limit lifting bending twisting to less than 5 lbs. Use walker or cane if needed for stability. -Daily PT/OT, increase ambulation strength and balance. -Brace when up and about, not needed in bed or chair -Pain control: Adequate at this time -Meds: reviewed -GI ppx: senna, Miralax -DC edward this morning -DVT PPX: Aspirin 81mg daily -Hygiene: Shower today. Maintain dressing clean and dry. Meticulous cleaning after BMs away from the incision site -Drains: Maintain for now. Continue to monitor and record output q shift. -Encourage IS 10x/hr -Dispo: Anticipate discharge home with homecare later today versus tomorrow 12/15/2023 *I reviewed and discussed this case with my attending Dr. Irene, whom has reviewed this chart and films and is in agreement with assessment and plan of care as outlined above. I have personally seen and examined the patient, performed the documentation and the assessment and plan as written. Number of minutes spent on the visit: 20m.
--- NOTE | 2023-12-14 12:49 | P.PN ---
Subjective Progress Note Date: 12/14/23 Hospital course: Tyshawn Villarreal 63-year-old male with hypothyroidism, GERD, CAD presents for elective L3-S1 decompressive laminectomy and fusion. It is a postop day 2. Patient has chronic history of lower back pain and radicular symptoms consistent with lumbar spinal stenosis and spondylolithiasis. Patient then followed up with orthopedic surgery Dr. Irene outpatient and had planned surgery today. Patient is now postop with no known surgical complications. Subjective: Patient seen and examined at the bedside. No acute events overnight. Patient sitting upright in chair. All Systems reviewed and pertinent positives and negatives noted in HPI, all other symptoms are negative Objective: Vital signs reviewed. PHYSICAL EXAMINATION: Vitals reviewed GENERAL: No acute distress. Well developed, well nourished. Wound dressing on lower back with drain. Lawrence catheter. Hemovac present. HEENT: Pupils are round and equally reacting to light. EOMI. No scleral icterus. Normocephalic, atraumatic. No pharyngeal erythema. No thyromegaly. CARDIOVASCULAR: S1 and S2 present. No murmurs, rubs, or gallops. PULMONARY: Chest is clear to auscultation, no wheezing, rhonchi, or crackles. ABDOMEN: Soft, nontender, nondistended, normoactive bowel sounds. No palpable organomegaly. MUSCULOSKELETAL: No apparent joint swelling and deformities. EXTREMITIES: No apparent cyanosis, clubbing, or pedal edema. NEUROLOGICAL: The patient is alert and oriented x3, Gross neurological examination did not reveal any focal deficits. SKIN: No apparent rashes. Data reviewed today: Labs: No new labs Images: No new imaging Assessment and Plan: 63-year-old male with hypothyroidism, GERD, CAD presents for elective L3-S1 decompressive laminectomy and fusion. Postop day 2. Patient is medically opt imized for discharge from internal medicine medical team. #L3-S1 decompressive laminectomy and fusion -Pain management and DVT prophylaxis per primary surgical team #Leukocytosis, likely reactive #Acute blood loss anemia likely postoperative #Hyperglycemia, likely reactive Serum glucose 111 Continue monitor glucose level #Coronary artery disease, Hx of CABG -Continue with aspirin 81 mg, metoprolol 25 mg, Imdur 30 mg and Nitrostat as needed -Continue atorvastatin 80 mg Hold Brilinta, restart at the time of discharge #Hypothyroidism - c/w home Synthroid #GERD - c/w home pantoprazole F: IV LR at 20 mL/hr E: Replete as needed N: Regular diet DVT ppx: per primary surgical team, mechanical for now due to spine surgery Code status: Full code Thank you for allowing us to participate in the care of this pleasant patient. Do not hesitate to contact us with questions. Someone can be reached from the [facility] [place] hospitalist group all hours of the day at [phone] or via perfect serve. I have seen and evaluated the patient today. Discussed with the resident and agree with the residents finding and plan as documented in the resident's note. Changes highlighted in blue font. Objective - Vital Signs Vital signs: Vital Signs Temp 97.8 F 12/14/23 08:00 Pulse 70 12/14/23 08:00 Resp 18 12/14/23 08:00 BP 129/84 12/14/23 08:00 Pulse Ox 95 12/14/23 01:50 FiO2 Intake & Output 12/13/23 12/14/23 12/14/23 18:59 06:59 18:59 Intake Total 100 Output Total 160 60 80 Balance -60 -60 -80 Intake: Intake, IV Titration 100 Amount ceFAZolin 2 gm In Sodium 100 Chloride 0.9% 50 ml @ 100 mls/hr IVPB Q8H [facility] Rx#: [id number] Output: Drainage 160 60 80 Back 160 60 80 Other: Voiding Method Indwelling Catheter Toilet - Labs CBC & Chem 7: 12/13/23 03:17 12/13/23 03:17
--- NOTE | 2023-12-14 13:22 | P.DS ---
Providers Date of admission: 12/14/23 12:41 Expected date of discharge: 12/14/23 Attending physician: Lyndon Irene DO Consults: 12/12/23 11:43 Consult Physician Routine Consulting Provider: Darci Aguiar Consult Reason/Comments: medical management Do you want consulting provider notified?: Yes Primary care physician: [facility] Hospital Course: Hospital Course: The patient was evaluated preoperatively and found to have the diagnosis of Lumbar spondylosis with stenosis. They underwent appropriate preoperative care and were willing to undergo the intended procedure. They underwent a successful L3-S1 decompression with L5-S1 fusion, were recovered appropriately and sent to the floor. While on the floor they worked with physical therapy, occupational therapy and nursing to enhance their recovery experience. Their pain was well controlled through their stay and they were started on appropriate medications, DVT ppx modalities, activity and dietary needs. Daily labs were monitored closely, and transfusions were only used when necessary. Medicine as well as other consulting services have made their input and have helped with our team approach and multidisciplinary care. PT milestones have been met and passed and they have made the recommendation of home with homecare for this patient and treating providers agree with this care path. The patient will be discharged home with appropriate medications, instructions and follow-up information and in stable condition. Patient Condition at Discharge: Good Plan - Discharge Summary Discharge Rx Participant: Yes New Discharge Prescriptions: New HYDROcodone/APAP 5-325MG [[place] 5-325] 1 tab PO Q6HR PRN #28 tab PRN Reason: Pain Acetaminophen [Tylenol Extra Strength] 500 mg PO QID PRN #40 tablet PRN Reason: Pain Aspirin 81 mg PO DAILY #14 tab Sulfamethox-Tmp 800-160Mg [Bactrim DS 800-160 mg] 1 tab PO Q12HR #10 tab Cyclobenzaprine [Flexeril] 5 mg PO TID PRN #40 tablet PRN Reason: Muscle Spasm Sennosides/Docusate Sodium [Senna Plus 8.6-50 mg Softgel] 1 each PO DAILY PRN #20 capsule PRN Reason: Constipation Continue Levothyroxine Sodium [Synthroid] 125 mcg PO QAM Ergocalciferol [Vitamin D2 (DRISDOL)] 50,000 unit PO HOFFMAN Calcium Carbonate [Tums] 1,000 mg PO ACHS PRN PRN Reason: Gi Upset Nitroglycerin Sl Tabs [Nitrostat] 0.4 mg SUBLINGUAL Q5M PRN #25 tab PRN Reason: Chest Pain Acetaminophen [Tylenol Extra Strength] 1,000 mg PO BID PRN PRN Reason: Moderate Pain (Scale 4 To 6) Metoprolol Succinate (ER) [Toprol XL] 25 mg PO QAM Pantoprazole [Protonix] 40 mg PO AC-BID Atorvastatin [Lipitor] 80 mg PO HS #90 tab Ticagrelor [Brilinta] 90 mg PO BID Isosorbide Mononitrate ER [Imdur] 30 mg PO QAM No Action Aspirin 81 mg PO DAILY tab Discharge Medication List Ergocalciferol [Vitamin D2 (DRISDOL)] 50,000 unit PO HOFFMAN 06/08/16 [History] Levothyroxine Sodium [Synthroid] 125 mcg PO QAM 06/08/16 [History] Pantoprazole [Protonix] 40 mg PO AC-BID 09/15/21 [History] Calcium Carbonate [Tums] 1,000 mg PO ACHS PRN 11/29/22 [History] Aspirin 81 mg PO DAILY tab 12/01/22 [Rx] Atorvastatin [Lipitor] 80 mg PO HS #90 tab 12/01/22 [Rx] Nitroglycerin Sl Tabs [Nitrostat] 0.4 mg SUBLINGUAL Q5M PRN #25 tab 12/01/22 [Rx] Acetaminophen [Tylenol Extra Strength] 1,000 mg PO BID PRN 06/29/23 [History] Isosorbide Mononitrate ER [Imdur] 30 mg PO QAM 12/07/23 [History] Metoprolol Succinate (ER) [Toprol XL] 25 mg PO QAM 12/07/23 [History] Ticagrelor [Brilinta] 90 mg PO BID 12/07/23 [History] Acetaminophen [Tylenol Extra Strength] 500 mg PO QID PRN #40 tablet 12/14/23 [Rx] Aspirin 81 mg PO DAILY #14 tab 12/14/23 [Rx] Cyclobenzaprine [Flexeril] 5 mg PO TID PRN #40 tablet 12/14/23 [Rx] HYDROcodone/APAP 5-325MG [[place] 5-325] 1 tab PO Q6HR PRN #28 tab 12/14/23 [Rx] Sennosides/Docusate Sodium [Senna Plus 8.6-50 mg Softgel] 1 each PO DAILY PRN #20 capsule 12/14/23 [Rx] Sulfamethox-Tmp 800-160Mg [Bactrim DS 800-160 mg] 1 tab PO Q12HR #10 tab 12/14/23 [Rx] Follow up Appointment(s)/Referral(s): [facility], [NON-STAFF] - 1-2 Days ([facility] will call you to schedule your in home nursing and physical therapy visits. ) Lyndon Irene DO [Doctor of Osteopathic Medicine] - 12/27/23 10:45 am (With Odalis) Activity/Diet/Wound Care/Special Instructions: Spine Discharge and Recovery Instructions Date of Surgery: 12/12/23 Diagnosis: Lumbar spondylosis with stenosis Procedure: L3-S1 decompression and L5-S1 fusion Medications: See medication list All medication refills should be obtained through your primary care doctor or your clinic spine surgeon. Please discuss prescription refills at your follow up appointment. Do not call the hospital for medication refills. Activity: Encourage ambulation with assist of walker, Up and about 6-8x daily PT/OT daily work on balance, strength and mobility Up in chair with all meals Shower daily Brace: Use brace when up and about, do not wear in bed or shower Dressing: Leave your dressing in place for a total of 3 days post operatively. Then you may remove your dressing and leave open to air. Keep the area clean and if not able to keep area clean, then cover with sterile gauze and tape. Showering: You may shower 3 days after your procedure allowing soap and water to run over incision. Do not scrub. Do not soak. Blot dry. Follow up: Please confirm a follow up appointment with your surgeon 2 weeks post operatively. Please make an appointment to follow up with your PCP in 1-2 weeks after surgery for evaluation '3 phase, 3-week plan' POST OP WEEKS 1-3 1. Lifting/carrying/pushing/pulling limited to less than 5 pounds. 2. Do not sit for longer than 15 minutes at one time. Get up and walk around. Prolonged sitting is NOT advised. If you lay down, see if you can tolerate laying down on you front (belly side) 3. Walk for periods of 15 minutes = 1 mile but no longer; do it multiple times times each day. 4. Ice your low back after activity. POST OP WEEKS 3-6 1. Lifting limited to less than 20 pounds. 2. Do not sit for longer than 30 minutes at a time. Frequently change positions. Use a sit-to stand workstation or take frequent breaks from sitting if you have returned to work. 3. Walk for 30 minutes each day. If possible, do these three or more times a day POST OP WEEKS 6+ At your 6-week appointment we will give you a physical therapy referral to focus on a core stabilization and strengthening program. You should also work on leg & buttock strengthening, hamstring & quadriceps stretching, and continue a low impact aerobic activity program such as swimming, walking, or riding a stationary bicycle. During the initial 6 weeks after your surgery, you are at the highest risk of re-injuring your spine. You should generally avoid BLT's (bending, lifting and twisting combination motions) and follow the above guidelines to reduce the chance of reinjury. You can anticipate post op appointments in our office at approximately 3 weeks and 6 weeks after your surgery. INCISION CARE: If your incision is not draining you do NOT need to cover it with a dressing. Keep your incision clean, dry and intact. In most cases, we apply skin glue, eliza or sutures to the incision at the time of surgery. This will be like a crust or have the appearance of a scab and will fall off in time on its own. The stitches or eliza need to be removed at 3 weeks post op appointment. You may begin to shower 3 days after surgery (this allows the glue to landeros well). However, please avoid scrubbing the incision site or peeling off any of the skin glue. This will ensure optimal healing of your incision. Also, during this time avoid soaking the incision area in water - this includes swimming pools, hot tubs or baths. No ointments, lotions or oils on the incision until your surgeon allows. Leave eliza, sutures or glue in place. Neurological dysfunction that comes on suddenly can also be a sign of a stroke. Below some common symptoms of a stroke are listed: B - balance difficulty such as sudden onset walking or leaning to one side - NEW E - eye problem such as sudden double vision or trouble seeing on one side - NEW F - Facial weakness or numbness on one side - NEW A - Arm or leg weakness or numbness on one side - NEW S - Slurred speech or difficulty with word finding - NEW T - Time is BRAIN! Call 911 as soon as you recognize these symptoms Diet: Consume a regular diet rich in vegetables and lean protein such as chicken or fish. You should consume in a ratio of approximately 20% fats|40% carbohydrates|40%protein. Vegetables, sweet potatoes, brown rice or quinoa are examples of good carbohydrates. Chips, white bread, cookies and sweets/sugar are examples of bad carbohydrates. Limit your bad carbs, go wild with good carbs. "Life's Simple 7" Guidelines as per [place] [employer] These will help you reclaim your life after surgery and hvac sheet metal installer helper in your recovery, keeping in mind your restrictions. (1) Get Active. Physical activity can help people lose weight, control high blood pressure and cholesterol, feel emotionally better, and sleep better. (2) Control Cholesterol. Avoid a diet high in saturated fat, trans fat, & cholesterol. Limit whole milk & cream, ice cream, butter, egg yolks, processed meats (like sausage and hot dogs), and fatty meats. Choose healthy foods that are low in saturated fat, trans fat and cholesterol which include: Fruits and vegetables, fiber rich grain products (like whole grain pasta and brown rice), lean meat such as chicken, fish, nuts, seeds, and legumes. (3) Eat Better. Eat small portions. Shop at the grocery with a list and do not stray from it. Tips for a healthy diet include: Limit sodium intake to less than 1500mg daily, avoid prepackaged, processed, and fast foods, choose a diet rich in fruits, vegetables, and whole grain, high fiber foods, and limit saturated & cholesterol in your diet. (4) Manage Blood Pressure. If you have high blood pressure, you should have a cuff at home so that you can check your blood pressure regularly. Be sure you have a good cuff. An arm one is generally better than a wrist one. Bring the cuff to a doctor's appointment to validate that the measurements that your cuff are taking are accurate. Take your blood pressure twice daily when you are sitting down and relaxing. Record the numbers in a log and bring this log with you to your doctors' appointments. (5) Lose Weight if your BMI is above 25. A healthy BMI is between 19-25. To calculate Your BMI, you may use a Standard BMI Calculator on the NIH BMI website: <www.nhlbi.nih.gov/guidelines/obesity/BMI/bmicalc.htm>. Weigh oneself daily. If you are overweight, set a goal to lose weight. A pound a week loss if needed is a good target. (6) Reduce Blood Sugar. Limit foods and liquids with "added sugars." (Added sugars include sucrose, fructose, glucose, maltose, dextrose, high fructose corn syrup, corn syrup, concentrated fruit juice and honey). (7) Stop Smoking. If you smoke, quitting smoking is one of the best things that you can do for your health. Smoking increases your risk of heart attack, stroke, and peripheral vascular disease, which is a build-up of plaque in your arteries. Please discard all the cigarettes and lighters in your house. Have a plan for what you will do when you have the urge to smoke. Direct and second- hand smoke shortens your life as well as the lives of your family, friends and others around you. For your health and the health of those around you, please c onsider quitting! Proper Bending Body Mechanics: Maintain a wide stance with one foot slightly in front of the other. Keep your back straight. Bend utilizing the strength in your hips and knees. Do not bend at the waist. Maintain the lifted object at your waist-level close to your body. Avoid lifting weight that causes immediately pain or pain anywhere in the body afterwards. Smoking/Nicotine If there was ever one thing that you could do to increase your overall health, decrease your risk of cardiovascular problems by about 39% the second you make the choice, it is to STOP SMOKING. Your body's most instant gratification is the second you stop smoking. We have all heard the studies, read the articles but it is true, smoking is extremely bad for your overall health, and moreover it is detrimental to your bone health. Nicotine, IN ANY FORM, kills bone cells, prevents your body from healing fractures, and significantly prolongs healing after surgery. In spine surgery specifically, it increases your risk of not healing your bones to create a fusion and increases your risk of having a revision surgery due to this up to 60%. I know it is hard. I know it feels impossible. But there are ways. Take control of your life. We are here to help you through it. And when you are ready, ask us and we can direct you to help if you desire. Use the START Plan to Quit Smoking (please visit the Helpguide.org website listed below for more information): S = Set a quit date. Choose a date within the next 2 weeks, so you have enough time to prepare without losing your motivation to quit. If you mainly smoke at work, quit on the weekend, so you have a few days to adjust to the change. T = Tell family, friends, and co-workers that you plan to quit. Let your friends and family in on your plan to quit smoking and tell them you need their support and encouragement to stop. Look for a quit salma who wants to stop smoking as well. You can help each other get through the rough times. A = Anticipate and plan for the challenges you'll face while quitting. Most people who begin smoking again do so within the first 3 months. You can help yourself make it through by preparing ahead for common challenges, such as nicotine withdrawal and cigarette cravings. R = Remove cigarettes and other tobacco products from your home, car, and work. Throw away all your cigarettes (no emergency pack!), lighters, ashtrays, and matches. Wash your clothes and freshen up anything that smells like smoke. Shampoo your car, clean your drapes and carpet, and steam your furniture. T = Talk to your doctor about getting help to quit. Your doctor can prescribe medication to help with withdrawal and suggest other alternatives. If you can't see a doctor, you can get many products over the counter at your local pharmacy or grocery store, including the nicotine patch, nicotine lozenges, and nicotine gum. Resources for Quitting Smoking: <https://www.[place].gov/documents/[facility]/Quit_Tobacco_Resources_for_patients_313 480_7.pdf> Supplementation: Take recommended dosages of Vitamin D and Calcium to help fortify your bones and help them to heal. See your health maintenance packet for dosages and recommended levels. DVT/VTE prophylaxis: You will be given compression stockings from the hospital. Wear these daily for the first two weeks after surgery. You may take them off at night. You may be prescribed a medication to help thin your blood. Take this as directed. If you are not prescribed this medication, early and frequent ambulation has been shown to be the best prophylaxis to deep vein thrombosis and sequelae related to this event. Discharge Disposition: HOME WITH HOME HEALTH SERVICES
[2023-12-14 14:13] VITALS: BP 121/81; PULSE 75; RESP 15; TEMP 97.7
== END 2023-12-14 15:24 | disposition home health service (06) | DRG 427 ==
LOC: OR 09:30 → 4SSUR 16:37 → OR 12-14 12:41
PROVIDERS: ADMIT Orthopaedic Surgery; ATTEND Orthopaedic Surgery
PROC: 0SG1071 Fusion of 2 or more Lumbar Vertebral Joints with Autologous Tissue Substitute, Posterior Approach, Posterior Column, Open Approach (ICD-10-PCS; 2023-12-12)
PROC: 0SG30AJ Fusion of Lumbosacral Joint with Interbody Fusion Device, Posterior Approach, Anterior Column, Open Approach (ICD-10-PCS; 2023-12-12)
PROC: 0SG3071 Fusion of Lumbosacral Joint with Autologous Tissue Substitute, Posterior Approach, Posterior Column, Open Approach (ICD-10-PCS; 2023-12-12)
PROC: 01NB0ZZ Release Lumbar Nerve, Open Approach (ICD-10-PCS; 2023-12-12)
PROC: 01NR0ZZ Release Sacral Nerve, Open Approach (ICD-10-PCS; 2023-12-12)
PROC: 0ST40ZZ Resection of Lumbosacral Disc, Open Approach (ICD-10-PCS; 2023-12-12)
PROC: 0ST20ZZ Resection of Lumbar Vertebral Disc, Open Approach (ICD-10-PCS; 2023-12-12)
PROC: 8E0WXBZ Computer Assisted Procedure of Trunk Region (ICD-10-PCS; 2023-12-12)
PROC: 0SG10AJ Fusion of 2 or more Lumbar Vertebral Joints with Interbody Fusion Device, Posterior Approach, Anterior Column, Open Approach (ICD-10-PCS; principal; 2023-12-12 11:45)
DX: M47.26 Other spondylosis with radiculopathy, lumbar region (principal); D62 Acute posthemorrhagic anemia; E03.9 Hypothyroidism, unspecified; M48.061 Spinal stenosis, lumbar region without neurogenic claudication; M43.17 Spondylolisthesis, lumbosacral region; M47.27 Other spondylosis with radiculopathy, lumbosacral region; M48.07 Spinal stenosis, lumbosacral region; G47.9 Sleep disorder, unspecified; I25.10 Atherosclerotic heart disease of native coronary artery without angina pectoris; D72.828 Other elevated white blood cell count; G89.29 Other chronic pain; R73.9 Hyperglycemia, unspecified; K21.9 Gastro-esophageal reflux disease without esophagitis; Z79.02 Long term (current) use of antithrombotics/antiplatelets; Z96.651 Presence of right artificial knee joint; Z95.1 Presence of aortocoronary bypass graft; Z79.890 Hormone replacement therapy; Z79.899 Other long term (current) drug therapy; Z95.5 Presence of coronary angioplasty implant and graft; Z87.891 Personal history of nicotine dependence; Z79.82 Long term (current) use of aspirin
CPT/HCPCS: 72100; 72131; 80048; 85025